=== PATIENT | female | born 1970 | race Caucasian/White ===

== ENCOUNTER → 2018-06-05 09:05 | Outpatient (CLI) | payer OTHER, SELFPAY ==
--- NOTE | 2018-06-05 09:13 | DI.CT.S_ITS ---
PROCEDURE: CT CHEST WO CON INDICATIONS: INTERCOSTAL PAIN TECHNIQUE: Noncontrast 2.0-2.5 mm thick sections acquired from the pulmonary apices to the posterior costophrenic angles. 7 mm thick coronal and sagittal MIP reformats were then acquired. A low radiation dose technique was utilized. COMPARISON: [facility], CT, PE STUDY (CTA CHEST), 11/23/2017, 12:05. FINDINGS: Image quality: Diagnostic, given the low radiation dose technique. Lungs and pleura: No infiltrate, pneumothorax or pleural effusion. The band of linear density and subpleural rounded atelectasis in the right lower lobe on last exam has resolved. There is slight, diffuse thickening of the right major fissure and there is a linear scar or atelectasis at the right base anteriorly, oriented AP. Mediastinum: Heart size is normal. No pericardial effusion. No mediastinal adenopathy by size criteria. Thoracic aorta and central pulmonary arteries are normal in size. Esophagus is normal in caliber. No hiatal hernia. Bones and chest wall: No suspicious bony lesions. No vertebral body compression fractures. No axillary or supraclavicular adenopathy by size criteria. Thyroid gland appears normal. Abdomen: Visualized upper abdomen solid organs and bowel loops appear normal in the absence of contrast. IMPRESSION: 1. No acute or active cardiopulmonary abnormality. No osseous abnormality. Source of intercostal pain not seen. 2. Mild thickening of the right major fissure and linear scar in the superior segment right lower lobe incidentally noted. Dictated by: Terrence Lin M.D. on 06/05/2018 at 10:26 Approved by: Terrence Lin M.D. on 06/05/2018 at 10:34
== END ==
PROVIDERS: Family Provider Family Medicine; PCP Family Medicine; Visit Provider Internal Medicine Rheumatology
DX: R07.82 Intercostal pain (principal)
CPT/HCPCS: 71250

== ENCOUNTER → 2018-06-27 19:59 | Outpatient (CLI) | payer OTHER, SELFPAY ==
--- NOTE | 2018-06-27 20:05 | DI.MRI.S_ITS ---
PROCEDURE: MR THORACIC SPINE WO CON INDICATIONS: BACK PAIN TECHNIQUE: Noncontrast sagittal T1 spine echo and T2 fast spin echo, sagittal STIR, axial T1 and T2 fast spin echo through the thoracic spine. COMPARISON: None. FINDINGS: Image quality: Excellent. Alignment and Curvature: There is normal bony alignment. Bone Marrow: Marrow is of normal overall signal. No acute vertebral body compression fractures. Note is made of mild degenerative disc height reduction without adjacent marrow edema at C5-6, indicating slight degenerative disc disease at this site, without spinal or foraminal stenosis. Spinal Cord: Visualized spinal cord is normal in size and signal except for presence of mild prominence of the central spinal canal from C3-4 through the C5-6 intervertebral levels, without mass effect or associated spinal and foraminal stenosis through this area.. Paraspinous Soft Tissues: No paravertebral masses. Miscellaneous: On axial images, central canal and foramina appear widely patent at all scanned levels. IMPRESSION: 1. There is a very mild degree of degenerative disc height reduction and desiccation at C5-6 without associated spinal or foraminal stenosis. 2. 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 There is no spinal or foraminal stenosis associated with this finding. The appearance is not considered to represent a cystic neoplasm of the cord or syrinx, in my opinion. If clinically desired, however, a followup thoracic spine MRI could be obtained in 6 months to establish stability over time. Dictated by: Carson Souza M.D. on 06/28/2018 at 10:04 Approved by: Carson Souza M.D. on 06/28/2018 at 10:20
== END ==
PROVIDERS: Family Provider Family Medicine; PCP Family Medicine; Visit Provider Physical Medicine & Rehabilitation Pain Medicine
DX: M50.30 Other cervical disc degeneration, unspecified cervical region (principal); M48.02 Spinal stenosis, cervical region
CPT/HCPCS: 72146

== ENCOUNTER 2018-07-24 17:02 | Emergency (ER) | payer OTHER, SELFPAY ==
[2018-07-24 17:05] VITALS: BP 151/83; PULSE 117; RESP 16; TEMP 37.1; O2SAT 100
--- NOTE | 2018-07-24 18:55 | ED.BACK ---
HPI - Back Pain/Injury <Melissa Cid PA-C - Last Filed: 07/24/18 22:48> General Chief Complaint: Back Pain/Injury Stated Complaint: STATES SEVERE RIB PAIN Time Seen by Provider: 07/24/18 18:55 Source: patient Mode of arrival: ambulatory Limitations: no limitations History of Present Illness HPI Narrative: This 47-year-old female returns to the ED due to persistent right thoracic pain which has been going on for about 9 months. She was initially diagnosed with pleurisy, which she says is better, however she continues to have pain in her right mid posterior ribs on a daily basis, worse with movement, twisting, cough. She also can sleep at night due to discomfort. She is taking Tylenol and meloxicam but states that this is no longer functioning. She was actually referred to Dr. Junior by her PCP and got thoracic MRI which shows some type of spinal cord abnormality for which she is awaiting neurology referral. He thinks this may be neuropathic pain. She states that pain is not acutely worse today, but she came home from work today due to it (she walks frequently at work) and is frustrated with her lack of improvement in pain. She states that in the past once she took a [place] with extra Tylenol for pleurisy and that seemed to help somewhat. She has not tried pain patches or other topical medications. She has not tried gabapentin or other medications for nerve pain. She denies any new injury or new pain. She denies any chest pain, new dyspnea, recent cough, extremity pain or swelling or other new symptoms and states that she mainly came here because she learned that her Neurology referral had been delayed and care line advised her to come in when she called Related Data Home Medications Medication Instructions Recorded Confirmed Vitamin B-12 1 tab PO DAILY 07/24/18 07/24/18 bupropion HCl 450 mg PO DAILY 07/24/18 07/24/18 calcium carbonate-vitamin D3 1 cap PO DAILY 07/24/18 07/24/18 [Calcium 600 + D(3)] drospirenone-ethinyl estradiol 1 tab PO QPM 07/24/18 07/24/18 [JORDAN (28)] guanfacine 1 mg PO BID 07/24/18 07/24/18 meloxicam 15 mg PO QPM 07/24/18 07/24/18 methotrexate sodium 25 mg PO QWEEK 07/24/18 07/24/18 Previous Rx's Medication Instructions Recorded gabapentin 300 mg PO Q8H #20 cap 07/24/18 lidocaine [Lidoderm] 3 patch TOP DAILY #30 each 07/24/18 Allergies Allergy/AdvReac Type Severity Reaction Status Date / Time amoxicillin Allergy Unknown HIVES Verified 07/24/18 19:41 clavulanic acid Allergy Unknown STOMACH Verified 07/24/18 19:41 erythromycin base Allergy Unknown STOMACH Verified 07/24/18 19:41 PROBLEMS bacitracin Allergy Verified 07/24/18 19:41 [From Neosporin ([id number])] fluoxetine Allergy Verified 07/24/18 19:41 neomycin Allergy Verified 07/24/18 19:41 [From Neosporin ([id number])] polymyxin B Allergy Verified 07/24/18 19:41 [From Neosporin ([id number])] Review of Systems <Melissa Cid PA-C - Last Filed: 07/24/18 22:48> Review of Systems All systems reviewed & are unremarkable except as noted in HPI and below Exam <Melissa Cid PA-C - Last Filed: 07/24/18 22:48> Narrative Exam Narrative: GENERAL APPEARANCE: Patient sitting comfortably, in no distress. NECK/THYROID: Neck supple, no JVD. LUNGS: Clear to auscultation bilaterally. HEART: Regular rate and rhythm without murmur, normal S1, S2, no S3 or S4. EXTREMITIES: No edema. No calf tenderness NEUROLOGIC: Alert and oriented, normal speech, and coordination. MS: TTP over R. mid/lateral ribs most over 7-8th ribs at R. mid to lateral scapular line DERM: No exanthem Initial Vital Signs Initial Vital Signs: Vital Signs Temperature 98.7 F 07/24/18 17:05 Pulse Rate 117 H 07/24/18 17:05 Respiratory Rate 16 07/24/18 17:05 Blood Pressure 151/83 H 07/24/18 17:05 Pulse Oximetry 100 07/24/18 17:05 <Josefina Palencia DO - Last Filed: 07/25/18 04:00> Initial Vital Signs Initial Vital Signs: Vital Signs Temperature 98.7 F 07/24/18 17:05 Pulse Rate 117 H 07/24/18 17:05 Respiratory Rate 16 07/24/18 17:05 Blood Pressure 151/83 H 07/24/18 17:05 Pulse Oximetry 100 07/24/18 17:05 Course <Melissa Cid PA-C - Last Filed: 07/24/18 22:48> Additional Information: Patient does not have any acute changes, but frustrated with difficulty pain is causing with daily activities and apparently her neurology appointment is some time out. She had taken [place] previously without side effects. We tried this tonight with Lidoderm patches and she had minimal relief. We decided to try gabapentin as Physiatry has advised her this may be nerve related pain based on her MRI findings. She was given a dose here and explained that this may need adjustment or titration with her PCP. She is agreeable and also agrees to avoid driving when using. She will see her PCP in the next few days for follow-up to determine plan for pain management while awaiting consultation Orders Ordered: Discontinued Medications Acetaminophen (Tylenol) 325 mg PO Q6HR PRN PRN Reason: As Needed for Fever/Mild Pain Last Admin: 07/24/18 19:57 Dose: 325 mg Hydrocodone Bitart/Acetaminophen ([place] 5/325) 1 tab PO NOW ONE Stop: 07/24/18 19:14 Last Admin: 07/24/18 19:56 Dose: 1 tab Gabapentin (Neurontin) 300 mg PO NOW ONE Stop: 07/24/18 21:36 Last Admin: 07/24/18 21:52 Dose: 300 mg Lidocaine (Lidoderm) 2 each TOP NOW ONE Stop: 07/24/18 19:14 Last Admin: 07/24/18 19:57 Dose: 2 each Vital Signs - 8 hr 07/24/18 22:09 Temperature 97.2 F L Pulse Rate 87 Respiratory Rate 16 Blood Pressure 109/80 Pulse Oximetry 100 <Josefina Palencia DO - Last Filed: 07/25/18 04:00> Orders Ordered: Discontinued Medications Acetaminophen (Tylenol) 325 mg PO Q6HR PRN PRN Reason: As Needed for Fever/Mild Pain Last Admin: 07/24/18 19:57 Dose: 325 mg Hydrocodone Bitart/Acetaminophen ([place] 5/325) 1 tab PO NOW ONE Stop: 07/24/18 19:14 Last Admin: 07/24/18 19:56 Dose: 1 tab Gabapentin (Neurontin) 300 mg PO NOW ONE Stop: 07/24/18 21:36 Last Admin: 07/24/18 21:52 Dose: 300 mg Lidocaine (Lidoderm) 2 each TOP NOW ONE Stop: 07/24/18 19:14 Last Admin: 07/24/18 19:57 Dose: 2 each Vital Signs - 8 hr 07/24/18 22:09 Temperature 97.2 F L Pulse Rate 87 Respiratory Rate 16 Blood Pressure 109/80 Pulse Oximetry 100 Discharge Plan Departure Patient Disposition: Home Clinical Impression: Right-sided thoracic back pain Discharge Date/Time: 07/24/18 22:10 Interventions: ED Discharge Assessment Last Done: 07/24/18 22:09 Instructions: DI for Thoracic Back Pain Activity Restrictions/Additional Instructions: Please return if you have any acutely he worsening symptoms. I have sent in a prescription for the lidocaine patch to your pharmacy to try. You can wear up to 3 at a time for up to 12 hr daily. If these are not covered on your insurance, there is a similar 4% patch that you can buy [id number]. I have also sent in a prescription for gabapentin, that we gave you here tonight to try. This is often more helpful for nerve pain then other medications, and since the hydrocodone/acetaminophen only helped a little bit, this is worth trying. You can continue Tylenol as needed. Continue your meloxicam as well. You should avoid driving while on the gabapentin until you know how sleepy it makes you. I have given you the usual starting dose of 300 mg every 8 hr. You can increase the dose to 2 capsules at bedtime if needed, and you may need to get a smaller dose from your PCP if these are too sedating. Please follow-up with your PCP in the next 2 or 3 days to assess how this is working and figure out a a plan to help with her pain while you are awaiting the neurology evaluation Prescriptions: New gabapentin 300 mg capsule 300 mg PO Q8H Qty: 20 RF: 0 lidocaine [Lidoderm] 5 % adhesive patch,medicated 3 patch TOP DAILY Qty: 30 RF: 0 No Action meloxicam 15 mg tablet 15 mg PO QPM RF: 0 methotrexate sodium 2.5 mg tablet 25 mg PO QWEEK RF: 0 guanfacine 1 mg tablet 1 mg PO BID RF: 0 bupropion HCl 150 mg tablet extended release 24 hr 450 mg PO DAILY RF: 0 drospirenone-ethinyl estradiol [JORDAN (28)] 3-0.02 mg tablet 1 tab PO QPM RF: 0 calcium carbonate-vitamin D3 [Calcium 600 + D(3)] 600 mg calcium- 200 unit Capsule 1 cap PO DAILY RF: 0 Vitamin B-12 1 tab PO DAILY RF: 0 Referrals: Alison Bird MD [Primary Care Provider] - Madhu Junior MD [Physician] - <Josefina Palencia DO - Last Filed: 07/25/18 04:00> Cosign ED Attending Cosignature Attestation: I was immediately available in the department for consultation. This documentation has been reviewed and I agree with assessment and plan. Supervised by Josefina Palencia DO
--- NOTE | 2018-07-24 19:16 | ED_ITS ---
HPI - Back Pain/Injury <Melissa Cid PA-C - Last Filed: 07/24/18 22:48> General Chief Complaint: Back Pain/Injury Stated Complaint: STATES SEVERE RIB PAIN Time Seen by Provider: 07/24/18 18:55 Source: patient Mode of arrival: ambulatory Limitations: no limitations History of Present Illness HPI Narrative: This 47-year-old female returns to the ED due to persistent right thoracic pain which has been going on for about 9 months. She was initially diagnosed with pleurisy, which she says is better, however she continues to have pain in her right mid posterior ribs on a daily basis, worse with movement, twisting, cough. She also can sleep at night due to discomfort. She is taking Tylenol and meloxicam but states that this is no longer functioning. She was actually referred to Dr. Junior by her PCP and got thoracic MRI which shows some type of spinal cord abnormality for which she is awaiting neurology referral. He thinks this may be neuropathic pain. She states that pain is not acutely worse today, but she came home from work today due to it ( she walks frequently at work) and is frustrated with her lack of improvement in pain. She states that in the past once she took a [place] with extra Tylenol for pleurisy and that seemed to help somewhat. She has not tried pain patches or other topical medications. She has not tried gabapentin or other medications for nerve pain. She denies any new injury or new pain. She denies any chest pain , new dyspnea, recent cough, extremity pain or swelling or other new symptoms and states that she mainly came here because she learned that her Neurology referral had been delayed and care line advised her to come in when she called Related Data Home Medications Medication Instructions Recorded Confirmed Vitamin B-12 1 tab PO DAILY 07/24/18 07/24/18 bupropion HCl 450 mg PO DAILY 07/24/18 07/24/18 calcium carbonate-vitamin D3 1 cap PO DAILY 07/24/18 07/24/18 [Calcium 600 + D(3)] drospirenone-ethinyl estradiol 1 tab PO QPM 07/24/18 07/24/18 [JORDAN (28)] guanfacine 1 mg PO BID 07/24/18 07/24/18 meloxicam 15 mg PO QPM 07/24/18 07/24/18 methotrexate sodium 25 mg PO QWEEK 07/24/18 07/24/18 Previous Rx's Medication Instructions Recorded gabapentin 300 mg PO Q8H #20 cap 07/24/18 lidocaine [Lidoderm] 3 patch TOP DAILY #30 each 07/24/18 Allergies Allergy/AdvReac Type Severity Reaction Status Date / Time amoxicillin Allergy Unknown HIVES Verified 07/24/18 19:41 clavulanic acid Allergy Unknown STOMACH Verified 07/24/18 19:41 erythromycin base Allergy Unknown STOMACH Verified 07/24/18 19:41 PROBLEMS bacitracin Allergy Verified 07/24/18 19:41 [From Neosporin ([id number])] fluoxetine Allergy Verified 07/24/18 19:41 neomycin Allergy Verified 07/24/18 19:41 [From Neosporin ([id number])] polymyxin B Allergy Verified 07/24/18 19:41 [From Neosporin ([id number])] Review of Systems <Melissa Cid PA-C - Last Filed: 07/24/18 22:48> Review of Systems All systems reviewed & are unremarkable except as noted in HPI and below Exam <Melissa Cid PA-C - Last Filed: 07/24/18 22:48> Narrative Exam Narrative: GENERAL APPEARANCE: Patient sitting comfortably, in no distress. NECK/THYROID: Neck supple, no JVD. LUNGS: Clear to auscultation bilaterally. HEART: Regular rate and rhythm without murmur, normal S1, S2, no S3 or S4. EXTREMITIES: No edema. No calf tenderness NEUROLOGIC: Alert and oriented, normal speech, and coordination. MS: TTP over R. mid/lateral ribs most over 7-8th ribs at R. mid to lateral scapular line DERM: No exanthem Initial Vital Signs Initial Vital Signs: Vital Signs Temperature 98.7 F 07/24/18 17:05 Pulse Rate 117 H 07/24/18 17:05 Respiratory Rate 16 07/24/18 17:05 Blood Pressure 151/83 H 07/24/18 17:05 Pulse Oximetry 100 07/24/18 17:05 <Josefina Palencia DO - Last Filed: 07/25/18 04:00> Initial Vital Signs Initial Vital Signs: Vital Signs Temperature 98.7 F 07/24/18 17:05 Pulse Rate 117 H 07/24/18 17:05 Respiratory Rate 16 07/24/18 17:05 Blood Pressure 151/83 H 07/24/18 17:05 Pulse Oximetry 100 07/24/18 17:05 Course <Melissa Cid PA-C - Last Filed: 07/24/18 22:48> Additional Information: Patient does not have any acute changes, but frustrated with difficulty pain is causing with daily activities and apparently her neurology appointment is some time out. She had taken [place] previously without side effects. We tried this tonight with Lidoderm patches and she had minimal relief. We decided to try gabapentin as Physiatry has advised her this may be nerve related pain based on her MRI findings. She was given a dose here and explained that this may need adjustment or titration with her PCP. She is agreeable and also agrees to avoid driving when using. She will see her PCP in the next few days for follow-up to determine plan for pain management while awaiting consultation Orders Ordered: Discontinued Medications Acetaminophen (Tylenol) 325 mg PO Q6HR PRN PRN Reason: As Needed for Fever/Mild Pain Last Admin: 07/24/18 19:57 Dose: 325 mg Hydrocodone Bitart/Acetaminophen ([place] 5/325) 1 tab PO NOW ONE Stop: 07/24/18 19:14 Last Admin: 07/24/18 19:56 Dose: 1 tab Gabapentin (Neurontin) 300 mg PO NOW ONE Stop: 07/24/18 21:36 Last Admin: 07/24/18 21:52 Dose: 300 mg Lidocaine (Lidoderm) 2 each TOP NOW ONE Stop: 07/24/18 19:14 Last Admin: 07/24/18 19:57 Dose: 2 each Vital Signs - 8 hr 07/24/18 22:09 Temperature 97.2 F L Pulse Rate 87 Respiratory Rate 16 Blood Pressure 109/80 Pulse Oximetry 100 <Josefina Palencia DO - Last Filed: 07/25/18 04:00> Orders Ordered: Discontinued Medications Acetaminophen (Tylenol) 325 mg PO Q6HR PRN PRN Reason: As Needed for Fever/Mild Pain Last Admin: 07/24/18 19:57 Dose: 325 mg Hydrocodone Bitart/Acetaminophen ([place] 5/325) 1 tab PO NOW ONE Stop: 07/24/18 19:14 Last Admin: 07/24/18 19:56 Dose: 1 tab Gabapentin (Neurontin) 300 mg PO NOW ONE Stop: 07/24/18 21:36 Last Admin: 07/24/18 21:52 Dose: 300 mg Lidocaine (Lidoderm) 2 each TOP NOW ONE Stop: 07/24/18 19:14 Last Admin: 07/24/18 19:57 Dose: 2 each Vital Signs - 8 hr 07/24/18 22:09 Temperature 97.2 F L Pulse Rate 87 Respiratory Rate 16 Blood Pressure 109/80 Pulse Oximetry 100 Discharge Plan Departure Patient Disposition: Home Clinical Impression: Right-sided thoracic back pain Discharge Date/Time: 07/24/18 22:10 Interventions: ED Discharge Assessment Last Done: 07/24/18 22:09 Instructions: DI for Thoracic Back Pain Activity Restrictions/Additional Instructions: Please return if you have any acutely he worsening symptoms. I have sent in a prescription for the lidocaine patch to your pharmacy to try. You can wear up to 3 at a time for up to 12 hr daily. If these are not covered on your insurance, there is a similar 4% patch that you can buy [id number]. I have also sent in a prescription for gabapentin, that we gave you here tonight to try. This is often more helpful for nerve pain then other medications, and since the hydrocodone/acetaminophen only helped a little bit, this is worth trying. You can continue Tylenol as needed. Continue your meloxicam as well. You should avoid driving while on the gabapentin until you know how sleepy it makes you. I have given you the usual starting dose of 300 mg every 8 hr. You can increase the dose to 2 capsules at bedtime if needed, and you may need to get a smaller dose from your PCP if these are too sedating. Please follow-up with your PCP in the next 2 or 3 days to assess how this is working and figure out a a plan to help with her pain while you are awaiting the neurology evaluation Prescriptions: New gabapentin 300 mg capsule 300 mg PO Q8H Qty: 20 RF: 0 lidocaine [Lidoderm] 5 % adhesive patch,medicated 3 patch TOP DAILY Qty: 30 RF: 0 No Action meloxicam 15 mg tablet 15 mg PO QPM RF: 0 methotrexate sodium 2.5 mg tablet 25 mg PO QWEEK RF: 0 guanfacine 1 mg tablet 1 mg PO BID RF: 0 bupropion HCl 150 mg tablet extended release 24 hr 450 mg PO DAILY RF: 0 drospirenone-ethinyl estradiol [JORDAN (28)] 3-0.02 mg tablet 1 tab PO QPM RF: 0 calcium carbonate-vitamin D3 [Calcium 600 + D(3)] 600 mg calcium- 200 unit Capsule 1 cap PO DAILY RF: 0 Vitamin B-12 1 tab PO DAILY RF: 0 Referrals: Alison Bird MD [Primary Care Provider] - Madhu Junior MD [Physician] - <Josefina Palencia DO - Last Filed: 07/25/18 04:00> Cosign ED Attending Cosignature Attestation: I was immediately available in the department for consultation. This documentation has been reviewed and I agree with assessment and plan. Supervised by Josefina Palencia DO
[2018-07-24] MEDS: HYDROCODONE/ACET 5/325 TABLET 1 TAB PO (19:56)
[2018-07-24] MEDS: ACETAMINOPHEN 325 MG TABLET PO (19:57)
[2018-07-24] MEDS: LIDOCAINE PATCH 1 EACH ADH..PATCH 2 EACH TOP (19:57)
[2018-07-24] MEDS: GABAPENTIN 300 MG CAPSULE PO (21:52)
[2018-07-24 22:09] VITALS: BP 109/80; PULSE 87; RESP 16; TEMP 36.2; O2SAT 100
== END 2018-07-24 22:10 | disposition home or self-care (01) ==
PROVIDERS: Emergency Provider Internal Medicine; Family Provider Family Medicine; PCP Family Medicine
DX: M54.6 Pain in thoracic spine (principal)
CPT/HCPCS: 99282; 99283

== ENCOUNTER 2018-07-31 10:46 | Emergency (ER) | payer OTHER, SELFPAY ==
[2018-07-31] VITALS (11 sets, daily range): BP systolic 106–126; BP diastolic 61–79; PULSE 89–118; RESP 12–28; TEMP 36.6; O2SAT 93–100; BMI 20.5
--- NOTE | 2018-07-31 11:28 | ED.BACK ---
HPI - Back Pain/Injury General Chief Complaint: Back Pain/Injury Stated Complaint: BACK PAIN MOVING TOWARDS RIBS Time Seen by Provider: 07/31/18 10:50 Source: patient and family Mode of arrival: ambulatory Limitations: no limitations History of Present Illness HPI Narrative: 47-year-old female presents with her for evaluation of ongoing right-sided upper back pain that has been present for many months. She had initially been treated for pleurisy a few times and without resolution she was eventually referred to a pain physician. This physician ordered an MRI and noted some abnormalities in her thoracic region which prompted an outpatient routine referral to [facility]rology at [facility]. The appointment is on . She denies any numbness, tingling or weakness. Her pain had improved a bit after some hydrocodone but is now keeping her awake at night. She denies any chest pain or shortness of breath. She denies nausea, vomiting or diarrhea. She denies abdominal pain. Her pain is worse when she moves and improves with rest MD Complaint: back pain Onset (ago): minute(s) Duration: constant Similar Symptoms Previously: Yes Location: thoracic spine and right upper back Severity: moderate Quality: sharp and stabbing Radiation: none Relieving factors: immobilization Exacerbating factors: movement Treatments prior to arrival: prescription analgesics Related Data Home Medications Medication Instructions Recorded Confirmed Vitamin B-12 1 tab PO DAILY 07/24/18 07/31/18 bupropion HCl 450 mg PO DAILY 07/24/18 07/31/18 calcium carbonate-vitamin D3 1 cap PO DAILY 07/24/18 07/31/18 [Calcium 600 + D(3)] drospirenone-ethinyl estradiol 1 tab PO QPM 07/24/18 07/31/18 [JORDAN (28)] guanfacine 1 mg PO BID 07/24/18 07/31/18 meloxicam 15 mg PO QPM 07/24/18 07/31/18 methotrexate sodium 25 mg PO SA 07/24/18 07/31/18 gabapentin 1 cap PO TID 07/31/18 07/31/18 Previous Rx's Medication Instructions Recorded ondansetron [Zofran ODT] 4 mg PO Q6H PRN #14 tab 07/31/18 oxycodone 5 mg PO Q4-6H PRN #20 tab 07/31/18 Allergies Allergy/AdvReac Type Severity Reaction Status Date / Time amoxicillin Allergy Unknown HIVES Verified 07/31/18 10:53 clavulanic acid Allergy Unknown STOMACH Verified 07/31/18 10:53 erythromycin base Allergy Unknown STOMACH Verified 07/31/18 10:53 PROBLEMS bacitracin Allergy Verified 07/31/18 10:53 [From Neosporin ([id number])] fluoxetine Allergy Verified 07/31/18 10:53 neomycin Allergy Verified 07/31/18 10:53 [From Neosporin ([id number])] polymyxin B Allergy Verified 07/31/18 10:53 [From Neosporin ([id number])] Review of Systems Review of Systems All systems reviewed & are unremarkable except as noted in HPI and below Constitutional Denies chills, Denies fever(s), Denies lethargy and Denies weakness Eyes Denies change in vision, Denies eye discharge, Denies irritation and Denies loss of vision ENT Ears, Nose, Mouth, and Throat: Denies change in voice, Denies neck pain and Denies sore throat Cardiovascular Denies chest pain, Denies irregular heart rhythm, Denies lightheadedness, Denies palpitations, Denies dyspnea, Denies dyspnea on exertion and Denies orthopnea Respiratory Denies cough, Denies dyspnea, Denies dyspnea on exertion and Denies wheezing Gastrointestinal Gastrointestinal: Denies abdominal pain, Denies change in bowel habits, Denies diarrhea, Denies nausea and Denies vomiting Genitourinary Denies hematuria, Denies flank pain, Denies urinary incontinence and Denies urinary urgency Musculoskeletal Reports back pain, Reports limited range of motion and Denies neck pain Integumentary/Breasts Denies pruritus, Denies erythema, Denies rash and Denies wounds Neurologic Denies confusion, Denies loss of vision and Denies weakness Psychiatric Denies anxiety, Denies confusion, Denies depression, Denies homicidal ideation and Denies suicidal ideation Endocrine Denies palpitations Hematologic/Lymphatic Denies easy bruising Allergic/Immunologic Denies wheezing PFSH Medical History Chronic thoracic back pain (Chronic) Depression (Chronic) Rheumatoid arthritis (Chronic) Pleurisy without effusion (Resolved) Social History Smoking Status: Never smoker alcohol intake: never substance use type: does not use Exam Narrative Exam Narrative: 47F laying on her side, obviously in pain Initial Vital Signs Initial Vital Signs: Vital Signs Temperature 97.9 F 07/31/18 10:53 Pulse Rate 118 H 07/31/18 10:53 Respiratory Rate 18 07/31/18 10:53 Pulse Oximetry 93 07/31/18 10:53 Const General: cooperative, well developed and in distress Nutritional Appearance: well nourished Orientation: alert, awake, oriented x3 and not confused [place] Head: normocephalic and atraumatic Ears: external ears normal and TM's normal bilaterally Nose: external nose normal and No nasal discharge Face and sinus: sinuses nontender, face symmetric, no sinus tenderness and No dry mucous membranes Mouth: oral mucosae normal and moist mucous membranes Teeth and gingiva: dentition normal Throat: tonsils normal and uvula midline Neck Neck: normal visual inspection, trachea midline, No lymphadenopathy, No midline deformity and No JVD Lymphatic: No lymphedema Resp Effort & Inspection: normal respiratory effort, able to speak in complete sentences, no respiratory distress and no use of accessory muscles Auscultation: clear to auscultation bilaterally, no rales, no rhonchi and no wheezes GI Inspection: non-distended Palpation: soft, no hepatosplenomegaly, No guarding, No pulsatile mass and tender Auscultation: normal bowel sounds Back/Spine/Pelvis Thoracic/Lumbar Spine: thoracic and lumbar spine normal to inspection Skin General: no rashes or lesions noted, No jaundice and No petechiae Other: No signs of shingles Neuro General: alert, oriented x3, gait normal and no focal motor deficits Speech: speech normal Extrem General: full ROM, no clubbing, cyanosis or edema, no pedal edema and no calf tenderness Course Orders Ordered: Discontinued Medications Hydromorphone HCl (Dilaudid) 1 mg SUBCUT Q4H PRN PRN Reason: Pain, Severe (7-10) Last Admin: 07/31/18 16:37 Dose: 1 mg Admin: 07/31/18 12:00 Dose: 1 mg Sodium Chloride (Normal Saline 0.9%) 1,000 mls @ 150 mls/hr IV CONT DEVENDRA Last Infusion: 07/31/18 16:37 Dose: 0 mls/hr Admin: 07/31/18 15:16 Dose: 150 mls/hr Reevaluation(s) Reevaluation #1: Spoke with the patient's neurosurgeon, will see her on and he recommends CT scan of the entire spine to rule out Arnold-Chiari, provided there is no abnormal finding on CT she can be discharged on pain control with follow-up as planned Reevaluation #2: Ultrasound ordered given tenderness in epigastrium and right upper quadrant pain that had not previously been recognized. This could perhaps be the cause of her ongoing pain Vital Signs - 8 hr 07/31/18 10:53 07/31/18 11:44 07/31/18 12:10 Temperature 97.9 F Pulse Rate 118 H 102 H 105 H Respiratory Rate 18 20 17 Blood Pressure [Left Arm] 115/65 106/71 Pulse Oximetry 93 99 100 07/31/18 12:54 07/31/18 13:13 07/31/18 13:55 Temperature Pulse Rate 104 H 89 96 H Respiratory Rate 21 28 H 18 Blood Pressure [Left Arm] 121/67 123/69 121/72 Pulse Oximetry 100 98 100 07/31/18 14:09 07/31/18 15:04 07/31/18 15:38 Temperature Pulse Rate 101 H 103 H 101 H Respiratory Rate 15 15 13 Blood Pressure [Left Arm] 126/73 111/76 118/61 Pulse Oximetry 94 97 100 07/31/18 16:12 Temperature Pulse Rate 93 H Respiratory Rate 14 Blood Pressure [Left Arm] 119/62 Pulse Oximetry 100 MDM - Back Pain/Injury Differential Diagnosis Differential diagnosis: Likely lumbar radiculopathy, sciatica, strain of lumbar region, renal colic and pyelonephritis Lab Data Attestation: I reviewed the patient's lab results. Result diagrams: 07/31/18 15:05 07/31/18 15:05 Lab Results 07/31/18 07/31/18 Range/Units 15:05 15:05 WBC 11.3 H (4.5-11.0) X10^3/uL RBC 4.05 (4.0-5.2) X10^6/uL Hgb 12.1 (12.0-16.0) g/dL Hct 36.1 (36-46) % MCV 89.1 (80-100) fL MCH 29.9 (26-34) PG MCHC 33.5 (30-36) % RDW 13.9 (11.6-14.8) % Plt Count 368 (150-400) X10^3/uL Neut % (Auto) 83.6 H (50-75) % Lymph % (Auto) 9.1 L (25-40) % [place] % (Auto) 4.5 (3-14) % Eos % (Auto) 2.2 (2-4) % Baso % (Auto) 0.6 (0-2) % Neut # (Auto) 9400 H (7624-5431) /uL Sodium 139 (137-145) mmol/L Potassium 4.0 (3.4-5.1) mmol/L Chloride 102 (98-107) mmol/L Carbon Dioxide 27 (22-32) mmol/L BUN 13 (7-17) mg/dL Creatinine 0.90 (0.52-1.04) mg/dL Estimated GFR > 60.0 (>60) mL/min BUN/Creatinine Ratio 14.4 (6-22) Glucose 145 H (70-100) mg/dL Calcium 9.2 (8.4-10.2) mg/dL Total Bilirubin 0.6 (0.2-1.3) mg/dL AST 17 (14-36) IU/L ALT 18 (9-52) IU/L Alkaline Phosphatase 90 (38-126) U/L Total Protein 7.3 (6.3-8.2) g/dL Albumin 4.1 (3.5-5.0) g/dL Globulin 3.2 (1.7-4.1) g/dL Albumin/Globulin Ratio 1.3 (1.0-2.8) Lipase 27 (23-300) U/L Imaging Data CT scan - head: Radiologist's impression: PROCEDURE: CT HEAD/BRAIN WO CON INDICATIONS: request from [facility]. Severe, back, rib pain TECHNIQUE: Noncontrast 4.5 mm thick angled axial sections acquired from the foramen magnum to the vertex, with coronal and sagittal reformats. For radiation dose reduction, the following was used: automated exposure control, adjustment of mA and/or kV according to patient size. COMPARISON: None. FINDINGS: Image quality: Excellent. CSF spaces: Basal cisterns are patent. No extra-axial fluid collections. Ventricles are normal in size and shape. Brain: No midline shift. No intracranial masses or hemorrhage. Keita-white matter interface is normal. Skull and face: Calvarium and visualized facial bones are intact, without suspicious lesions. Sinuses: Visualized sinuses and mastoids are clear. IMPRESSION: 1. No acute intracranial abnormalities. Dictated by: Conor Hurst M.D. on 07/31/2018 at 13:01 Transcribed by: HAO on 07/31/2018 at 13:03 PROCEDURE: CT CERVICAL SPINE WO CON INDICATIONS: severe back pain, non traumatic, request from [facility] TECHNIQUE: Noncontrast 3 mm thick sections acquired from the skull base to the T4 level. Sagittal and coronal reformats were then constructed. For radiation dose reduction, the following was used: automated exposure control, adjustment of mA and/or kV according to patient size. COMPARISON: [facility], , MR THORACIC SPINE WO CON, 06/27/2018, 20:17. FINDINGS: Image quality: Excellent. Bones: No fractures or dislocations. There is egna-dv-rvwdrcyy degenerative disc disease at C5-C6 with posterior disc bulge and disc osteophyte complex, causing mild central canal stenosis. Visualized superior ribs are intact. Soft tissues: Prevertebral soft tissues are normal in thickness. No paravertebral hematomas. No apical pneumothoraces. IMPRESSION: 1. Mild to moderate degenerative disease at C5-C6. 2. Mild central canal stenosis at C5-C6. 3. If clinical symptoms persist or clinical suspicion for pathology is high, MRI may be helpful for further evaluation. Dictated by: Conor Hurst M.D. on 07/31/2018 at 13:03 Transcribed by: HAO on 07/31/2018 at 13:06 Approved by: Conor Hurst M.D. on 07/31/2018 at 13:11 Patient: Eun Mcdowell R#: [id number] : 1Acct:[id number] Age/Sex: 88 / MDate of Service: 07/31/18 Loc: ED Accession Number: [id number] Procedure: CT head/brain wo con Ordering Provider: Reinier Bose D.O. PROCEDURE: CT HEAD/BRAIN WO CON INDICATIONS: stroke symptoms upon waking. Decreased balance TECHNIQUE: Noncontrast 4.5 mm thick angled axial sections acquired from the foramen magnum to the vertex, with coronal and sagittal reformats. For radiation dose reduction, the following was used: automated exposure control, adjustment of mA and/or kV according to patient size. COMPARISON: [facility], CT, HEAD WITHOUT CONTRAST, 08/06/2017, 13:23. FINDINGS: Image quality: Excellent. CSF spaces: Basal cisterns are patent. No extra-axial fluid collections. The ventricles are symmetric in size and shape. Brain: There is a small infarct in the left occipital lobe, unchanged. No intracranial bleeds or masses. There is cerebral volume loss for age, with resultant ventricular and sulcal prominence. There are periventricular and deep white matter chronic small vessel ischemic changes. There is intracranial internal carotid artery atherosclerosis. Skull and face: Calvarium and visualized facial bones appear intact, without suspicious lesions. Sinuses: Visualized sinuses and mastoids are clear. IMPRESSION: 1. No acute intracranial abnormalities. 2. 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 3. Cerebral volume loss and chronic microvascular ischemic changes. Dictated by: Conor Hurst M.D. on 07/31/2018 at 12:59 Approved by: Conor Hurst M.D. on 07/31/2018 at 13:00 PROCEDURE: CT LUMBAR SPINE WO CON INDICATIONS: severe midback pain, nontraumatic, per [facility] TECHNIQUE: Noncontrast 3 mm thick sections acquired from the T12 level to the sacrum. Sagittal and coronal reformats were constructed. For radiation dose reduction, the following was used: automated exposure control. COMPARISON: [facility], CT, CT THORACIC SPINE WO CON, 07/31/2018, 12:26. [facility], MR, MR THORACIC SPINE WO CON, 06/27/2018, 20:17. FINDINGS: Image quality: Excellent. Bones: There is normal bony alignment. No acute vertebral body compression fractures. No suspicious lytic or blastic bony lesions. Central spinal caliber is of normal overall caliber. No pars defects. Soft tissues: No retroperitoneal masses or hematomas. Visualized aorta is normal in caliber. There are multiple gallstones. Mild right pleural thickening and right basilar atelectasis. IMPRESSION: 1. No acute abnormalities in lumbar spine seen on CT. 2. Cholelithiasis. 3. Mild right pleural thickening and right basilar atelectasis. Dictated by: Conor Hurst M.D. on 07/31/2018 at 13:12 Approved by: oCnor Hurst M.D. on 07/31/2018 at 13:15 US - abdomen: Radiologist's impression: [address] [address] Ultrasound Report Signed Patient: Mendy Briones KMR#: [id number] : 1970Acct:[id number] Age/Sex: 47 / FDate of Service: 07/31/18 Loc: ED Accession Number: [id number] Procedure: US abdomen limited Ordering Provider: Reinier Bose D.O. PROCEDURE: US ABDOMEN LIMITED INDICATIONS: RUQ pain, stones on CT TECHNIQUE: Real-time focused scanning was performed of the right upper quadrant of the abdomen, with image documentation. COMPARISON: [facility], CT, CT LUMBAR SPINE WO CON, 07/31/2018, 12:26. FINDINGS: The liver is normal in size and echogenicity. There is a small echogenic focus identified within the posterior right hepatic lobe near the right kidney, which measures up to 1.6 cm in diameter. No increased vascularity is demonstrated to this structure. No additional liver abnormalities are appreciated. The gallbladder is normal in size without gallbladder wall thickening or pericholecystic fluid. Multiple gallstones are contained within the gallbladder. The patient did not exhibit a positive sonographic Fernandez sign. There is no intrahepatic or extrahepatic biliary dilatation. Common bile duct measures 4 mm in diameter. The imaged portions of the pancreas are unremarkable. The right kidney measures approximately 9.5 cm in length. The abdominal aorta and inferior vena cava were not imaged. IMPRESSION: 1. Extensive cholelithiasis. No convincing sonographic findings of acute cholecystitis. 2. Small hemangioma versus focal area of fatty infiltration involving the right hepatic lobe. A dedicated nonemergent MRI with contrast of the liver is recommended for better interpretation. Dictated by: Romain Urbina M.D. on 07/31/2018 at 14:44 Approved by: Romain Urbina M.D. on 07/31/2018 at 14:46 MDM Narrative Medical decision making narrative: Patient presents with this pain for quite some time and states that is essentially the same as it had been. Her neurosurgeon doubts the abnormal findings on the MRI are what are causing her pain. She does have gallstones noted on imaging but there are no findings consistent with cholecystitis and the patient has normal labs suggesting this is not likely acute cholecystitis. Discharge Plan Departure Patient Disposition: Home Clinical Impression: Acute flank pain Discharge Date/Time: 07/31/18 17:14 Interventions: ED Discharge Assessment Last Done: 07/31/18 17:13 Instructions: DI for Flank Pain Activity Restrictions/Additional Instructions: *You have been diagnosed with [right flank pain, cholelithiasis ] *What to do: *Take medications as directed *Follow up with your primary care provider in 2-3 days, call for an appointment. Let them know you were seen in the Emergency Department and that we ask that you be seen in follow up *Return to ER if you should have any new, worsening or concerning symptoms, such as fever over 101 F, persistent vomiting, yellowing of her skin, or neurologic symptoms such as numbness, tingling or weakness Prescriptions: New oxycodone 5 mg tablet 5 mg PO Q4-6H PRN (Reason: pain) Qty: 20 RF: 0 ondansetron [Zofran ODT] 4 mg tablet,disintegrating 4 mg PO Q6H PRN (Reason: nausea and vomiting) Qty: 14 RF: 0 No Action meloxicam 15 mg tablet 15 mg PO QPM RF: 0 methotrexate sodium 2.5 mg tablet 25 mg PO SA RF: 0 guanfacine 1 mg tablet 1 mg PO BID RF: 0 bupropion HCl 150 mg tablet extended release 24 hr 450 mg PO DAILY RF: 0 drospirenone-ethinyl estradiol [JORDAN (28)] 3-0.02 mg tablet 1 tab PO QPM RF: 0 calcium carbonate-vitamin D3 [Calcium 600 + D(3)] 600 mg calcium- 200 unit Capsule 1 cap PO DAILY RF: 0 Vitamin B-12 1 tab PO DAILY RF: 0 gabapentin 100 mg capsule 1 cap PO TID RF: 0 Referrals: Alison Bird MD [Primary Care Provider] - Afshin Lainez MD [Physician] -
[2018-07-31] MEDS: HYDROMORPHONE 2 MG INJ 1 MG SUBCUT ×2 (12:00→16:37)
--- NOTE | 2018-07-31 12:16 | DI.CT.S_ITS ---
PROCEDURE: CT CERVICAL SPINE WO CON INDICATIONS: severe back pain, non traumatic, request from [facility] TECHNIQUE: Noncontrast 3 mm thick sections acquired from the skull base to the T4 level. Sagittal and coronal reformats were then constructed. For radiation dose reduction, the following was used: automated exposure control, adjustment of mA and/or kV according to patient size. COMPARISON: [facility], MR, MR THORACIC SPINE WO CON, 06/27/2018, 20:17. FINDINGS: Image quality: Excellent. Bones: No fractures or dislocations. There is zzur-pg-zooeorha degenerative disc disease at C5-C6 with posterior disc bulge and disc osteophyte complex, causing mild central canal stenosis. Visualized superior ribs are intact. Soft tissues: Prevertebral soft tissues are normal in thickness. No paravertebral hematomas. No apical pneumothoraces. IMPRESSION: 1. Mild to moderate degenerative disease at C5-C6. 2. Mild central canal stenosis at C5-C6. 3. If clinical symptoms persist or clinical suspicion for pathology is high, MRI may be helpful for further evaluation. Dictated by: Conor Hurst M.D. on 07/31/2018 at 13:03 Transcribed by: HAO on 07/31/2018 at 13:06 Approved by: Conor Hurst M.D. on 07/31/2018 at 13:11
--- NOTE | 2018-07-31 12:16 | DI.CT.S_ITS ---
PROCEDURE: CT HEAD/BRAIN WO CON INDICATIONS: request from [facility]. Severe, back, rib pain TECHNIQUE: Noncontrast 4.5 mm thick angled axial sections acquired from the foramen magnum to the vertex, with coronal and sagittal reformats. For radiation dose reduction, the following was used: automated exposure control, adjustment of mA and/or kV according to patient size. COMPARISON: None. FINDINGS: Image quality: Excellent. CSF spaces: Basal cisterns are patent. No extra-axial fluid collections. Ventricles are normal in size and shape. Brain: No midline shift. No intracranial masses or hemorrhage. Keita-white matter interface is normal. Skull and face: Calvarium and visualized facial bones are intact, without suspicious lesions. Sinuses: Visualized sinuses and mastoids are clear. IMPRESSION: 1. No acute intracranial abnormalities. Dictated by: Conor Hurst M.D. on 07/31/2018 at 13:01 Transcribed by: HAO on 07/31/2018 at 13:03 Approved by: Conor Hurst M.D. on 07/31/2018 at 13:07
--- NOTE | 2018-07-31 12:16 | DI.CT.S_ITS ---
PROCEDURE: CT LUMBAR SPINE WO CON INDICATIONS: severe midback pain, nontraumatic, per [facility] TECHNIQUE: Noncontrast 3 mm thick sections acquired from the T12 level to the sacrum. Sagittal and coronal reformats were constructed. For radiation dose reduction, the following was used: automated exposure control. COMPARISON: [facility], CT, CT THORACIC SPINE WO CON, 07/31/2018, 12:26. [facility], MR, MR THORACIC SPINE WO CON, 06/27/2018, 20:17. FINDINGS: Image quality: Excellent. Bones: There is normal bony alignment. No acute vertebral body compression fractures. No suspicious lytic or blastic bony lesions. Central spinal caliber is of normal overall caliber. No pars defects. Soft tissues: No retroperitoneal masses or hematomas. Visualized aorta is normal in caliber. There are multiple gallstones. Mild right pleural thickening and right basilar atelectasis. IMPRESSION: 1. No acute abnormalities in lumbar spine seen on CT. 2. Cholelithiasis. 3. Mild right pleural thickening and right basilar atelectasis. Dictated by: Conor Hurst M.D. on 07/31/2018 at 13:12 Approved by: Conor Hurst M.D. on 07/31/2018 at 13:15
--- NOTE | 2018-07-31 12:16 | DI.CT.S_ITS ---
PROCEDURE: CT THORACIC SPINE WO CON INDICATIONS: severe midback pain, nontraumatic, per [facility] TECHNIQUE: Noncontrast 3 mm thick sections acquired through the region of interest in the thoracic spine. Sagittal and coronal reformats were then constructed. For radiation dose reduction, the following was used: automated exposure control. COMPARISON: [facility], CR, CHEST 2 VIEW, 11/23/2017, 9:08. [facility], CT, PE STUDY (CTA CHEST), 11/23/2017, 12:05. [facility], CT, CT LUMBAR SPINE WO CON, 07/31/2018, 12:26. [facility], CT, CT CHEST WO CON, 06/05/2018, 9:06. [facility], CT, CT CERVICAL SPINE WO CON, 07/31/2018, 12:26. [facility], MR, MR THORACIC SPINE WO CON, 06/27/2018, 20:17. FINDINGS: Image quality: Excellent. Bones: There is normal overall bony alignment. No acute vertebral body compression fractures. No suspicious sclerotic or lytic bony lesions. Mild degenerative disc disease at T2-T3, T5-T6, T6-T7, T7-T8 and T8-T9. Central spinal canal is of normal overall caliber. Soft tissues: No paravertebral masses or hematomas. Visualized posteromedial lungs appear clear. IMPRESSION: 1. Mild degenerative disc disease in thoracic spine. 2. No central canal or foramina stenosis. 3. 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 If acute worsening of clinical symptoms, repeat MRI with and without contrast is suggested for further evaluation. 4. Small right pleural effusion or pleural thickening with right basilar atelectasis. 5. Cholelithiasis. Dictated by: Conor Hurst M.D. on 07/31/2018 at 13:15 Approved by: Conor Hurst M.D. on 07/31/2018 at 13:22
--- NOTE | 2018-07-31 13:26 | ED_ITS ---
HPI - Back Pain/Injury General Chief Complaint: Back Pain/Injury Stated Complaint: BACK PAIN MOVING TOWARDS RIBS Time Seen by Provider: 07/31/18 10:50 Source: patient and family Mode of arrival: ambulatory Limitations: no limitations History of Present Illness HPI Narrative: 47-year-old female presents with her for evaluation of ongoing right-sided upper back pain that has been present for many months. She had initially been treated for pleurisy a few times and without resolution she was eventually referred to a pain physician. This physician ordered an MRI and noted some abnormalities in her thoracic region which prompted an outpatient routine referral to [facility]rology at [facility]. The appointment is on . She denies any numbness, tingling or weakness. Her pain had improved a bit after some hydrocodone but is now keeping her awake at night. She denies any chest pain or shortness of breath. She denies nausea, vomiting or diarrhea. She denies abdominal pain. Her pain is worse when she moves and improves with rest MD Complaint: back pain Onset (ago): minute(s) Duration: constant Similar Symptoms Previously: Yes Location: thoracic spine and right upper back Severity: moderate Quality: sharp and stabbing Radiation: none Relieving factors: immobilization Exacerbating factors: movement Treatments prior to arrival: prescription analgesics Related Data Home Medications Medication Instructions Recorded Confirmed Vitamin B-12 1 tab PO DAILY 07/24/18 07/31/18 bupropion HCl 450 mg PO DAILY 07/24/18 07/31/18 calcium carbonate-vitamin D3 1 cap PO DAILY 07/24/18 07/31/18 [Calcium 600 + D(3)] drospirenone-ethinyl estradiol 1 tab PO QPM 07/24/18 07/31/18 [JORDAN (28)] guanfacine 1 mg PO BID 07/24/18 07/31/18 meloxicam 15 mg PO QPM 07/24/18 07/31/18 methotrexate sodium 25 mg PO SA 07/24/18 07/31/18 gabapentin 1 cap PO TID 07/31/18 07/31/18 Previous Rx's Medication Instructions Recorded ondansetron [Zofran ODT] 4 mg PO Q6H PRN #14 tab 07/31/18 oxycodone 5 mg PO Q4-6H PRN #20 tab 07/31/18 Allergies Allergy/AdvReac Type Severity Reaction Status Date / Time amoxicillin Allergy Unknown HIVES Verified 07/31/18 10:53 clavulanic acid Allergy Unknown STOMACH Verified 07/31/18 10:53 erythromycin base Allergy Unknown STOMACH Verified 07/31/18 10:53 PROBLEMS bacitracin Allergy Verified 07/31/18 10:53 [From Neosporin ([id number])] fluoxetine Allergy Verified 07/31/18 10:53 neomycin Allergy Verified 07/31/18 10:53 [From Neosporin ([id number])] polymyxin B Allergy Verified 07/31/18 10:53 [From Neosporin ([id number])] Review of Systems Review of Systems All systems reviewed & are unremarkable except as noted in HPI and below Constitutional Denies chills, Denies fever(s), Denies lethargy and Denies weakness Eyes Denies change in vision, Denies eye discharge, Denies irritation and Denies loss of vision ENT Ears, Nose, Mouth, and Throat: Denies change in voice, Denies neck pain and Denies sore throat Cardiovascular Denies chest pain, Denies irregular heart rhythm, Denies lightheadedness, Denies palpitations, Denies dyspnea, Denies dyspnea on exertion and Denies orthopnea Respiratory Denies cough, Denies dyspnea, Denies dyspnea on exertion and Denies wheezing Gastrointestinal Gastrointestinal: Denies abdominal pain, Denies change in bowel habits, Denies diarrhea, Denies nausea and Denies vomiting Genitourinary Denies hematuria, Denies flank pain, Denies urinary incontinence and Denies urinary urgency Musculoskeletal Reports back pain, Reports limited range of motion and Denies neck pain Integumentary/Breasts Denies pruritus, Denies erythema, Denies rash and Denies wounds Neurologic Denies confusion, Denies loss of vision and Denies weakness Psychiatric Denies anxiety, Denies confusion, Denies depression, Denies homicidal ideation and Denies suicidal ideation Endocrine Denies palpitations Hematologic/Lymphatic Denies easy bruising Allergic/Immunologic Denies wheezing PFSH Medical History Chronic thoracic back pain (Chronic) Depression (Chronic) Rheumatoid arthritis (Chronic) Pleurisy without effusion (Resolved) Social History Smoking Status: Never smoker alcohol intake: never substance use type: does not use Exam Narrative Exam Narrative: 47F laying on her side, obviously in pain Initial Vital Signs Initial Vital Signs: Vital Signs Temperature 97.9 F 07/31/18 10:53 Pulse Rate 118 H 07/31/18 10:53 Respiratory Rate 18 07/31/18 10:53 Pulse Oximetry 93 07/31/18 10:53 Const General: cooperative, well developed and in distress Nutritional Appearance: well nourished Orientation: alert, awake, oriented x3 and not confused [facility] [place] Head: normocephalic and atraumatic Ears: external ears normal and TM's normal bilaterally Nose: external nose normal and No nasal discharge Face and sinus: sinuses nontender, face symmetric, no sinus tenderness and No dry mucous membranes Mouth: oral mucosae normal and moist mucous membranes Teeth and gingiva: dentition normal Throat: tonsils normal and uvula midline Neck Neck: normal visual inspection, trachea midline, No lymphadenopathy, No midline deformity and No JVD Lymphatic: No lymphedema Resp Effort & Inspection: normal respiratory effort, able to speak in complete sentences, no respiratory distress and no use of accessory muscles Auscultation: clear to auscultation bilaterally, no rales, no rhonchi and no wheezes GI Inspection: non-distended Palpation: soft, no hepatosplenomegaly, No guarding, No pulsatile mass and tender Auscultation: normal bowel sounds Back/Spine/Pelvis Thoracic/Lumbar Spine: thoracic and lumbar spine normal to inspection Skin General: no rashes or lesions noted, No jaundice and No petechiae Other: No signs of shingles Neuro General: alert, oriented x3, gait normal and no focal motor deficits Speech: speech normal Extrem General: full ROM, no clubbing, cyanosis or edema, no pedal edema and no calf tenderness Course Orders Ordered: Discontinued Medications Hydromorphone HCl (Dilaudid) 1 mg SUBCUT Q4H PRN PRN Reason: Pain, Severe (7-10) Last Admin: 07/31/18 16:37 Dose: 1 mg Admin: 07/31/18 12:00 Dose: 1 mg Sodium Chloride (Normal Saline 0.9%) 1,000 mls @ 150 mls/hr IV CONT DEVENDRA Last Infusion: 07/31/18 16:37 Dose: 0 mls/hr Admin: 07/31/18 15:16 Dose: 150 mls/hr Reevaluation(s) Reevaluation #1: Spoke with the patient's neurosurgeon, will see her on and he recommends CT scan of the entire spine to rule out Arnold-Chiari , provided there is no abnormal finding on CT she can be discharged on pain control with follow-up as planned Reevaluation #2: Ultrasound ordered given tenderness in epigastrium and right upper quadrant pain that had not previously been recognized. This could perhaps be the cause of her ongoing pain Vital Signs - 8 hr 07/31/18 10:53 07/31/18 11:44 07/31/18 12:10 Temperature 97.9 F Pulse Rate 118 H 102 H 105 H Respiratory Rate 18 20 17 Blood Pressure [Left Arm] 115/65 106/71 Pulse Oximetry 93 99 100 07/31/18 12:54 07/31/18 13:13 07/31/18 13:55 Temperature Pulse Rate 104 H 89 96 H Respiratory Rate 21 28 H 18 Blood Pressure [Left Arm] 121/67 123/69 121/72 Pulse Oximetry 100 98 100 07/31/18 14:09 07/31/18 15:04 07/31/18 15:38 Temperature Pulse Rate 101 H 103 H 101 H Respiratory Rate 15 15 13 Blood Pressure [Left Arm] 126/73 111/76 118/61 Pulse Oximetry 94 97 100 07/31/18 16:12 Temperature Pulse Rate 93 H Respiratory Rate 14 Blood Pressure [Left Arm] 119/62 Pulse Oximetry 100 MDM - Back Pain/Injury Differential Diagnosis Differential diagnosis: Likely lumbar radiculopathy, sciatica, strain of lumbar region, renal colic and pyelonephritis Lab Data Attestation: I reviewed the patient's lab results. Result diagrams: 07/31/18 15:05 07/31/18 15:05 Lab Results 07/31/18 07/31/18 Range/Units 15:05 15:05 WBC 11.3 H (4.5-11.0) X10^3/uL RBC 4.05 (4.0-5.2) X10^6/uL Hgb 12.1 (12.0-16.0) g/dL Hct 36.1 (36-46) % MCV 89.1 (80-100) fL MCH 29.9 (26-34) PG MCHC 33.5 (30-36) % RDW 13.9 (11.6-14.8) % Plt Count 368 (150-400) X10^3/uL Neut % (Auto) 83.6 H (50-75) % Lymph % (Auto) 9.1 L (25-40) % Spalding % (Auto) 4.5 (3-14) % Eos % (Auto) 2.2 (2-4) % Baso % (Auto) 0.6 (0-2) % Neut # (Auto) 9400 H (5110-1847) /uL Sodium 139 (137-145) mmol/L Potassium 4.0 (3.4-5.1) mmol/L Chloride 102 (98-107) mmol/L Carbon Dioxide 27 (22-32) mmol/L BUN 13 (7-17) mg/dL Creatinine 0.90 (0.52-1.04) mg/dL Estimated GFR > 60.0 (>60) mL/min BUN/Creatinine Ratio 14.4 (6-22) Glucose 145 H (70-100) mg/dL Calcium 9.2 (8.4-10.2) mg/dL Total Bilirubin 0.6 (0.2-1.3) mg/dL AST 17 (14-36) IU/L ALT 18 (9-52) IU/L Alkaline Phosphatase 90 (38-126) U/L Total Protein 7.3 (6.3-8.2) g/dL Albumin 4.1 (3.5-5.0) g/dL Globulin 3.2 (1.7-4.1) g/dL Albumin/Globulin Ratio 1.3 (1.0-2.8) Lipase 27 (23-300) U/L Imaging Data CT scan - head: Radiologist's impression: PROCEDURE: CT HEAD/BRAIN WO CON INDICATIONS: request from [facility]. Severe, back, rib pain TECHNIQUE: Noncontrast 4.5 mm thick angled axial sections acquired from the foramen magnum to the vertex, with coronal and sagittal reformats. For radiation dose reduction, the following was used: automated exposure control, adjustment of mA and/or kV according to patient size. COMPARISON: None. FINDINGS: Image quality: Excellent. CSF spaces: Basal cisterns are patent. No extra-axial fluid collections. Ventricles are normal in size and shape. Brain: No midline shift. No intracranial masses or hemorrhage. Keita-white matter interface is normal. Skull and face: Calvarium and visualized facial bones are intact, without suspicious lesions. Sinuses: Visualized sinuses and mastoids are clear. IMPRESSION: 1. No acute intracranial abnormalities. Dictated by: Conor Hurst M.D. on 07/31/2018 at 13:01 Transcribed by: HAO on 07/31/2018 at 13:03 PROCEDURE: CT CERVICAL SPINE WO CON INDICATIONS: severe back pain, non traumatic, request from [facility] TECHNIQUE: Noncontrast 3 mm thick sections acquired from the skull base to the T4 level. Sagittal and coronal reformats were then constructed. For radiation dose reduction, the following was used: automated exposure control, adjustment of mA and/or kV according to patient size. COMPARISON: [facility], , MR THORACIC SPINE WO CON, 06/27/2018, 20:17. FINDINGS: Image quality: Excellent. Bones: No fractures or dislocations. There is uxwi-rd-dwugomne degenerative disc disease at C5-C6 with posterior disc bulge and disc osteophyte complex, causing mild central canal stenosis. Visualized superior ribs are intact. Soft tissues: Prevertebral soft tissues are normal in thickness. No paravertebral hematomas. No apical pneumothoraces. IMPRESSION: 1. Mild to moderate degenerative disease at C5-C6. 2. Mild central canal stenosis at C5-C6. 3. If clinical symptoms persist or clinical suspicion for pathology is high, MRI may be helpful for further evaluation. Dictated by: Conor Hurst M.D. on 07/31/2018 at 13:03 Transcribed by: HAO on 07/31/2018 at 13:06 Approved by: Conor Hurst M.D. on 07/31/2018 at 13:11 Patient: Eun Mcdowell R#: [id number] : 1Acct:[id number] Age/Sex: 88 / MDate of Service: 07/31/18 Loc: ED Accession Number: [id number] Procedure: CT head/brain wo con Ordering Provider: Reinier Bose D.O. PROCEDURE: CT HEAD/BRAIN WO CON INDICATIONS: stroke symptoms upon waking. Decreased balance TECHNIQUE: Noncontrast 4.5 mm thick angled axial sections acquired from the foramen magnum to the vertex, with coronal and sagittal reformats. For radiation dose reduction, the following was used: automated exposure control, adjustment of mA and/or kV according to patient size. COMPARISON: [facility], CT, HEAD WITHOUT CONTRAST, 08/06/2017, 13:23. FINDINGS: Image quality: Excellent. CSF spaces: Basal cisterns are patent. No extra-axial fluid collections. The ventricles are symmetric in size and shape. Brain: There is a small infarct in the left occipital lobe, unchanged. No intracranial bleeds or masses. There is cerebral volume loss for age, with resultant ventricular and sulcal prominence. There are periventricular and deep white matter chronic small vessel ischemic changes. There is intracranial internal carotid artery atherosclerosis. Skull and face: Calvarium and visualized facial bones appear intact, without suspicious lesions. Sinuses: Visualized sinuses and mastoids are clear. IMPRESSION: 1. No acute intracranial abnormalities. 2. 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 3. Cerebral volume loss and chronic microvascular ischemic changes. Dictated by: Conor Hurst M.D. on 07/31/2018 at 12:59 Approved by: Conor Hurst M.D. on 07/31/2018 at 13:00 PROCEDURE: CT LUMBAR SPINE WO CON INDICATIONS: severe midback pain, nontraumatic, per [facility] TECHNIQUE: Noncontrast 3 mm thick sections acquired from the T12 level to the sacrum. Sagittal and coronal reformats were constructed. For radiation dose reduction, the following was used: automated exposure control. COMPARISON: [facility], CT, CT THORACIC SPINE WO CON, 07/31/2018, 12:26. [facility], MR, MR THORACIC SPINE WO CON, 06/27/2018, 20:17. FINDINGS: Image quality: Excellent. Bones: There is normal bony alignment. No acute vertebral body compression fractures. No suspicious lytic or blastic bony lesions. Central spinal caliber is of normal overall caliber. No pars defects. Soft tissues: No retroperitoneal masses or hematomas. Visualized aorta is normal in caliber. There are multiple gallstones. Mild right pleural thickening and right basilar atelectasis. IMPRESSION: 1. No acute abnormalities in lumbar spine seen on CT. 2. Cholelithiasis. 3. Mild right pleural thickening and right basilar atelectasis. Dictated by: Conor Hurst M.D. on 07/31/2018 at 13:12 Approved by: Conor Hurst M.D. on 07/31/2018 at 13:15 US - abdomen: Radiologist's impression: [address] [id number] Ultrasound Report Signed Patient: Mendy Briones KMR#: [id number] : 1970Acct:[id number] Age/Sex: 47 / FDate of Service: 07/31/18 Loc: ED Accession Number: [id number] Procedure: US abdomen limited Ordering Provider: Reinier Bose D.O. PROCEDURE: US ABDOMEN LIMITED INDICATIONS: RUQ pain, stones on CT TECHNIQUE: Real-time focused scanning was performed of the right upper quadrant of the abdomen, with image documentation. COMPARISON: [facility], CT, CT LUMBAR SPINE WO CON, 07/31/2018, 12:26. FINDINGS: The liver is normal in size and echogenicity. There is a small echogenic focus identified within the posterior right hepatic lobe near the right kidney, which measures up to 1.6 cm in diameter. No increased vascularity is demonstrated to this structure. No additional liver abnormalities are appreciated. The gallbladder is normal in size without gallbladder wall thickening or pericholecystic fluid. Multiple gallstones are contained within the gallbladder. The patient did not exhibit a positive sonographic Fernandez sign. There is no intrahepatic or extrahepatic biliary dilatation. Common bile duct measures 4 mm in diameter. The imaged portions of the pancreas are unremarkable. The right kidney measures approximately 9.5 cm in length. The abdominal aorta and inferior vena cava were not imaged. IMPRESSION: 1. Extensive cholelithiasis. No convincing sonographic findings of acute cholecystitis. 2. Small hemangioma versus focal area of fatty infiltration involving the right hepatic lobe. A dedicated nonemergent MRI with contrast of the liver is recommended for better interpretation. Dictated by: Romain Urbina M.D. on 07/31/2018 at 14:44 Approved by: Romain Urbina M.D. on 07/31/2018 at 14:46 MDM Narrative Medical decision making narrative: Patient presents with this pain for quite some time and states that is essentially the same as it had been. Her neurosurgeon doubts the abnormal findings on the MRI are what are causing her pain. She does have gallstones noted on imaging but there are no findings consistent with cholecystitis and the patient has normal labs suggesting this is not likely acute cholecystitis. Discharge Plan Departure Patient Disposition: Home Clinical Impression: Acute flank pain Discharge Date/Time: 07/31/18 17:14 Interventions: ED Discharge Assessment Last Done: 07/31/18 17:13 Instructions: DI for Flank Pain Activity Restrictions/Additional Instructions: *You have been diagnosed with [right flank pain, cholelithiasis ] *What to do: *Take medications as directed *Follow up with your primary care provider in 2-3 days, call for an appointment. Let them know you were seen in the Emergency Department and that we ask that you be seen in follow up *Return to ER if you should have any new, worsening or concerning symptoms , such as fever over 101 F, persistent vomiting, yellowing of her skin, or neurologic symptoms such as numbness, tingling or weakness Prescriptions: New oxycodone 5 mg tablet 5 mg PO Q4-6H PRN (Reason: pain) Qty: 20 RF: 0 ondansetron [Zofran ODT] 4 mg tablet,disintegrating 4 mg PO Q6H PRN (Reason: nausea and vomiting) Qty: 14 RF: 0 No Action meloxicam 15 mg tablet 15 mg PO QPM RF: 0 methotrexate sodium 2.5 mg tablet 25 mg PO SA RF: 0 guanfacine 1 mg tablet 1 mg PO BID RF: 0 bupropion HCl 150 mg tablet extended release 24 hr 450 mg PO DAILY RF: 0 drospirenone-ethinyl estradiol [JORDAN (28)] 3-0.02 mg tablet 1 tab PO QPM RF: 0 calcium carbonate-vitamin D3 [Calcium 600 + D(3)] 600 mg calcium- 200 unit Capsule 1 cap PO DAILY RF: 0 Vitamin B-12 1 tab PO DAILY RF: 0 gabapentin 100 mg capsule 1 cap PO TID RF: 0 Referrals: Alison Bird MD [Primary Care Provider] - Afshin Lainez MD [Physician] -
--- NOTE | 2018-07-31 14:15 | DI.US.S_ITS ---
PROCEDURE: US ABDOMEN LIMITED INDICATIONS: RUQ pain, stones on CT TECHNIQUE: Real-time focused scanning was performed of the right upper quadrant of the abdomen, with image documentation. COMPARISON: [facility], CT, CT LUMBAR SPINE WO [facility], 07/31/2018, 12:26. FINDINGS: The liver is normal in size and echogenicity. There is a small echogenic focus identified within the posterior right hepatic lobe near the right kidney, which measures up to 1.6 cm in diameter. No increased vascularity is demonstrated to this structure. No additional liver abnormalities are appreciated. The gallbladder is normal in size without gallbladder wall thickening or pericholecystic fluid. Multiple gallstones are contained within the gallbladder. The patient did not exhibit a positive sonographic Fernandez sign. There is no intrahepatic or extrahepatic biliary dilatation. Common bile duct measures 4 mm in diameter. The imaged portions of the pancreas are unremarkable. The right kidney measures approximately 9.5 cm in length. The abdominal aorta and inferior vena cava were not imaged. IMPRESSION: 1. Extensive cholelithiasis. No convincing sonographic findings of acute cholecystitis. 2. Small hemangioma versus focal area of fatty infiltration involving the right hepatic lobe. A dedicated nonemergent MRI with contrast of the liver is recommended for better interpretation. Dictated by: Romain Urbina M.D. on 07/31/2018 at 14:44 Approved by: Romain Urbina M.D. on 07/31/2018 at 14:46
[2018-07-31] MEDS: SODIUM CHLORIDE 0.9% 1,000 ML 150 ML IV (15:16)
[2018-07-31 15:21] LABS: Add Manual Diff / Slide Review NO; Basophils Percent Auto 0.6 % (0-2); Eosinophils Percent Auto 2.2 % (2-4); Hematocrit 36.1 % (36-46); Hemoglobin 12.1 g/dL (12.0-16.0); Lymphocytes Percent Auto 9.1 % (25-40); Mean Corpuscular HGB Conc 33.5 % (30-36); Mean Corpuscular Hemoglobin 29.9 PG (26-34); Mean Corpuscular Volume 89.1 fL (80-100); Monocytes Percent Auto 4.5 % (3-14); Neutrophils Absolute Auto 9400 /uL (3000-5900); Neutrophils Percent Auto 83.6 % (50-75); Platelet Count 368 X10^3/uL (150-400); Red Blood Cell Count 4.05 X10^6/uL (4.0-5.2); Red Cell Distribution Width 13.9 % (11.6-14.8); White Blood Cell Count 11.3 X10^3/uL (4.5-11.0)
[2018-07-31 15:35] LABS: Alanine Aminotransferase 18 IU/L (9-52); Albumin 4.1 g/dL (3.5-5.0); Albumin Globulin Ratio 1.3 (1.0-2.8); Alkaline Phosphatase 90 U/L (38-126); Aspartate Aminotransferase 17 IU/L (14-36); BUN Creatinine Ratio 14.4 (6-22); Bilirubin Total 0.6 mg/dL (0.2-1.3); Blood Urea Nitrogen 13 mg/dL (7-17); Calcium 9.2 mg/dL (8.4-10.2); Carbon Dioxide 27 mmol/L (22-32); Chloride 102 mmol/L (98-107); Estimated Glomerular Filt Rate > 60.0 mL/min (>60); Globulin 3.2 g/dL (1.7-4.1); Glucose 145 mg/dL (70-100); HEMOLYSIS < 15 (0-50); Lipase 27 U/L (23-300); Sodium 139 mmol/L (137-145); Total Protein 7.3 g/dL (6.3-8.2)
== END 2018-07-31 17:14 | disposition home or self-care (01) ==
PROVIDERS: Emergency Provider Emergency Medicine; Family Provider Family Medicine; PCP Family Medicine
DX: R10.9 Unspecified abdominal pain (principal)
CPT/HCPCS: 36591; 70450; 72125; 72128; 72131; 76705; 80053; 83690; 85025; 96360; 99284; J1170

== ENCOUNTER 2019-03-05 14:39 | Emergency (ER) | payer OTHER, SELFPAY ==
[2019-03-05 14:45] VITALS: BP 127/64; PULSE 115; RESP 20; TEMP 36.6; O2SAT 97
--- NOTE | 2019-03-05 14:53 | ED.ABDPAIN ---
HPI - Abdominal Pain <JOYA Ahuja-BC - Last Filed: 03/05/19 18:58> General Chief Complaint: Abdominal Pain Stated Complaint: Side pain,radiating to shoulder Time Seen by Provider: 03/05/19 14:51 Source: patient and family Mode of arrival: ambulatory Limitations: no limitations History of Present Illness HPI narrative: The patient is a 48-year-old female history of pleurisy who presents with her for chief complaint of right upper quadrant pain that started at 10:00 a.m. this morning. She states she has a history of ?gallbladder issues? that she has a referral to a surgeon. She denies any fever nausea vomiting or diarrhea. She states that she was worried about her gallbladder. She denies any dysuria urgency or frequency. She states that her pain is on her right upper quadrant or left upper quadrant. It radiates from her right upper quadrant around to her flank. Related Data Home Medications Medication Instructions Recorded Confirmed Vitamin B-12 1 tab PO DAILY 07/24/18 03/05/19 bupropion HCl 450 mg PO DAILY 07/24/18 03/05/19 guanfacine 1 mg PO QAM 07/24/18 03/05/19 meloxicam 15 mg PO QPM 07/24/18 03/05/19 Probiotic 2 tab PO DAILY 03/05/19 03/05/19 calcium carbonate-vitamin D3 2 tab PO DAILY 03/05/19 03/05/19 [Calcium 500 + D] drospirenone-ethinyl estradiol 1 tab PO QPM 03/05/19 03/05/19 [JORDAN (28)] folic acid 0.8 mg PO DAILY 03/05/19 03/05/19 guanfacine 2 mg PO BEDTIME 03/05/19 03/05/19 methotrexate sodium See Rx Instructions .ROUTE .COMPLEX 03/05/19 03/05/19 Previous Rx's Medication Instructions Recorded ciprofloxacin HCl [Cipro] 500 mg PO BID #20 tab 03/05/19 ondansetron 4 mg PO TID-QID PRN #30 tab 03/05/19 oxycodone-acetaminophen [Percocet] 1 tab PO Q4-6H PRN #20 tab 03/05/19 Allergies Allergy/AdvReac Type Severity Reaction Status Date / Time amoxicillin Allergy Unknown HIVES Verified 07/31/18 10:53 clavulanic acid Allergy Unknown STOMACH Verified 07/31/18 10:53 erythromycin base Allergy Unknown STOMACH Verified 07/31/18 10:53 PROBLEMS bacitracin Allergy Verified 07/31/18 10:53 [From Neosporin ([id number])] fluoxetine Allergy Verified 07/31/18 10:53 neomycin Allergy Verified 07/31/18 10:53 [From Neosporin ([id number])] polymyxin B Allergy Verified 07/31/18 10:53 [From Neosporin ([id number])] Review of Systems <PHYLICIA Ahuja - Last Filed: 03/05/19 18:58> Review of Systems GENERAL: Denies chills, fatigue, malaise, fever, sweats. HEENT: Denies sinus pain, ear pain, sore throat, difficulty swallowing, dizziness. RESPIRATORY: Denies dyspnea, cough, wheezing, hemoptysis, sputum. CARDIOVASCULAR: Denies chest pain, palpitations, orthopnea, edema, GASTROINTESTINAL: See HPI : Denies dysuria, frequency, incontinence, hematuria, urinary retention. MUSCULOSKELETAL: denies weakness, joint pain, or bony pain SKIN: Denies rash, skin lesions, or other NEUROLOGIC: Denies weakness, headache, numbness, change in speech, confusion, seizures, incoordination. PSYCHIATRIC: No concerning psychosocial issues. 12 point review of systems is negative except for those stated above PFSH <PHYLICIA Ahuja - Last Filed: 03/05/19 18:58> Medical History Chronic thoracic back pain (Chronic) Depression (Chronic) Rheumatoid arthritis (Chronic) Pleurisy without effusion (Resolved) Social History Smoking Status: Never smoker alcohol intake: never substance use type: does not use Social History Smoking Status: Never smoker alcohol intake: never substance use type: does not use Exam <PHYLICIA Ahuja - Last Filed: 03/05/19 18:58> Narrative Exam Narrative: GENERAL: This is a well-nourished, well-developed patient, appears nervous HEAD: Atraumatic. Normocephalic. No temporal or scalp tenderness. EYES: Pupils equal round and reactive. Extraocular motions intact. No scleral icterus. No injection or drainage. ENT: Nose without bleeding, purulent drainage or septal hematoma. Throat without erythema, tonsillar hypertrophy or exudate. Uvula midline. Airway patent. NECK: Trachea midline. No JVD or lymphadenopathy. Supple, nontender, no meningeal signs. CARDIOVASCULAR: Regular rate and rhythm without murmurs, gallops, or rubs. RESPIRATORY: Clear to auscultation. Breath sounds equal bilaterally. No wheezes, rales, or rhonchi. No cough. No increased respiratory effort. GASTROINTESTINAL: Abdomen soft, tenderness to right upper quadrant palpation, nondistended. No hepato-splenomegaly, or palpable masses. No guarding. active bowel sounds. positive Fernandez sign. EXTREMITIES: No clubbing, cyanosis, or edema. No joint tenderness, effusion, or edema noted. BACK: Nontender without deformity or crepitance. No flank tenderness. NEURO: AOx3. SKIN: No rash or erythema. Initial Vital Signs Initial Vital Signs: Vital Signs Temperature 97.8 F 03/05/19 14:45 Pulse Rate 115 H 03/05/19 14:45 Respiratory Rate 20 03/05/19 14:45 Blood Pressure 127/64 03/05/19 14:45 Pulse Oximetry 97 03/05/19 14:45 <Karissa Summers DO - Last Filed: 03/06/19 11:24> Initial Vital Signs Initial Vital Signs: Vital Signs Temperature 97.8 F 03/05/19 14:45 Pulse Rate 115 H 03/05/19 14:45 Respiratory Rate 20 03/05/19 14:45 Blood Pressure 127/64 03/05/19 14:45 Pulse Oximetry 97 03/05/19 14:45 Course <PHYLICIA Ahuja - Last Filed: 03/05/19 18:58> Orders Ordered: Discontinued Medications Sodium Chloride (Normal Saline 0.9%) 1,000 mls @ 1,000 mls/hr IV BOLUS ONE Stop: 03/05/19 16:07 Last Admin: 03/05/19 15:43 Dose: 1,000 mls/hr Morphine Sulfate (Morphine) 2 mg IV NOW ONE Stop: 03/05/19 15:09 Last Admin: 03/05/19 15:42 Dose: 2 mg Morphine Sulfate (Morphine) 4 mg IV NOW ONE Stop: 03/05/19 17:42 Last Admin: 03/05/19 17:54 Dose: 4 mg Ondansetron HCl (Zofran) 4 mg IV NOW ONE Stop: 03/05/19 15:09 Last Admin: 03/05/19 15:43 Dose: 4 mg Ondansetron HCl (Zofran Odt) 4 mg SL NOW ONE Stop: 03/05/19 16:41 Last Admin: 03/05/19 17:21 Dose: 4 mg Oxycodone/Acetaminophen (Percocet 5/325) 1 tab PO NOW ONE Stop: 03/05/19 16:41 Last Admin: 03/05/19 17:21 Dose: 1 tab Vital Signs - 8 hr 03/05/19 14:45 03/05/19 17:27 03/05/19 18:50 Temperature 97.8 F 97.8 F Pulse Rate 115 H 93 H 78 Respiratory Rate 20 15 16 Blood Pressure 127/64 135/78 Blood Pressure [Right Arm] 119/67 Pulse Oximetry 97 100 98 <Karissa Summers, - Last Filed: 03/06/19 11:24> Orders Ordered: Discontinued Medications Sodium Chloride (Normal Saline 0.9%) 1,000 mls @ 1,000 mls/hr IV BOLUS ONE Stop: 03/05/19 16:07 Last Admin: 03/05/19 15:43 Dose: 1,000 mls/hr Morphine Sulfate (Morphine) 2 mg IV NOW ONE Stop: 03/05/19 15:09 Last Admin: 03/05/19 15:42 Dose: 2 mg Morphine Sulfate (Morphine) 4 mg IV NOW ONE Stop: 03/05/19 17:42 Last Admin: 03/05/19 17:54 Dose: 4 mg Ondansetron HCl (Zofran) 4 mg IV NOW ONE Stop: 03/05/19 15:09 Last Admin: 03/05/19 15:43 Dose: 4 mg Ondansetron HCl (Zofran Odt) 4 mg SL NOW ONE Stop: 03/05/19 16:41 Last Admin: 03/05/19 17:21 Dose: 4 mg Oxycodone/Acetaminophen (Percocet 5/325) 1 tab PO NOW ONE Stop: 03/05/19 16:41 Last Admin: 03/05/19 17:21 Dose: 1 tab Vital Signs - 8 hr 03/05/19 14:45 03/05/19 17:27 03/05/19 18:50 Temperature 97.8 F 97.8 F Pulse Rate 115 H 93 H 78 Respiratory Rate 20 15 16 Blood Pressure 127/64 135/78 Blood Pressure [Right Arm] 119/67 Pulse Oximetry 97 100 98 MDM - Abdominal Pain <LYNETTE Ahuja - Last Filed: 03/05/19 18:58> Lab Data Result diagrams: 03/05/19 15:20 03/05/19 15:20 Lab Results 03/05/19 03/05/19 03/05/19 Range/Units 15:20 15:20 15:20 WBC 9.9 (4.5-11.0) X10^3/uL RBC 3.85 L (4.0-5.2) X10^6/uL Hgb 11.9 L (12.0-16.0) g/dL Hct 35.0 L (36-46) % MCV 90.7 (80-100) fL MCH 30.8 (26-34) PG MCHC 33.9 (30-36) % RDW 13.7 (11.6-14.8) % Plt Count 278 (150-400) X10^3/uL Neut % (Auto) 82.7 H (50-75) % Lymph % (Auto) 10.3 L (25-40) % [place] % (Auto) 5.3 (3-14) % Eos % (Auto) 1.2 L (2-4) % Baso % (Auto) 0.5 (0-2) % Neut # (Auto) 8200 H (8181-3358) /uL Lymph # (Auto) 1000 L (5903-5023) /uL [place] # (Auto) 500 (0-900) /uL Eos # (Auto) 100 (0-450) /uL Baso # (Auto) 100 (0-100) /uL Sodium 137 (137-145) mmol/L Potassium 4.3 (3.4-5.1) mmol/L Chloride 101 (98-107) mmol/L Carbon Dioxide 24 (22-32) mmol/L BUN 16 (7-17) mg/dL Creatinine 1.00 (0.52-1.04) mg/dL Estimated GFR 59.4 L (>60) mL/min BUN/Creatinine Ratio 16.0 (6-22) Glucose 97 (70-100) mg/dL Calcium 9.1 (8.4-10.2) mg/dL Total Bilirubin 1.0 (0.2-1.3) mg/dL AST 31 (14-36) IU/L ALT 18 (9-52) IU/L Alkaline Phosphatase 74 (38-126) U/L Total Protein 7.3 (6.3-8.2) g/dL Albumin 4.2 (3.5-5.0) g/dL Globulin 3.1 (1.7-4.1) g/dL Albumin/Globulin Ratio 1.4 (1.0-2.8) Amylase 63 (30-110) U/L Lipase 47 (23-300) U/L Point of care testing: Point of Care Testing Test Results Negative Urine Dip Bedside Urine Glucose Negative Bedside Urine Bilirubin - Negative Bedside Urine Ketone - Negative Urine Specific [place] 1.010 Bedside Urine Occult Blood +/- Bedside Urine pH 6.0 Bedside Urine Protein - Negative Bedside Urine Urobilinogen - Negative Bedside Urine Nitrite - Negative Bedside Urine Leukocytes + 70 Esterase Imaging Data US - abdomen: Radiologist's impression: [place] [address] Ultrasound Report Signed Patient: Mendy Briones KMR#: [id number] : 1970Acct:[id number] Age/Sex: 48 / FDate of Service: 03/05/19 Loc: ED Accession Number: [id number] Procedure: US abdomen complete Ordering Provider: Josefina Palumbo PROCEDURE: US ABDOMEN LIMITED INDICATIONS: RUQ pain TECHNIQUE: Real-time focused scanning was performed of the abdomen, with image documentation. COMPARISON: [facility], US ABDOMEN LIMITED, 07/31/2018, 14:52. FINDINGS: Liver is normal in size. 2 cm hyperechoic lesion in the right lobe is stable compared to prior examination may represent small hemangioma or fatty infiltration. Local gallstones noted. Gallbladder wall is thickened to 4.0 mm. No pericholecystic fluid. Sonographic Fernandez's sign noted. Biliary tree is nondilated with common bile duct measuring 3.6 mm. Pancreas is sonographically normal. Kidneys are sonographically normal. Abdominal aorta has normal caliber. Intrahepatic IVC is patent. IMPRESSION: Cholelithiasis with gallbladder wall thickening and positive sonographic Fernandez sign concerning for acute cholecystitis. Dictated by: Miesha Cowan MD, PhD on 03/05/2019 at 16:01 Approved by: Miesha Cowan MD, PhD on 03/05/2019 at 16:04 [facility] Narrative Medical decision making narrative: The patient is a 48-year-old female presents with right upper quadrant pain. Given the concern for cholecystitis on ultrasound, I spoke with Dr. Jaime. Given that the patient does not have elevated white blood cell count, he feels as though she is a candidate for outpatient therapy with close follow-up with his office. He recommended Cipro as an antibiotic for her. I spoke with the patient regarding the opportunity for oral treatment at home with careful follow-up, and she elected to pursue this option rather than current admission. The patient was able to tolerate oral nausea and pain medication as well as oral fluids before discharge. I spoke at length with her about strict return precautions to include a fever, inability keep down fluids. Encouraged to follow up with the surgeon as soon as possible as well as her primary care provider. Patient and had no questions or concerns upon discharge. She was given prescription of Zofran, Percocet as well as Cipro. <Karissa Summers, DO - Last Filed: 03/06/19 11:24> Lab Data Lab Results 03/05/19 03/05/19 03/05/19 Range/Units 15:20 15:20 15:20 WBC 9.9 (4.5-11.0) X10^3/uL RBC 3.85 L (4.0-5.2) X10^6/uL Hgb 11.9 L (12.0-16.0) g/dL Hct 35.0 L (36-46) % MCV 90.7 (80-100) fL MCH 30.8 (26-34) PG MCHC 33.9 (30-36) % RDW 13.7 (11.6-14.8) % Plt Count 278 (150-400) X10^3/uL Neut % (Auto) 82.7 H (50-75) % Lymph % (Auto) 10.3 L (25-40) % [place] % (Auto) 5.3 (3-14) % Eos % (Auto) 1.2 L (2-4) % Baso % (Auto) 0.5 (0-2) % Neut # (Auto) 8200 H (6886-8459) /uL Lymph # (Auto) 1000 L (6364-0347) /uL [place] # (Auto) 500 (0-900) /uL Eos # (Auto) 100 (0-450) /uL Baso # (Auto) 100 (0-100) /uL Sodium 137 (137-145) mmol/L Potassium 4.3 (3.4-5.1) mmol/L Chloride 101 (98-107) mmol/L Carbon Dioxide 24 (22-32) mmol/L BUN 16 (7-17) mg/dL Creatinine 1.00 (0.52-1.04) mg/dL Estimated GFR 59.4 L (>60) mL/min BUN/Creatinine Ratio 16.0 (6-22) Glucose 97 (70-100) mg/dL Calcium 9.1 (8.4-10.2) mg/dL Total Bilirubin 1.0 (0.2-1.3) mg/dL AST 31 (14-36) IU/L ALT 18 (9-52) IU/L Alkaline Phosphatase 74 (38-126) U/L Total Protein 7.3 (6.3-8.2) g/dL Albumin 4.2 (3.5-5.0) g/dL Globulin 3.1 (1.7-4.1) g/dL Albumin/Globulin Ratio 1.4 (1.0-2.8) Amylase 63 (30-110) U/L Lipase 47 (23-300) U/L Point of care testing: Point of Care Testing Test Results Negative Urine Dip Bedside Urine Glucose Negative Bedside Urine Bilirubin - Negative Bedside Urine Ketone - Negative Urine Specific [place] 1.010 Bedside Urine Occult Blood +/- Bedside Urine pH 6.0 Bedside Urine Protein - Negative Bedside Urine Urobilinogen - Negative Bedside Urine Nitrite - Negative Bedside Urine Leukocytes + 70 Esterase Discharge Plan Departure Patient Disposition: Home Clinical Impression: Cholecystitis Discharge Date/Time: 03/05/19 18:50 Interventions: ED Discharge Assessment Last Done: 03/05/19 18:50 Instructions: DI for Cholecystitis Activity Restrictions/Additional Instructions: Please follow up with the surgeon's office tomorrow. Please eat clear fluids as the surgeon instructed. I have given you pain and nausea medication. Please come back to the emergency department if you have any concerns such as fever, inability keep down your antibiotics or fluids. I am giving you Cipro twice a day as an antibiotic. Unfortunately this has risk of tendon injury, but is the best antibiotic for the infection you have in your gallbladder. Please follow up with the surgeons as soon as possible. They need to get you in for an appointment before taking out her gallbladder. Please come back to the emergency department if you have any acute concerns such as fever, inability to keep down her medication at home. Prescriptions: New ciprofloxacin HCl [Cipro] 500 mg tablet 500 mg PO BID Qty: 20 RF: 0 oxycodone-acetaminophen [Percocet] 5-325 mg tablet 1 tab PO Q4-6H PRN (Reason: pain) Qty: 20 RF: 0 ondansetron 4 mg tablet,disintegrating 4 mg PO TID-QID PRN (Reason: nausea and vomiting) Qty: 30 RF: 0 No Action methotrexate sodium 2.5 mg tablet See Rx Instructions .ROUTE .COMPLEX RF: 0 guanfacine 1 mg tablet 2 mg PO BEDTIME RF: 0 drospirenone-ethinyl estradiol [JORDAN (28)] 3-0.02 mg tablet 1 tab PO QPM RF: 0 folic acid 800 mcg Tablet 0.8 mg PO DAILY RF: 0 calcium carbonate-vitamin D3 [Calcium 500 + D] 500 mg(1,250mg) -400 unit Tablet,Chewable 2 tab PO DAILY RF: 0 Probiotic 2 tab PO DAILY RF: 0 meloxicam 15 mg tablet 15 mg PO QPM RF: 0 guanfacine 1 mg tablet 1 mg PO QAM RF: 0 bupropion HCl 150 mg tablet extended release 24 hr 450 mg PO DAILY RF: 0 Vitamin B-12 1 tab PO DAILY RF: 0 Referrals: Alison Bird MD [Primary Care Provider] - Nolan Macario MD [Physician] - <Karissa Summers DO - Last Filed: 03/06/19 11:24> Cosign ED Attending Coswenature Attestation: I was immediately available in the department for consultation. Documentation has been reviewed. I agree with assessment and plan.
--- NOTE | 2019-03-05 15:08 | DI.US.S_ITS ---
PROCEDURE: US ABDOMEN LIMITED INDICATIONS: RUQ pain TECHNIQUE: Real-time focused scanning was performed of the abdomen, with image documentation. COMPARISON: [facility], US, US ABDOMEN LIMITED, 07/31/2018, 14:52. FINDINGS: Liver is normal in size. 2 cm hyperechoic lesion in the right lobe is stable compared to prior examination may represent small hemangioma or fatty infiltration. Local gallstones noted. Gallbladder wall is thickened to 4.0 mm. No pericholecystic fluid. Sonographic Fernandez's sign noted. Biliary tree is nondilated with common bile duct measuring 3.6 mm. Pancreas is sonographically normal. Kidneys are sonographically normal. Abdominal aorta has normal caliber. Intrahepatic IVC is patent. IMPRESSION: Cholelithiasis with gallbladder wall thickening and positive sonographic Fernandez sign concerning for acute cholecystitis. Dictated by: Miesha Cowan MD, PhD on 03/05/2019 at 16:01 Approved by: Miesha Cowan MD, PhD on 03/05/2019 at 16:04
[2019-03-05 15:38] LABS: Add Manual Diff / Slide Review NO; Basophils Absolute Auto 100 /uL (0-100); Basophils Percent Auto 0.5 % (0-2); Eosinophils Absolute Auto 100 /uL (0-450); Eosinophils Percent Auto 1.2 % (2-4); Hemoglobin 11.9 g/dL (12.0-16.0); Lymphocytes Absolute Auto 1000 /uL (1100-4500); Lymphocytes Percent Auto 10.3 % (25-40); Mean Corpuscular HGB Conc 33.9 % (30-36); Mean Corpuscular Hemoglobin 30.8 PG (26-34); Mean Corpuscular Volume 90.7 fL (80-100); Monocytes Absolute Auto 500 /uL (0-900); Monocytes Percent Auto 5.3 % (3-14); Neutrophils Absolute Auto 8200 /uL (1500-7000); Neutrophils Percent Auto 82.7 % (50-75); Platelet Count 278 X10^3/uL (150-400); Red Blood Cell Count 3.85 X10^6/uL (4.0-5.2); Red Cell Distribution Width 13.7 % (11.6-14.8); White Blood Cell Count 9.9 X10^3/uL (4.5-11.0)
[2019-03-05] MEDS: MORPHINE 2 MG/ML INJ IV (15:42)
[2019-03-05] MEDS: ONDANSETRON 4 MG/2 ML INJ IV (15:43)
[2019-03-05] MEDS: SODIUM CHLORIDE 0.9% 1,000 ML 1000 ML IV (15:43)
[2019-03-05 15:44] LABS: Alanine Aminotransferase 18 IU/L (9-52); Albumin 4.2 g/dL (3.5-5.0); Albumin Globulin Ratio 1.4 (1.0-2.8); Alkaline Phosphatase 74 U/L (38-126); Aspartate Aminotransferase 31 IU/L (14-36); Blood Urea Nitrogen 16 mg/dL (7-17); Calcium 9.1 mg/dL (8.4-10.2); Carbon Dioxide 24 mmol/L (22-32); Chloride 101 mmol/L (98-107); Estimated Glomerular Filt Rate 59.4 mL/min (>60); Globulin 3.1 g/dL (1.7-4.1); Glucose 97 mg/dL (70-100); Lipase 47 U/L (23-300); Potassium 4.3 mmol/L (3.4-5.1); Sodium 137 mmol/L (137-145); Total Protein 7.3 g/dL (6.3-8.2)
[2019-03-05 15:45] LABS: Amylase 63 U/L (30-110)
[2019-03-05 15:46] LABS: HEMOLYSIS 62 (0-50)
--- NOTE | 2019-03-05 16:10 | ED_ITS ---
HPI - Abdominal Pain <Josefina JOYA Palumbo-BC - Last Filed: 03/05/19 18:58> General Chief Complaint: Abdominal Pain Stated Complaint: Side pain,radiating to shoulder Time Seen by Provider: 03/05/19 14:51 Source: patient and family Mode of arrival: ambulatory Limitations: no limitations History of Present Illness HPI narrative: The patient is a 48-year-old female history of pleurisy who prese nts with her for chief complaint of right upper quadrant pain that started at 10:00 a.m. this morning. She states she has a history of ?gallbladder issues? that she has a referral to a surgeon. She denies any fever nausea vomiting or diarrhea. She states that she was worried about her gal lbladder. She denies any dysuria urgency or frequency. She states that her pain is on her right upper quadrant or left upper quadrant. It radiates from her right upper quadrant around to her flank. Related Data Home Medications Medication Instructions Recorded Confirmed Vitamin B-12 1 tab PO DAILY 07/24/18 03/05/19 bupropion HCl 450 mg PO DAILY 07/24/18 03/05/19 guanfacine 1 mg PO QAM 07/24/18 03/05/19 meloxicam 15 mg PO QPM 07/24/18 03/05/19 Probiotic 2 tab PO DAILY 03/05/19 03/05/19 calcium carbonate-vitamin D3 2 tab PO DAILY 03/05/19 03/05/19 [Calcium 500 + D] drospirenone-ethinyl estradiol 1 tab PO QPM 03/05/19 03/05/19 [JORDAN (28)] folic acid 0.8 mg PO DAILY 03/05/19 03/05/19 guanfacine 2 mg PO BEDTIME 03/05/19 03/05/19 methotrexate sodium See Rx Instructions .ROUTE .COMPLEX 03/05/19 03/05/19 Previous Rx's Medication Instructions Recorded ciprofloxacin HCl [Cipro] 500 mg PO BID #20 tab 03/05/19 ondansetron 4 mg PO TID-QID PRN #30 tab 03/05/19 oxycodone-acetaminophen [Percocet] 1 tab PO Q4-6H PRN #20 tab 03/05/19 Allergies Allergy/AdvReac Type Severity Reaction Status Date / Time amoxicillin Allergy Unknown HIVES Verified 07/31/18 10:53 clavulanic acid Allergy Unknown STOMACH Verified 07/31/18 10:53 erythromycin base Allergy Unknown STOMACH Verified 07/31/18 10:53 PROBLEMS bacitracin Allergy Verified 07/31/18 10:53 [From Neosporin ([id number])] fluoxetine Allergy Verified 07/31/18 10:53 neomycin Allergy Verified 07/31/18 10:53 [From Neosporin ([id number])] polymyxin B Allergy Verified 07/31/18 10:53 [From Neosporin ([id number])] Review of Systems <PHYLICIA Ahuja - Last Filed: 03/05/19 18:58> Review of Systems GENERAL: Denies chills, fatigue, malaise, fever, sweats. HEENT: Denies sinus pain, ear pain, sore throat, difficulty swallowing, dizziness. RESPIRATORY: Denies dyspnea, cough, wheezing, hemoptysis, sputum. CARDIOVASCULAR: Denies chest pain, palpitations, orthopnea, edema, GASTROINTESTINAL: See HPI : Denies dysuria, frequency, incontinence, hematuria, urinary retention. MUSCULOSKELETAL: denies weakness, joint pain, or bony pain SKIN: Denies rash, skin lesions, or other NEUROLOGIC: Denies weakness, headache, numbness, change in speech, confusion, seizures, incoordination. PSYCHIATRIC: No concerning psychosocial issues. 12 point review of systems is negative except for those stated above PFSH <PHYLICIA Ahuja - Last Filed: 03/05/19 18:58> Medical History Chronic thoracic back pain (Chronic) Depression (Chronic) Rheumatoid arthritis (Chronic) Pleurisy without effusion (Resolved) Social History Smoking Status: Never smoker alcohol intake: never substance use type: does not use Social History Smoking Status: Never smoker alcohol intake: never substance use type: does not use Exam <PHYLICIA Ahuja - Last Filed: 03/05/19 18:58> Narrative Exam Narrative: GENERAL: This is a well-nourished, well-developed patient, appears nervous HEAD: Atraumatic. Normocephalic. No temporal or scalp tenderness. EYES: Pupils equal round and reactive. Extraocular motions intact. No scleral icterus. No injection or drainage. ENT: Nose without bleeding, purulent drainage or septal hematoma. Throat without erythema, tonsillar hypertrophy or exudate. Uvula midline. Airway patent. NECK: Trachea midline. No JVD or lymphadenopathy. Supple, nontender, no meningeal signs. CARDIOVASCULAR: Regular rate and rhythm without murmurs, gallops, or rubs. RESPIRATORY: Clear to auscultation. Breath sounds equal bilaterally. No wheezes, rales, or rhonchi. No cough. No increased respiratory effort. GASTROINTESTINAL: Abdomen soft, tenderness to right upper quadrant palpation, nondistended. No hepato-splenomegaly, or palpable masses. No guarding. active bowel sounds. positive Fernandez sign. EXTREMITIES: No clubbing, cyanosis, or edema. No joint tenderness, effusion, or edema noted. BACK: Nontender without deformity or crepitance. No flank tenderness. NEURO: AOx3. SKIN: No rash or erythema. Initial Vital Signs Initial Vital Signs: Vital Signs Temperature 97.8 F 03/05/19 14:45 Pulse Rate 115 H 03/05/19 14:45 Respiratory Rate 20 03/05/19 14:45 Blood Pressure 127/64 03/05/19 14:45 Pulse Oximetry 97 03/05/19 14:45 <Karissa Summers DO - Last Filed: 03/06/19 11:24> Initial Vital Signs Initial Vital Signs: Vital Signs Temperature 97.8 F 03/05/19 14:45 Pulse Rate 115 H 03/05/19 14:45 Respiratory Rate 20 03/05/19 14:45 Blood Pressure 127/64 03/05/19 14:45 Pulse Oximetry 97 03/05/19 14:45 Course <PHYLICIA Ahuja - Last Filed: 03/05/19 18:58> Orders Ordered: Discontinued Medications Sodium Chloride (Normal Saline 0.9%) 1,000 mls @ 1,000 mls/hr IV BOLUS ONE Stop: 03/05/19 16:07 Last Admin: 03/05/19 15:43 Dose: 1,000 mls/hr Morphine Sulfate (Morphine) 2 mg IV NOW ONE Stop: 03/05/19 15:09 Last Admin: 03/05/19 15:42 Dose: 2 mg Morphine Sulfate (Morphine) 4 mg IV NOW ONE Stop: 03/05/19 17:42 Last Admin: 03/05/19 17:54 Dose: 4 mg Ondansetron HCl (Zofran) 4 mg IV NOW ONE Stop: 03/05/19 15:09 Last Admin: 03/05/19 15:43 Dose: 4 mg Ondansetron HCl (Zofran Odt) 4 mg SL NOW ONE Stop: 03/05/19 16:41 Last Admin: 03/05/19 17:21 Dose: 4 mg Oxycodone/Acetaminophen (Percocet 5/325) 1 tab PO NOW ONE Stop: 03/05/19 16:41 Last Admin: 03/05/19 17:21 Dose: 1 tab Vital Signs - 8 hr 03/05/19 14:45 03/05/19 17:27 03/05/19 18:50 Temperature 97.8 F 97.8 F Pulse Rate 115 H 93 H 78 Respiratory Rate 20 15 16 Blood Pressure 127/64 135/78 Blood Pressure [Right Arm] 119/67 Pulse Oximetry 97 100 98 <Karissa Summers, - Last Filed: 03/06/19 11:24> Orders Ordered: Discontinued Medications Sodium Chloride (Normal Saline 0.9%) 1,000 mls @ 1,000 mls/hr IV BOLUS ONE Stop: 03/05/19 16:07 Last Admin: 03/05/19 15:43 Dose: 1,000 mls/hr Morphine Sulfate (Morphine) 2 mg IV NOW ONE Stop: 03/05/19 15:09 Last Admin: 03/05/19 15:42 Dose: 2 mg Morphine Sulfate (Morphine) 4 mg IV NOW ONE Stop: 03/05/19 17:42 Last Admin: 03/05/19 17:54 Dose: 4 mg Ondansetron HCl (Zofran) 4 mg IV NOW ONE Stop: 03/05/19 15:09 Last Admin: 03/05/19 15:43 Dose: 4 mg Ondansetron HCl (Zofran Odt) 4 mg SL NOW ONE Stop: 03/05/19 16:41 Last Admin: 03/05/19 17:21 Dose: 4 mg Oxycodone/Acetaminophen (Percocet 5/325) 1 tab PO NOW ONE Stop: 03/05/19 16:41 Last Admin: 03/05/19 17:21 Dose: 1 tab Vital Signs - 8 hr 03/05/19 14:45 03/05/19 17:27 03/05/19 18:50 Temperature 97.8 F 97.8 F Pulse Rate 115 H 93 H 78 Respiratory Rate 20 15 16 Blood Pressure 127/64 135/78 Blood Pressure [Right Arm] 119/67 Pulse Oximetry 97 100 98 MDM - Abdominal Pain <JOYA Ahuja- - Last Filed: 03/05/19 18:58> Lab Data Result diagrams: 03/05/19 15:20 03/05/19 15:20 Lab Results 03/05/19 03/05/19 03/05/19 Range/Units 15:20 15:20 15:20 WBC 9.9 (4.5-11.0) X10^3/uL RBC 3.85 L (4.0-5.2) X10^6/uL Hgb 11.9 L (12.0-16.0) g/dL Hct 35.0 L (36-46) % MCV 90.7 (80-100) fL MCH 30.8 (26-34) PG MCHC 33.9 (30-36) % RDW 13.7 (11.6-14.8) % Plt Count 278 (150-400) X10^3/uL Neut % (Auto) 82.7 H (50-75) % Lymph % (Auto) 10.3 L (25-40) % [place] % (Auto) 5.3 (3-14) % Eos % (Auto) 1.2 L (2-4) % Baso % (Auto) 0.5 (0-2) % Neut # (Auto) 8200 H (5910-7529) /uL Lymph # (Auto) 1000 L (0837-8820) /uL [place] # (Auto) 500 (0-900) /uL Eos # (Auto) 100 (0-450) /uL Baso # (Auto) 100 (0-100) /uL Sodium 137 (137-145) mmol/L Potassium 4.3 (3.4-5.1) mmol/L Chloride 101 (98-107) mmol/L Carbon Dioxide 24 (22-32) mmol/L BUN 16 (7-17) mg/dL Creatinine 1.00 (0.52-1.04) mg/dL Estimated GFR 59.4 L (>60) mL/min BUN/Creatinine Ratio 16.0 (6-22) Glucose 97 (70-100) mg/dL Calcium 9.1 (8.4-10.2) mg/dL Total Bilirubin 1.0 (0.2-1.3) mg/dL AST 31 (14-36) IU/L ALT 18 (9-52) IU/L Alkaline Phosphatase 74 (38-126) U/L Total Protein 7.3 (6.3-8.2) g/dL Albumin 4.2 (3.5-5.0) g/dL Globulin 3.1 (1.7-4.1) g/dL Albumin/Globulin Ratio 1.4 (1.0-2.8) Amylase 63 (30-110) U/L Lipase 47 (23-300) U/L Point of care testing: Point of Care Testing Test Results Negative Urine Dip Bedside Urine Glucose Negative Bedside Urine Bilirubin - Negative Bedside Urine Ketone - Negative Urine Specific Trinity 1.010 Bedside Urine Occult Blood +/- Bedside Urine pH 6.0 Bedside Urine Protein - Negative Bedside Urine Urobilinogen - Negative Bedside Urine Nitrite - Negative Bedside Urine Leukocytes + 70 Esterase Imaging Data US - abdomen: Radiologist's impression: [place] [address] Ultrasound Report Signed Patient: Mendy Briones KMR#: [id number] : 1970Acct:[id number] Age/Sex: 48 / FDate of Service: 03/05/19 Loc: ED Accession Number: [id number] Procedure: US abdomen complete Ordering Provider: Josefina Palumbo PROCEDURE: US ABDOMEN LIMITED INDICATIONS: RUQ pain TECHNIQUE: Real-time focused scanning was performed of the abdomen, with image documentation. COMPARISON: [facility], , US ABDOMEN LIMITED, 07/31/2018, 14:52. FINDINGS: Liver is normal in size. 2 cm hyperechoic lesion in the right lobe is stable compared to prior examination may represent small hemangioma or fatty infiltration. Local gallstones noted. Gallbladder wall is thickened to 4.0 mm. No pericholecystic fluid. Sonographic Fernandez's sign noted. Biliary tree is nondilated with common bile duct measuring 3.6 mm. Pancreas is sonographically normal. Kidneys are sonographically normal. Abdominal aorta has normal caliber. Intrahepatic IVC is patent. IMPRESSION: Cholelithiasis with gallbladder wall thickening and positive sonographic Fernandez sign concerning for acute cholecystitis. Dictated by: Miesha Cowan MD, PhD on 03/05/2019 at 16:01 Approved by: Miesha Cowan MD, PhD on 03/05/2019 at 16:04 [facility] Narrative Medical decision making narrative: The patient is a 48-year-old female presents with right upper quadrant pain. Given the concern for cholecystitis on ult rasound, I spoke with Dr. Jaime. Given that the patient does not have elevated white blood cell count, he feels as though she is a candidate for outpatient therapy with close follow-up with his office. He recommended Cipro as an antibiotic for her. I spoke with the patient regarding the opportunity for oral treatment at home with careful follow-up, and she elected to pursue this option rather than current admission. The patient was able to tolerate oral nausea and pain medication as well as oral fluids before discharge. I spoke at length with her about strict return precautions to include a fever, inability keep down fluids. Encouraged to follow up with the surgeon as soon as possible as well as her primary care provider. Patient and had no questions or concerns upon discharge. She was given prescription of Zofran, Percocet as well as Cipro. <Karissa Summers, DO - Last Filed: 03/06/19 11:24> Lab Data Lab Results 03/05/19 03/05/19 03/05/19 Range/Units 15:20 15:20 15:20 WBC 9.9 (4.5-11.0) X10^3/uL RBC 3.85 L (4.0-5.2) X10^6/uL Hgb 11.9 L (12.0-16.0) g/dL Hct 35.0 L (36-46) % MCV 90.7 (80-100) fL MCH 30.8 (26-34) PG MCHC 33.9 (30-36) % RDW 13.7 (11.6-14.8) % Plt Count 278 (150-400) X10^3/uL Neut % (Auto) 82.7 H (50-75) % Lymph % (Auto) 10.3 L (25-40) % [place] % (Auto) 5.3 (3-14) % Eos % (Auto) 1.2 L (2-4) % Baso % (Auto) 0.5 (0-2) % Neut # (Auto) 8200 H (6189-7913) /uL Lymph # (Auto) 1000 L (1636-5952) /uL [place] # (Auto) 500 (0-900) /uL Eos # (Auto) 100 (0-450) /uL Baso # (Auto) 100 (0-100) /uL Sodium 137 (137-145) mmol/L Potassium 4.3 (3.4-5.1) mmol/L Chloride 101 (98-107) mmol/L Carbon Dioxide 24 (22-32) mmol/L BUN 16 (7-17) mg/dL Creatinine 1.00 (0.52-1.04) mg/dL Estimated GFR 59.4 L (>60) mL/min BUN/Creatinine Ratio 16.0 (6-22) Glucose 97 (70-100) mg/dL Calcium 9.1 (8.4-10.2) mg/dL Total Bilirubin 1.0 (0.2-1.3) mg/dL AST 31 (14-36) IU/L ALT 18 (9-52) IU/L Alkaline Phosphatase 74 (38-126) U/L Total Protein 7.3 (6.3-8.2) g/dL Albumin 4.2 (3.5-5.0) g/dL Globulin 3.1 (1.7-4.1) g/dL Albumin/Globulin Ratio 1.4 (1.0-2.8) Amylase 63 (30-110) U/L Lipase 47 (23-300) U/L Point of care testing: Point of Care Testing Test Results Negative Urine Dip Bedside Urine Glucose Negative Bedside Urine Bilirubin - Negative Bedside Urine Ketone - Negative Urine Specific [place] 1.010 Bedside Urine Occult Blood +/- Bedside Urine pH 6.0 Bedside Urine Protein - Negative Bedside Urine Urobilinogen - Negative Bedside Urine Nitrite - Negative Bedside Urine Leukocytes + 70 Esterase Discharge Plan Departure Patient Disposition: Home Clinical Impression: Cholecystitis Discharge Date/Time: 03/05/19 18:50 Interventions: ED Discharge Assessment Last Done: 03/05/19 18:50 Instructions: DI for Cholecystitis Activity Restrictions/Additional Instructions: Please follow up with the surgeon's office tomorrow. Please eat clear fluids as the surgeon instructed. I have given you pain and nausea medication. Please come back to the emergency department if you have any concerns such as fever, inability keep down your antibiotics or fluids. I am giving you Cipro twice a day as an antibiotic. Unfortunately this has risk of tendon injury, but is the best antibiotic for the infection you have in your gallbladder. Please follow up with the surgeons as soon as possible. They need to get you in for an appointment before taking out her gallbladder. Please come back to the emergency department if you have any acute concerns such as fever, inability to keep down her medication at home. Prescriptions: New ciprofloxacin HCl [Cipro] 500 mg tablet 500 mg PO BID Qty: 20 RF: 0 oxycodone-acetaminophen [Percocet] 5-325 mg tablet 1 tab PO Q4-6H PRN (Reason: pain) Qty: 20 RF: 0 ondansetron 4 mg tablet,disintegrating 4 mg PO TID-QID PRN (Reason: nausea and vomiting) Qty: 30 RF: 0 No Action methotrexate sodium 2.5 mg tablet See Rx Instructions .ROUTE .COMPLEX RF: 0 guanfacine 1 mg tablet 2 mg PO BEDTIME RF: 0 drospirenone-ethinyl estradiol [JORDAN (28)] 3-0.02 mg tablet 1 tab PO QPM RF: 0 folic acid 800 mcg Tablet 0.8 mg PO DAILY RF: 0 calcium carbonate-vitamin D3 [Calcium 500 + D] 500 mg(1,250mg) -400 unit Tablet,Chewable 2 tab PO DAILY RF: 0 Probiotic 2 tab PO DAILY RF: 0 meloxicam 15 mg tablet 15 mg PO QPM RF: 0 guanfacine 1 mg tablet 1 mg PO QAM RF: 0 bupropion HCl 150 mg tablet extended release 24 hr 450 mg PO DAILY RF: 0 Vitamin B-12 1 tab PO DAILY RF: 0 Referrals: Alison Bird MD [Primary Care Provider] - Nolan Macario MD [Physician] - <Karissa Summers DO - Last Filed: 03/06/19 11:24> Cosign ED Attending Cosignature Attestation: I was immediately available in the department for consultation. Documentation has been reviewed. I agree with assessment and plan.
[2019-03-05] MEDS: ONDANSETRON 4 MG ODT SL (17:21)
[2019-03-05] MEDS: OXYCODONE/ACETAMINOPHEN 5/325 TABLET 1 TAB PO (17:21)
[2019-03-05 17:27] VITALS: BP 119/67; PULSE 93; RESP 15; TEMP 36.6; O2SAT 100
[2019-03-05] MEDS: MORPHINE 4 MG/ML INJ IV (17:54)
[2019-03-05 18:50] VITALS: BP 135/78; PULSE 78; RESP 16; O2SAT 98
--- NOTE | 2019-03-27 16:45 | PC.NURSE ---
Late Entry: Per Renate RN, pt received 1000mL IV NS completed 03/05/2019 at 1650.
== END 2019-03-05 18:50 | disposition home or self-care (01) ==
PROVIDERS: Emergency Medicine; Emergency Provider Nurse Practitioner Family; PCP Family Medicine
DX: K81.9 Cholecystitis, unspecified (principal)
CPT/HCPCS: 36415; 36591; 76700; 80053; 81003; 81025; 82150; 83690; 85025; 96361; 96374; 96375; 96376; 99283; 99284; J2270; J2405

== ENCOUNTER 2019-03-13 17:46 | Observation (INO) | payer OTHER, SELFPAY ==
[2019-03-12 10:46] VITALS: BMI 20.5
[2019-03-13] VITALS (16 sets, daily range): BP systolic 121–152; BP diastolic 68–87; PULSE 74–134; RESP 10–18; TEMP 36.4–37.3; O2SAT 95–100; BMI 19.9
--- NOTE | 2019-03-13 | PATH_ITS ---
[facility] Accession Number: [id number] . 01 Material submitted: . PART A: gallbladder - GALLBLADDER AND CONTENTS PART B: liver - LIVER BIOPSY . 02 Diagnosis: A. Gallbladder and Contents, Laparoscopic Cholecystectomy: Chronic cholecystitis, cholesterolosis, and cholelithiasis. . B. Liver Biopsy: Histologic features of benign von Meyenberg complex; negative for malignancy. MRV/03/15/2019 . 02 Electronically signed: . Missy Lobo MD, Pathologist NPI- [id number] . 01 Gross description: . (A) Received in formalin, labeled gallbladder and contents, is an opened gallbladder (length-7.5 cm, diameter-2.8 cm) with salgado-kathleen smooth shiny serosa and a patent cystic duct. No lymph nodes are identified. The lumen contains multiple green solid firm smooth multifaceted calculi (3.1 x 2.5 x 1.2 cm in aggregate). The mucosa is kathleen smooth and flat. The wall is up to 0.2 cm thick. No nodules, masses or lesions are identified. Section code: (A1) cystic duct resection margin and two serial sections from the body; (A2) two longitudinal sections from the fundus. ([id number]) (B) Received in formalin, labeled liver biopsy, is an unoriented piece of pale kathleen hepatic tissue (1.3 x 0.9 x 0.7 cm). The resection margin is inked black. Serially sectioned and entirely submitted in cassette B1. ([id number]) /MRV . 02 Pathologist provided ICD-10: K81.1 . 02 CPT . 186709, 847992 Performed at: [address], [place], [place] [id number] MD Yuri Charlton MD Phone: [phone] Performed at: 02 [facility] [address] [place] [id number] MD Mariel Amato MD Phone: [phone]
[2019-03-13] MEDS: LACTATED RINGERS 1,000 ML 42 ML IV ×2 (12:21→15:13)
[2019-03-13] MEDS: APREPITANT 40 MG CAPSULE PO (12:56)
[2019-03-13] MEDS: levoFLOXacin 500 MG/100 ML PIGGYBACK 100 MG IV (13:10)
--- NOTE | 2019-03-13 13:38 | SUR.OPER ---
Supine on padded OR bed, head on pillow, arms secured on padded arm boards at <90 degrees abduction, legs uncrossed, safety belt at thigh, tape over blanket over lower legs.
[2019-03-13] MEDS: BUPIVACAINE 0.5% (PF) VIAL 30 ML INJ (13:59)
--- NOTE | 2019-03-13 15:34 | PM.OP.1 ---
Operative Date/Time/Diagnoses Date of procedure: 03/13/19 Time of procedure: 15:34 Pre-op diagnosis: Cholelithiasis cholecystitis Post-op diagnosis: same (Cholelithiasis cholecystitis chronic ( thickened gallbladder wall with multiple large stones). Micronodular liver. Biopsy taken) Procedure & Clinicians Procedure: Laparoscopic cholecystectomy. Intraoperative liver biopsy for indicated procedure. Same procedure as scheduled: Yes Indications: Laparoscopic Chiolecystectomy with liver biopsy due to intraoperative findings. Surgeon: Jim Lopez Click Yes if Unassisted: Yes Anesthesia Type: General Operative Notes Findings: Thickened Gallbladder wall with large stones. Micronodular liver Closure Type: primary Specimen(s): other (gallbladder and liver biopsy) Prosthetic devices, grafts, tissues, transplants, or devices: none Estimated Blood Loss (mL): 100 Procedure in detail: The patient was placed supine on the operating room table and underwent general endotracheal anesthesia. There prepped and draped in the usual fashion. Local anesthetic was infiltrated beneath the umbilicus and an incision made in the infraumbilical fold. It was carried down to the level of the peritoneum which was opened under direct vision. Stay sutures of 0 Vicryl were placed in the fascia. And a cannula was inserted and the abdomen was insufflated. The patient was repositioned and local anesthetic was infiltrated again beneath the right costal margin and 3 small 5 mm ports were inserted. The gallbladder was identified and grasped and elevated. it was a thickened whitish structure. The cystic duct and cystic artery removed readily visible as the patient is quite thin. There were long and tapered and the cyst common bile duct was also visible in the marielena. I the cystic duct from the artery. Three clips were placed across it and it was divided leaving 2 in the patient. I did the same with the artery and divided it. There was a small side branch that was bleeding that I placed a clip on. I then dissected the gallbladder from the bed the liver and released it. It was brought out without difficulty through the umbilical port. on re-examination there was a slow ooze from his the side branch. With some manipulation I was able to place a clip across it. Great care was taken to avoid being anywhere near the common bile duct. the liver was noted to be quite abnormal and micronodular nature. I took a biopsy of the liver edge. It was sent separately. Cautery was used to control the bleeding. The right upper quadrant irrigated and suctioned free of fluid. Meticulous hemostasis was achieved. the ports were all removed. The stay sutures at the umbilicus were tied. An additional 2 0 PDS was placed between the other 2 sutures. The wounds were irrigated. Four 0 Vicryl subcuticular stitch an exofin glue was used to close the skin. patient was awakened and taken to recovery area in good condition. Complications: none Condition: stable Disposition: PACU Plan for aftercare: Follow-up in the office
[2019-03-13] MEDS: ONDANSETRON 4 MG/2 ML INJ IV ×2 (15:49→18:46)
[2019-03-13] MEDS: HYDROMORPHONE 2 MG INJ 0.5 MG IV ×4 (15:55→16:10)
[2019-03-13] MEDS: METOCLOPRAMIDE 10 MG/2 ML INJ IV (16:07)
[2019-03-13] MEDS: fentaNYL 100 MCG/2 ML INJ 50 MCG IV ×2 (16:15→16:20)
[2019-03-13] MEDS: hydrOXYzine 50 MG/ML INJ 25 MG IM (16:25)
[2019-03-13 17:01] LABS: Add Manual Diff / Slide Review NO; Basophils Absolute Auto 100 /uL (0-100); Basophils Percent Auto 0.8 % (0-2); Eosinophils Absolute Auto 100 /uL (0-450); Eosinophils Percent Auto 0.9 % (2-4); Hemoglobin 11.8 g/dL (12.0-16.0); Lymphocytes Absolute Auto 800 /uL (1100-4500); Lymphocytes Percent Auto 6.9 % (25-40); Mean Corpuscular Hemoglobin 29.4 PG (26-34); Mean Corpuscular Volume 91.7 fL (80-100); Monocytes Absolute Auto 300 /uL (0-900); Monocytes Percent Auto 2.7 % (3-14); Neutrophils Absolute Auto 9800 /uL (1500-7000); Neutrophils Percent Auto 88.7 % (50-75); Platelet Count 314 X10^3/uL (150-400); Red Blood Cell Count 4.03 X10^6/uL (4.0-5.2); Red Cell Distribution Width 13.6 % (11.6-14.8)
--- NOTE | 2019-03-13 17:43 | PC.NURSE ---
Addendum entered by Bonita Simms R.N. 03/13/19 22:38: Dr. Lopez at bedside with patient, aware of HR increase. HR regular, s1 s2, normotensive. Addendum entered by Bonita Simms R.N. 03/13/19 19:55: Updated Dr. Lopez regarding VS 121/79, HR 104 apical. Original Note: Lluvia shift note: Patient is awake, alert, and pleasant. Skin is pale, but warm. Kobi at bedside providing supportive care. HR on arrival 116, normotensive. x 4 incisions to abdomen, clean, dry and secured with dermabond. Oriented to room, environment, and plan of care.
[2019-03-13] MEDS: HYDROMORPHONE 0.5 MG INJ IV (18:46)
[2019-03-13] MEDS: LACTATED RINGERS 1,000 ML 100 ML IV (18:46)
--- NOTE | 2019-03-13 19:22 | PM.PNPO.1 ---
Exam Vital Signs (past 8 hours): - 03/13/19 12:00 03/13/19 15:35 03/13/19 15:40 Temperature 99.1 F 98.6 F Pulse Rate 94 H 74 80 Respiratory Rate 15 13 15 Blood Pressure 121/80 138/87 132/77 Pulse Oximetry 100 100 99 03/13/19 15:45 03/13/19 16:00 03/13/19 16:15 Temperature 98.6 F 98.6 F 97.9 F Pulse Rate 89 99 H 98 H Respiratory Rate 18 18 18 Blood Pressure 129/74 141/81 H 131/74 Pulse Oximetry 98 96 95 03/13/19 16:30 03/13/19 16:45 03/13/19 17:00 Temperature 97.7 F 97.7 F Pulse Rate 134 H 120 H 118 H Respiratory Rate 12 10 L 16 Blood Pressure 128/79 148/86 H 145/82 H Pulse Oximetry 96 99 95 03/13/19 17:15 03/13/19 17:25 03/13/19 17:55 Temperature 97.5 F L 97.9 F Pulse Rate 127 H 119 H 101 H Respiratory Rate 16 18 18 Blood Pressure 152/85 H 150/78 H 142/84 H Pulse Oximetry 98 100 99 03/13/19 18:25 Temperature 97.9 F Pulse Rate 117 H Respiratory Rate 17 Blood Pressure 151/79 H Pulse Oximetry 100 Oxygen Delivery Method Nasal Cannula Oxygen Flow Rate 1 Narrative Exam Narrative: Him to do a postop check. Patient is anxious and having abdominal pain. Objective Labs Result Diagrams: 03/13/19 16:56 Labs: Laboratory Results - last 24 hr 03/13/19 16:56 WBC 11.0 RBC 4.03 Hgb 11.8 L Hct 37.0 MCV 91.7 MCH 29.4 MCHC 32.0 RDW 13.6 Plt Count 314 Neut % (Auto) 88.7 H Lymph % (Auto) 6.9 L [place] % (Auto) 2.7 L Eos % (Auto) 0.9 L Baso % (Auto) 0.8 Neut # (Auto) 9800 H Lymph # (Auto) 800 L [place] # (Auto) 300 Eos # (Auto) 100 Baso # (Auto) 100 Assessment & Plan Post-op Postoperative Procedures Operation Date: 03/13/19 13:00 Actual Procedures Side Surgeon p Laparoscopic Cholecystectomy Jim Lopez MD Postoperative status narrative: Patient is isolated tachycardia with hypertension. I think she is very anxious. I have ordered some Ativan and will ask the nurse to give a dose now. There is no abdominal distention. Her hemoglobin is the same as preop labs drawn recently. I do not believe she has bleeding internally. Postoperative plan narrative: Ativan. Hematocrit in the morning. Sooner if she deteriorates further.
[2019-03-13] MEDS: LORazepam 2 MG/ML SYRINGE 1 MG IV (19:30)
[2019-03-13] MEDS: OXYCODONE/ACETAMINOPHEN 5/325 TABLET 1 TAB PO (23:54)
[2019-03-14 00:03] VITALS: BP 148/85; PULSE 88; RESP 16; TEMP 36.5; O2SAT 100
--- NOTE | 2019-03-14 01:55 | PC.NURSE ---
2300- Pt POD#0 gallbladder removal 4 four lap sites w/ dermabond & CDI. Admit to unit for inc HR while awake and talking; H&H stable. Cont SpO2 in place w/ sats stable. LR running as ordered into L hand; per prev RN pt not voided since arrival on unit at 1700. 0000- PO Percocet given for pain; VS checked HR up in the 120's as pt talks and moves in bed. Pt states she doesn't feel any 'pounding' in her chest. Up to BSC to try and urinate. 275 mL out in BSC; back to bed. 0400- Pt having no issues voiding thru the night.
[2019-03-14 04:03] VITALS: BP 131/71; PULSE 106; RESP 16; TEMP 36.7; O2SAT 100
[2019-03-14] MEDS: LACTATED RINGERS 1,000 ML 100 ML IV (05:07)
[2019-03-14 06:47] LABS: Add Manual Diff / Slide Review NO; Basophils Absolute Auto 0 /uL (0-100); Basophils Percent Auto 0.1 % (0-2); Eosinophils Absolute Auto 0 /uL (0-450); Eosinophils Percent Auto 0.1 % (2-4); Hematocrit 36.1 % (36-46); Hemoglobin 12.1 g/dL (12.0-16.0); Lymphocytes Absolute Auto 700 /uL (1100-4500); Lymphocytes Percent Auto 7.4 % (25-40); Mean Corpuscular HGB Conc 33.5 % (30-36); Mean Corpuscular Hemoglobin 30.5 PG (26-34); Mean Corpuscular Volume 91.2 fL (80-100); Monocytes Absolute Auto 700 /uL (0-900); Monocytes Percent Auto 6.5 % (3-14); Neutrophils Absolute Auto 8600 /uL (1500-7000); Neutrophils Percent Auto 85.9 % (50-75); Platelet Count 301 X10^3/uL (150-400); Red Blood Cell Count 3.96 X10^6/uL (4.0-5.2); Red Cell Distribution Width 13.3 % (11.6-14.8)
[2019-03-14 08:00] VITALS: BP 129/73; PULSE 18; RESP 18; TEMP 36.3; O2SAT 100
[2019-03-14] MEDS: buPROPion XL 150 MG TAB 450 MG PO (08:24)
[2019-03-14] MEDS: GUANFACINE 1 MG TABLET PO (08:25)
[2019-03-14] MEDS: KETOROLAC 15 MG/ML VIAL IV (08:26)
[2019-03-14] MEDS: OXYCODONE/ACETAMINOPHEN 5/325 TABLET 1 TAB PO ×2 (08:26→13:56)
--- NOTE | 2019-03-14 08:47 | CM.DANOTE ---
DCP: Case received, EMR reviewed ad met with patient. Introduced self and role. Information regarding patient's baseline status received from patient. DCP template completed with information currently available. Patient is a 48 year old female who admitted yesterday afternoon to the care of the surgical team. PCP: Dr. Bird. Payer: confirmed: Yuriy Rene. Patient came to hospital for surgical procedure. She holds diagnosis of Cholecystitis, and had laparoscopic cholecystectomy. Met briefly with patient. Alert and oriented. Stated, she was still having some pain. She currently lives in [place] with her , Cabrera. 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 P: DCP to continue to follow. Patient should be able to return home when she is medically stable. Michelle Joe RN/[employer] [place]
--- NOTE | 2019-03-14 10:39 | PC.NURSE ---
Sherin appears slightly anxious at times. VSS. Able to slowly take in clear liq. diet. Up amb. in halls without difficulty. Is about to get in shower. She states she has adq. pain control with Toradol and Percocet given earlier. Husb. supportive at bedside. Anticipate disch. later today.
[2019-03-14 11:24] VITALS: BP 126/75; PULSE 92; RESP 18; TEMP 36.5; O2SAT 100
--- NOTE | 2019-03-14 15:38 | P.DS_ITS ---
History of Present Illness Date Patient Seen: 03/14/19 Time Patient Seen: 12:31 Chief complaint: [id number] Narrative: The patient is a woman with right-sided abdominal pain and pleuritic right chest pain was found on ultrasound to have a thickened gallbladder wall and multiple stones. She was brought in for laparoscopic cholecystectomy. Discharge Providers Date of admission: 03/13/19 17:46 Discharge Date: 03/14/19 Primary care physician: Alison Bird MD Consults: 03/13/19 18:26 Consult to Discharge Planning Routine Comment: Discharge provider: Jim Lopez MD Summary Discharge Diagnosis: Chronic cholelithiasis with cholecystitis. Depression chronic Rheumatoid arthritis chronic Abnormal liver at laparoscopy micronodular await pathology at time of discharge Hospital Course: The patient underwent a laparoscopic cholecystectomy. Postoperatively she had unexplained tachycardia without hypotension. Her hemoglobin and hematocrit remained constant. Her tachycardia was felt to be related to severe anxiety and some element of pain. ultimately her pain was controlled as was her anxiety. Her pulse came below 100. She tolerated a diet. She was able to get out of bed and walk. She was discharged to the care of her to home and will follow up in the office. She was discharged on pain medication and a general diet. Exam Vital Signs (past 8 hours): - 03/14/19 08:00 03/14/19 11:24 Temperature 97.3 F L 97.7 F Pulse Rate 18 L 92 H Respiratory Rate 18 18 Blood Pressure 129/73 126/75 Pulse Oximetry 100 100 Oxygen Delivery Method Nasal Cannula Oxygen Flow Rate 1 Narrative Exam Narrative: Lungs are clear. Abdomen is scaphoid soft without mass. No unusual tenderness. incisions are intact. no cellulitis. Objective Labs Result Diagrams: 03/14/19 06:19 Labs: Laboratory Results - last 24 hr 03/13/19 03/14/19 16:56 06:19 WBC 11.0 10.0 RBC 4.03 3.96 L Hgb 11.8 L 12.1 Hct 37.0 36.1 MCV 91.7 91.2 MCH 29.4 30.5 MCHC 32.0 33.5 RDW 13.6 13.3 Plt Count 314 301 Neut % (Auto) 88.7 H 85.9 H Lymph % (Auto) 6.9 L 7.4 L Karnes % (Auto) 2.7 L 6.5 Eos % (Auto) 0.9 L 0.1 L Baso % (Auto) 0.8 0.1 Neut # (Auto) 9800 H 8600 H Lymph # (Auto) 800 L 700 L Karnes # (Auto) 300 700 Eos # (Auto) 100 0 Baso # (Auto) 100 0 Discharge Plan Discharge Plan Patient Disposition: Home Discharge comment: Resume your methotrexate. Do not lift over 10 lb or strain for the next 4 weeks. Keep her follow-up appointment as scheduled. If you need to reach the doctor after hours please call our office and hold through the message until the page bleach plant operator picks up Discharge Med Rec/Prescriptions Prescriptions: New oxycodone-acetaminophen [Percocet] 5-325 mg tablet 1 tab PO Q4-6H PRN (Reason: painful procedure) Qty: 15 RF: 0 Continued methotrexate sodium 2.5 mg tablet See Rx Instructions .ROUTE .COMPLEX RF: 0 guanfacine 1 mg tablet 2 mg PO BEDTIME RF: 0 drospirenone-ethinyl estradiol 3-0.02 mg tablet 1 tab PO QPM RF: 0 folic acid 800 mcg Tablet 0.8 mg PO DAILY RF: 0 Probiotic 2 tab PO DAILY RF: 0 oxycodone-acetaminophen [Percocet] 5-325 mg tablet 1 tab PO Q4-6H PRN (Reason: pain) Qty: 20 RF: 0 ondansetron 4 mg tablet,disintegrating 4 mg PO TID-QID PRN (Reason: nausea and vomiting) Qty: 30 RF: 0 meloxicam 15 mg tablet 15 mg PO QPM RF: 0 guanfacine 1 mg tablet 1 mg PO QAM RF: 0 bupropion HCl 150 mg tablet extended release 24 hr 450 mg PO DAILY RF: 0 Vitamin B-12 1 tab PO DAILY RF: 0 Follow up/Referrals: Alison Bird MD [Primary Care Provider] - Jim Lopez MD [Physician] - As previously scheduled Provider Discharge Instructions Diet: Diet as Tolerated Activity: Activity as tolerated. Do not operate machinery or drive motor vehicle while taking Percocet. Skin/Wound/Dressing Care Report to your healthcare provider any signs of infection, such as:: chills, fever, increased pain, unusual drainage and unusual redness Dressing: Your scope sites have dermabond, a skin adhesive, on them. Do not remove dermabond. It will start to slough off in a few weeks time. Other wound treatment: Do not lift anything heavier than 10 lb. You may shower. Do not submerge/soak in bathtub or hot tub until cleared by your MD. Visit Report/Discharge Packet Instructions: DI for Cholecystectomy, DI for Laparoscopy, [facility]: Wound Care Stand Alone Forms: Surgery Discharge Discharge Data Primary Care Provider: Alison Bird Attending Provider: Jim Lopez Admit Date/Time: 03/13/19 17:46 Discharges patient from system. Discharge Date/Time: 03/14/19 13:57
== END 2019-03-14 13:57 | disposition home or self-care (01) ==
LOC: AC 17:49
PROVIDERS: Admitting Provider Specialist; PCP Family Medicine; Visit Provider Specialist
PROC: 0FT44ZZ Resection of Gallbladder, Percutaneous Endoscopic Approach (ICD-10-PCS; CPT 47562; principal; 2019-03-13 13:00)
DX: K80.10 Calculus of gallbladder with chronic cholecystitis without obstruction (principal); F32.9 Major depressive disorder, single episode, unspecified; M06.9 Rheumatoid arthritis, unspecified
CPT/HCPCS: 47562; 36415; 47001; 85025; 88305; 94762; G0378; J0330; J1100; J1170; J1885; J1956; J2060; J2250; J2405; J2704; J2765; J3010; J3410; J8501

== ENCOUNTER → 2019-03-20 16:18 | Outpatient (CLI) | payer OTHER, SELFPAY ==
[2019-03-19 14:02] VITALS: BMI 19.9
--- NOTE | 2019-03-20 16:23 | DI.CT.S_ITS ---
PROCEDURE: CT CHEST ABD PEL W CON INDICATIONS: post lap choly unusual abd pain, bile leak/abscess? TECHNIQUE: After the administration of oral and intravenous contrast, 5 mm thick sections acquired from the lung apices to the symphysis. 5 mm coronal and sagittal reformats were performed, with additional 7 mm coronal MIP reformats through the lungs. For radiation dose reduction, the following was used: automated exposure control, adjustment of mA and/or kV according to patient size. COMPARISON: None. FINDINGS: Image quality: Excellent. CHEST: Lungs and pleura: There is a small low density right pleural effusion. No acute airspace opacities. No pneumothorax. Mediastinum: Heart size is normal. No pericardial effusion. No mediastinal or hilar adenopathy by size criteria. Thoracic aorta and central pulmonary arteries are normal in size. Esophagus is normal in caliber. No hiatal hernia. Chest wall: No axillary or supraclavicular adenopathy by size criteria. Thyroid gland is unremarkable. ABDOMEN: Solid organs: Liver is normal in size and enhancement. Gallbladder is surgically absent. There is a trace intermediate density fluid collection within the gallbladder fossa which measures 2.7 x 1.0 x 2.7 cm (series 2, image 80 and series 3, image 17).. Biliary system is non dilated. Pancreas enhances normally. Spleen is normal in size and enhancement. No adrenal nodules. Kidneys demonstrate normal size and enhancement, without hydronephrosis. Peritoneum and bowel: Bowel loops demonstrate normal wall thickness and caliber. A short appendix appears gas filled and thin walled. No free fluid or air. Nodes and vessels: No retroperitoneal or mesenteric adenopathy by size criteria. Aorta and inferior vena cava are normal in size. Miscellaneous: No ventral hernias. PELVIS: Genitourinary: Bladder wall thickness is normal. The uterus and ovaries are grossly unremarkable. Miscellaneous: No inguinal hernias or adenopathy. Bones: No suspicious bony lesions. No vertebral body compression fractures. IMPRESSION: 1. Small low-density pleural effusion. 2. Trace intermediate density fluid collection within the gallbladder fossa. Very small bile leak cannot be excluded. However, there is no discrete fluid collection with rim enhancement to suggest abscess or large biloma. If there is clinical suspicion for bile leak, HIDA scan may be helpful. 3. No other acute intra-abdominal findings. Normal appendix. Dictated by: Ryann Louis M.D. on 03/20/2019 at 18:15 Approved by: Ryann Louis M.D. on 03/20/2019 at 18:19
[2019-03-20 17:12] LABS: Alanine Aminotransferase 27 IU/L (9-52); Albumin 4.3 g/dL (3.5-5.0); Albumin Globulin Ratio 1.2 (1.0-2.8); Alkaline Phosphatase 168 U/L (38-126); Aspartate Aminotransferase 26 IU/L (14-36); Bilirubin Total 0.6 mg/dL (0.2-1.3); Blood Urea Nitrogen 10 mg/dL (7-17); Calcium 9.6 mg/dL (8.4-10.2); Carbon Dioxide 26 mmol/L (22-32); Chloride 100 mmol/L (98-107); Estimated Glomerular Filt Rate 59.4 mL/min (>60); Globulin 3.5 g/dL (1.7-4.1); Glucose 85 mg/dL (70-100); HEMOLYSIS < 15 (0-50); Potassium 4.7 mmol/L (3.4-5.1); Sodium 135 mmol/L (137-145); Total Protein 7.8 g/dL (6.3-8.2)
[2019-03-20 18:35] LABS: Add Manual Diff / Slide Review NO; Basophils Absolute Auto 100 /uL (0-100); Basophils Percent Auto 0.8 % (0-2); Eosinophils Absolute Auto 200 /uL (0-450); Eosinophils Percent Auto 2.3 % (2-4); Hematocrit 35.9 % (36-46); Hemoglobin 11.7 g/dL (12.0-16.0); Lymphocytes Absolute Auto 1400 /uL (1100-4500); Lymphocytes Percent Auto 19.7 % (25-40); Mean Corpuscular HGB Conc 32.4 % (30-36); Mean Corpuscular Hemoglobin 29.7 PG (26-34); Mean Corpuscular Volume 91.5 fL (80-100); Monocytes Absolute Auto 500 /uL (0-900); Monocytes Percent Auto 6.8 % (3-14); Neutrophils Absolute Auto 4900 /uL (1500-7000); Neutrophils Percent Auto 70.4 % (50-75); Platelet Count 320 X10^3/uL (150-400); Red Blood Cell Count 3.93 X10^6/uL (4.0-5.2)
== END ==
PROVIDERS: PCP Family Medicine; Visit Provider Specialist
DX: R10.84 Generalized abdominal pain (principal); J90 Pleural effusion, not elsewhere classified; G89.18 Other acute postprocedural pain; Z90.49 Acquired absence of other specified parts of digestive tract
CPT/HCPCS: 36415; 71260; 74177; 80053; 85025

== ENCOUNTER → 2020-06-28 08:11 | Outpatient (CLI) | payer OTHER, SELFPAY ==
[2019-03-19 14:02] VITALS: BMI 19.9
--- NOTE | 2020-06-28 | DI.MG.S_ITS ---
BILATERAL DIGITAL SCREENING MAMMOGRAM 3D/2D WITH CAD: 06/28/2020 CLINICAL: Routine screening. Family history of breast cancer. Comparison is made to exams dated: 06/27/2018 mammogram, 02/15/2017 mammogram, 02/17/2016 mammogram, and 03/26/2013 mammogram - outside location. The tissue of both breasts is heterogeneously dense. This may lower the sensitivity of mammography. Current study was also evaluated with a Computer Aided Detection (CAD) system. No significant masses, calcifications, or other findings are seen in either breast. There has been no significant interval change. IMPRESSION: NEGATIVE There is no mammographic evidence of malignancy. A 1 year screening mammogram is recommended. This exam was interpreted at Station ID: [id number]. NOTE: For mammograms, a report in lay terms will be sent to the patient. Approximately 15% of breast malignancies will not be visualized mammographically. In the management of a palpable breast mass, a negative mammogram must not discourage biopsy of a clinically suspicious lesion. Electronically Signed By: Jono haskins/gabi:06/30/2020 07:47:38 letter sent: Normal Exam ACR BI-RADS Category 1: Negative [id number]
== END ==
PROVIDERS: PCP Family Medicine; Referring Provider Family Medicine; Visit Provider Family Medicine
DX: Z12.31 Encounter for screening mammogram for malignant neoplasm of breast (principal); Z80.3 Family history of malignant neoplasm of breast
CPT/HCPCS: 77063; 77067

== ENCOUNTER → 2021-03-23 13:00 | Outpatient (CLI) | payer OTHER, SELFPAY ==
[2019-03-19 14:02] VITALS: BMI 19.9
[2021-03-23 16:55] LABS: COVID19 -Nasal RAPID Negative (Negative)
== END ==
PROVIDERS: PCP Family Medicine; Visit Provider Student in an Organized Health Care Education/Training Program
DX: Z20.822 Contact with and (suspected) exposure to COVID-19 (principal); Z11.59 Encounter for screening for other viral diseases
CPT/HCPCS: 87635

== ENCOUNTER 2021-03-26 06:46 | Day surgery (SDC) | payer OTHER, SELFPAY ==
[2019-03-19 14:02] VITALS: BMI 19.9
[2021-03-26] VITALS (10 sets, daily range): BP systolic 129–158; BP diastolic 68–91; PULSE 84–116; RESP 10–18; TEMP 36.4–36.8; O2SAT 99–100; BMI 23.0
--- NOTE | 2021-03-26 07:09 | PM.PREOP ---
Pre-operative Note COVID-19 COVID-19 status: Result pending Interval Note History & Physical reviewed/Exam performed by Physician: Yes Changes to H&P: No
--- NOTE | 2021-03-26 07:10 | PM.HP.1 ---
History of Present Illness History of Present Illness Date Patient Seen: 03/26/21 Time Patient Seen: 07:10 Chief complaint: BOUBACAR Narrative: 50-year-old female with known rheumatoid arthritis on methotrexate and meloxicam, presents for septoplasty, inferior turbinate reduction, and possible internal nasal valve release. Chronic nasal airway obstruction, left greater than right, persistent despite medical therapy. She was last seen in clinic 01/28/2021, no interval changes. Patient History Medical History Benign liver cyst Chronic thoracic back pain Depression Osteoarthritis Pleurisy without effusion Rheumatoid arthritis Surgical History Hx of arthroscopic knee surgery Family & Social History Family History Father Hypertension Diverticulitis Grandfather Heart disease Stroke Diverticulitis Grandmother Hypertension Diabetes mellitus Social History: household members spouse Tobacco & Substance use: Smoking Status Never smoker alcohol intake never Substance Use Type does not use Meds Home Medications and Allergies Home Medications Medication Instructions Recorded Confirmed Type Vitamin B-12 1 tab PO DAILY 07/24/18 03/28/19 History bupropion HCl 450 mg PO DAILY 07/24/18 03/28/19 History guanfacine 1 mg PO QAM 07/24/18 03/28/19 History meloxicam 15 mg PO QPM 07/24/18 03/28/19 History Probiotic 2 tab PO DAILY 03/05/19 03/28/19 History drospirenone-ethinyl estradiol 1 tab PO QPM 03/05/19 03/28/19 History folic acid 0.8 mg PO DAILY 03/05/19 03/28/19 History guanfacine 2 mg PO BEDTIME 03/05/19 03/28/19 History methotrexate sodium See Rx Instructions .ROUTE .COMPLEX 03/05/19 03/28/19 History ondansetron 4 mg PO TID-QID PRN #30 tab 03/05/19 03/28/19 Rx oxycodone-acetaminophen [Percocet] 1 tab PO Q4-6H PRN #20 tab 03/05/19 03/28/19 Rx oxycodone-acetaminophen [Percocet] 1 tab PO Q4-6H PRN #15 tab 03/14/19 03/28/19 Rx Allergies Allergy/AdvReac Type Severity Reaction Status Date / Time amoxicillin Allergy Unknown HIVES Verified 03/28/19 09:18 clavulanic acid Allergy Unknown STOMACH Verified 03/28/19 09:18 erythromycin base Allergy Unknown STOMACH Verified 03/28/19 09:18 PROBLEMS bacitracin Allergy Verified 03/28/19 09:18 [From Neosporin ([id number])] fluoxetine Allergy Verified 03/28/19 09:18 neomycin Allergy Verified 03/28/19 09:18 [From Neosporin ([id number])] polymyxin B Allergy Verified 03/28/19 09:18 [From Neosporin ([id number])] adhesive AdvReac Severe burning Verified 03/28/19 09:18 skin Review of Systems Review of Systems ROS: Yes All systems reviewed with the patient and are negative except as otherwise documented Exam Narrative Exam Narrative: Well-developed well-nourished female. One to 2+ left septal deviation including caudal deviation that narrows the left nostril, some internal nasal valve collapse left greater than right. Heart regular rate and rhythm without murmur, lungs clear to auscultation bilaterally. Assessment & Plan Assessment & Plan narrative: Assessment 1. Nasal airway obstruction 2. Septal deviation 3. Inferior turbinate hypertrophy 4. Internal nasal valve restriction 5. History of left nasal vestibulitis 6. His rheumatoid arthritis Plan: Following discussion of the material risks benefits complications and alternatives, the patient elected to proceed with septoplasty, bilateral inferior turbinate reduction, and possible internal nasal valve released.
--- NOTE | 2021-03-26 07:12 | P.OP_ITS ---
Operative Date/Time/Diagnoses Date of procedure: 03/26/21 Time of procedure: 09:02 Pre-op diagnosis: Nasal airway obstruction, septal deviation, inferior turbinate hypertrophy, internal nasal valve obstruction Post-op diagnosis: same Procedure & Clinicians Procedure: 1. Septoplasty 2. Bilateral inferior turbinate reduction via intramural cautery Same procedure as scheduled: Yes Indications: 50-year-old female with the above diagnoses incompletely managed with medical therapy presents to the above procedures. Following discussion of the material risks benefits complications and alternatives, she elected to proceed. Surgeon: Jeffrey Stevenson Click Yes if Unassisted: Yes Anesthesia Type: General and Local Operative Notes Findings: 1-2+ left septal deviation including caudal deviation, INV restriction resolved after septoplasty, no INV work necessary Closure Type: primary Specimen(s): none sent Estimated Blood Loss (mL): 20 Procedure in detail: Following identification and confirmation of consent as well as preoperative Afrin nasal spray, the patient was brought to the operating room suite and placed in the supine position. General endotracheal anesthesia was administered. I infiltrated the septum widely bilaterally with 1% lidocaine 1 100,000 epinephrine followed by temporary packing with cotton with Afrin and 4% lidocaine. Following sterile prep and drape, the packing was removed and I performed a right april-transfixion incision, elevated the right mucop erichondrial and mucoperiosteal flap. I disarticulated near the bony/cartilaginous junction and elevated the left mucoperiosteal flap. Deviated portions of the perpendicular plate of the ethmoid and vomer were resected. The residual quadrilateral cartilage was further straightened by trimming it inferiorly as well as reducing the maxillary crest. A 2 mm strip of cartilage paralleling the residual 1 cm dorsal and caudal strut was resected to further straighten the quadrilateral cartilage. The hemitransfixion incision was closed with interrupted 5 0 chromic followed by a running 4 0 plain gut mattress suture to reapproximate the septal flaps. At case completion, 20/1000th of an inch silastic splints were placed bilaterally, sutured anteriorly with a single 4 0 nylon. The head of each inferior turbinate had been previously infiltrated with additional local anesthetic and a 25 gauge spinal needle was used to impale the length of the turbinate, with cautery on a setting of 15 activated on slow withdrawal. The turbinates were then outfractured. The internal nasal valves were patent at completion, therefore no manipulation was necessary. The procedure completed, sponge and needle counts were correct and the patient was extubated in the operating room and taken to recovery room in stable condition without known complication. Postoperative care: Nasal saline every hour while awake, Vaseline or Polysporin to the nostrils at all times, begin irrigations t.i.d. beginning pod 1. Humidifier at the bedside blowing on the face. Tylenol alternating with Advil for pain control, oxycodone if necessary for breakthrough pain. Complications: none Post-operative Condition: stable Disposition: same day surgery Plan for aftercare: DC home, nasal saline every hour while awake, begin irrigations tomorrow in addition if desired t.i.d. Polysporin to the nostrils at all times, no nose blowing, no heavy lifting. Follow-up in 1 week for nasal splint removal. Alternate Tylenol and Advil every 3 hours for pain control, possible oxycodone for breakthrough pain.
[2021-03-26] MEDS: ACETAMINOPHEN 325 MG TABLET 975 MG PO (07:34)
[2021-03-26] MEDS: LACTATED RINGERS 1,000 ML 42 ML IV (07:35)
[2021-03-26] MEDS: OXYMETAZOLINE NASAL SPRAY 15 ML 2 SPRAYS NASAL ×2 (07:35→08:33)
[2021-03-26] MEDS: SCOPOLAMINE 1 PATCH TOP (07:44)
[2021-03-26] MEDS: APREPITANT 40 MG CAPSULE PO (07:44)
--- NOTE | 2021-03-26 08:17 | SUR.OPER ---
Supine on padded OR bed, head on pillow, bilateral arms padded and tucked at side, legs uncrossed, safety belt at thigh, tape over blanket over lower legs .
[2021-03-26] MEDS: LIDOCAINE 4% SOLN 50 ML 20 ML TOP (08:28)
[2021-03-26] MEDS: LIDOCAINE 1% W/EPI 20 ML INJ (08:45)
[2021-03-26] MEDS: ONDANSETRON 4 MG/2 ML INJ IV (09:28)
[2021-03-26] MEDS: METOCLOPRAMIDE 10 MG/2 ML INJ IV (10:22)
--- NOTE | 2021-03-26 10:22 | SUR.PHASEII ---
Pt has a strong hxo PONV. She was given a scop patch and emend prior to her procedure. Experienced some nausea in PACU and zofran IV was administered. Nutritrtion in the form of crackers and tea but pt states she is still feeling some nausea. Reglan 10mg IV was then given. Pt is ready for DC awaiting call from
== END 2021-03-26 10:46 | disposition home or self-care (01) ==
PROVIDERS: PCP Student in an Organized Health Care Education/Training Program; Referring Provider Student in an Organized Health Care Education/Training Program; Visit Provider Otolaryngology
PROC: (CPT 30520; principal; 2021-03-26 07:45)
DX: J34.2 Deviated nasal septum (principal); J34.89 Other specified disorders of nose and nasal sinuses; J98.8 Other specified respiratory disorders; J34.3 Hypertrophy of nasal turbinates; M06.9 Rheumatoid arthritis, unspecified; M19.90 Unspecified osteoarthritis, unspecified site; F32.9 Major depressive disorder, single episode, unspecified; F43.10 Post-traumatic stress disorder, unspecified
CPT/HCPCS: 30520; 30802; A9270; J0330; J1100; J2250; J2405; J2704; J2765; J3010; J8501

== ENCOUNTER 2022-02-22 19:08 | Emergency (ER) | payer OTHER, SELFPAY ==
[2019-03-19 14:02] VITALS: BMI 19.9
[2022-02-22] VITALS (7 sets, daily range): BP systolic 123–168; BP diastolic 56–75; PULSE 93–114; RESP 18; TEMP 37.2; O2SAT 98–100; BMI 21.7
[2022-02-22 20:02] LABS: Amorphous Sediment Urine 2+; Bacteria Urine None Seen; Culture Indicated Urine Cult Not Indicated; RBC Urine None Seen (0-5/HPF); WBC Urine None Seen (0-5/HPF)
[2022-02-22 21:30] LABS: Add Manual Diff / Slide Review NO; Basophils Absolute Auto 0 /uL (0-100); Basophils Percent Auto 0.5 % (0-2); Eosinophils Absolute Auto 200 /uL (0-450); Eosinophils Percent Auto 2.6 % (2-4); Hematocrit 37.4 % (36-46); Hemoglobin 12.6 g/dL (12.0-16.0); Lymphocytes Absolute Auto 1100 /uL (1100-4500); Lymphocytes Percent Auto 12.7 % (25-40); Mean Corpuscular HGB Conc 33.7 % (30-36); Mean Corpuscular Hemoglobin 31.5 PG (26-34); Mean Corpuscular Volume 93.5 fL (80-100); Monocytes Absolute Auto 400 /uL (0-900); Monocytes Percent Auto 4.5 % (3-14); Neutrophils Absolute Auto 7100 /uL (1500-7000); Neutrophils Percent Auto 79.7 % (50-75); Platelet Count 342 X10^3/uL (150-400); Red Cell Distribution Width 15.7 % (11.6-14.8); White Blood Cell Count 8.9 X10^3/uL (4.5-11.0)
[2022-02-22 21:31] LABS: Albumin 5.1 g/dL (3.5-5.0); HEMOLYSIS 36 (0-50)
[2022-02-22 21:44] LABS: Alanine Aminotransferase 47 IU/L (<35); Albumin Globulin Ratio 1.3 (1.0-2.8); Alkaline Phosphatase 191 U/L (38-126); Aspartate Aminotransferase 52 IU/L (14-36); BUN Creatinine Ratio 12.4 (6-22); Bilirubin Total 0.8 mg/dL (0.2-1.3); Blood Urea Nitrogen 11 mg/dL (7-17); Carbon Dioxide 28 mmol/L (22-32); Chloride 102 mmol/L (98-107); Estimated Glomerular Filt Rate > 60.0 mL/min (>60); Glucose 91 mg/dL (70-100); Lipase 57 U/L (23-300); Potassium 4.3 mmol/L (3.4-5.1); Sodium 140 mmol/L (137-145); Total Protein 9.1 g/dL (6.3-8.2)
--- NOTE | 2022-02-22 22:22 | ED.GENADULT ---
HPI - General Adult General Chief complaint: Abdominal Pain Stated complaint: LEFT SIDE PAIN Time Seen by Provider: 02/22/22 21:27 Mode of arrival: Family Vehicle History of Present Illness HPI narrative: 51-year-old woman with history of rheumatoid arthritis, a ?rare liver disease disease, presents with 4 months of increasing left upper abdominal/lower thoracic pain. She states that she had COVID in December and still has intermittent symptoms related to that. She notes that positioning, moving breathing all are tender. She states that she is followed by Dr. Kelly at [facility] for her rheumatoid arthritis and in November had noticed a slight bump to liver enzymes and she stopped her meloxicam. She has added 500 mg of Tylenol at night to help with rheumatoid arthritis related hip and back pain. She also complains of a skin rash on the right inner calf that waxes and wanes since she has had COVID. She denies fever or chills. She notes intermittent cough as her COVID symptoms continue to resolve. No palpitations. She has had intermittent lower extremity edema that is minimally problematic over the last couple of weeks. She does not describe diarrhea or constipation. She has not had headaches or significant paresthesias. She reports that she has never had shingles and specifically has not had any rash in the left axillary upper flank area. Related Data Home Medications Medication Instructions Recorded Confirmed Vitamin B-12 1 tab PO DAILY 07/24/18 03/26/21 bupropion HCl 150 mg 24 hr tablet, 450 mg PO DAILY 07/24/18 03/26/21 extended release guanfacine 1 mg tablet 1 mg PO QAM 07/24/18 03/26/21 meloxicam 15 mg tablet 7.5 mg PO QPM 07/24/18 03/26/21 Probiotic 2 tab PO DAILY 03/05/19 03/28/19 drospirenone 3 mg-ethinyl 1 tab PO QPM 03/05/19 03/26/21 estradiol 0.02 mg tablet folic acid 800 mcg tablet 0.8 mg PO DAILY 03/05/19 03/26/21 guanfacine 1 mg tablet 2 mg PO BEDTIME 03/05/19 03/26/21 methotrexate sodium 2.5 mg tablet See Rx Instructions .ROUTE .COMPLEX 03/05/19 03/26/21 ascorbic acid (vitamin C) 500 mg 500 mg PO DAILY 03/26/21 03/26/21 tablet (Vitamin C) drospirenone 3 mg-ethinyl 1 tab PO BEDTIME 03/26/21 03/26/21 estradiol 0.02 mg tablet (JORDAN (28)) lamotrigine 150 mg tablet 150 mg PO BEDTIME 03/26/21 03/26/21 zinc 50 mg capsule 50 mg PO DAILY 03/26/21 03/26/21 Previous Rx's Medication Instructions Recorded ondansetron 4 mg disintegrating 4 mg PO TID-QID PRN #30 tab 03/05/19 tablet oxycodone-acetaminophen 5 mg-325 1 tab PO Q4-6H PRN #20 tab 03/05/19 mg tablet (Percocet) oxycodone-acetaminophen 5 mg-325 1 tab PO Q4-6H PRN #15 tab 03/14/19 mg tablet (Percocet) oxycodone 5 mg tablet 5 - 10 mg PO Q4-6H PRN #14 tab 02/23/22 Allergies Allergy/AdvReac Type Severity Reaction Status Date / Time amoxicillin Allergy Unknown HIVES Verified 03/28/19 09:18 clavulanic acid Allergy Unknown STOMACH Verified 03/28/19 09:18 erythromycin base Allergy Unknown STOMACH Verified 03/28/19 09:18 PROBLEMS bacitracin Allergy Rash Verified 03/26/21 07:14 [From Neosporin ([id number])] fluoxetine Allergy Difficulty Verified 03/26/21 07:14 Swallowing latex Allergy Rash Verified 03/26/21 07:14 meloxicam Allergy Verified 02/22/22 19:24 neomycin Allergy Rash Verified 03/26/21 07:14 [From Neosporin ([id number])] polymyxin B Allergy Hallucinati Verified 03/26/21 07:14 [From Neosporin ng ([id number])] adhesive AdvReac Severe burning Verified 03/28/19 09:18 skin Review of Systems Review of Systems Narrative: Remainder of complete review of systems is otherwise unremarkable except for that included in the HPI. Patient History Medical History Benign liver cyst Chronic thoracic back pain Depression History of sinus problem Osteoarthritis Pleurisy without effusion Rheumatoid arthritis Surgical History History of cholecystectomy Hx of arthroscopic knee surgery Family History Father Hypertension Diverticulitis Grandfather Heart disease Stroke Diverticulitis Grandmother Hypertension Diabetes mellitus Social History marital status: household members: spouse occupational status: employed Smoking Status: Never smoker alcohol intake: never substance use type: does not use Smoking Status: Never smoker Substance Use Type: does not use Exam Initial Vital Signs Initial Vital Signs: Vital Signs Temperature 98.9 F 02/22/22 19:16 Pulse Rate 114 H 02/22/22 19:16 Respiratory Rate 18 02/22/22 19:16 Blood Pressure 168/74 H 02/22/22 19:16 Pulse Oximetry 99 02/22/22 19:16 General: Healthy appearing, in no acute distress. Able to give a complete and coherent history. Well-nourished well-developed HEENT: Moist mucous membranes, normal sclera with reactive pupils, Neck: No JVD, supple Respiratory: Lungs are clear to auscultation, no wheezing no rales no rhonchi. Full and symmetrical air movement Cardiac: Regular rate and rhythm no murmurs no bruits Abdomen: Soft, significantly tender in the left upper quadrant/mid axillary area and the lower ribs without obvious abnormalities or skin changes. No overt abdominal pain with Good bowel tones, no flank pain Skin: Warm and dry, she has a 3 x 4 cm plaque on the medial aspect of her right calf that is minimally noticeable, no raised edges or palpable abnormality, central clearing with some very mild erythema on around 3/4 of the edges. This does not appear to be a superficial dermal abnormalities such as ringworm or cellulitis. It is not tender to the touch or warm. Neurologic: Grossly neurologically intact with no obvious asymmetries or abnormalities Extremities: No trauma, well perfused Psych: Cooperative, appropriate insight and affect Course Orders Ordered: ED Orders 02/22/22 19:24 EKG-12 Lead Stat 02/22/22 19:35 Urine Culture Stat Urine Microscopic Stat 02/22/22 21:13 Complete Blood Count AUTO DIFF Stat Comprehensive Metabolic Panel Stat Lipase Stat 02/22/22 22:32 CT abdomen pelvis w con Stat Vital Signs Vital signs: Vital Signs - 8 hr 02/22/22 19:16 02/22/22 21:46 02/22/22 21:47 Temperature 98.9 F Pulse Rate 114 H 97 H 96 H Respiratory Rate 18 Blood Pressure 168/74 H 123/56 L Pulse Oximetry 99 100 02/22/22 22:00 02/22/22 22:30 02/22/22 23:00 Temperature Pulse Rate 93 H 106 H 109 H Respiratory Rate Blood Pressure 126/58 L 136/75 Pulse Oximetry 98 100 100 02/22/22 23:30 02/23/22 00:00 Temperature Pulse Rate 101 H 95 H Respiratory Rate Blood Pressure Pulse Oximetry 100 100 Medical Decision Making Lab Data Lab results narrative: 02/08/22 alk phos 171, dec, 2021 AST 62 Remainder of labs were unremarkable Result diagrams: 02/22/22 21:13 02/22/22 21:13 Labs: Lab Results 02/22/22 02/22/22 02/22/22 Range/Units 19:35 21:13 21:13 WBC 8.9 (4.5-11.0) X10^3/uL RBC 4.00 (4.0-5.2) X10^6/uL Hgb 12.6 (12.0-16.0) g/dL Hct 37.4 (36-46) % MCV 93.5 (80-100) fL MCH 31.5 (26-34) PG MCHC 33.7 (30-36) % RDW 15.7 H (11.6-14.8) % Plt Count 342 (150-400) X10^3/uL Neut % (Auto) 79.7 H (50-75) % Lymph % (Auto) 12.7 L (25-40) % [place] % (Auto) 4.5 (3-14) % Eos % (Auto) 2.6 (2-4) % Baso % (Auto) 0.5 (0-2) % Neut # (Auto) 7100 H (1370-3606) /uL Lymph # (Auto) 1100 (8233-6019) /uL [place] # (Auto) 400 (0-900) /uL Eos # (Auto) 200 (0-450) /uL Baso # (Auto) 0 (0-100) /uL Sodium 140 (137-145) mmol/L Potassium 4.3 (3.4-5.1) mmol/L Chloride 102 (98-107) mmol/L Carbon Dioxide 28 (22-32) mmol/L BUN 11 (7-17) mg/dL Creatinine 0.89 (0.52-1.04) mg/dL Estimated GFR > 60.0 (>60) mL/min BUN/Creatinine Ratio 12.4 (6-22) Glucose 91 (70-100) mg/dL Calcium 10.0 (8.4-10.2) mg/dL Total Bilirubin 0.8 (0.2-1.3) mg/dL AST 52 H (14-36) IU/L ALT 47 H (<35) IU/L Alkaline Phosphatase 191 H (38-126) U/L Total Protein 9.1 H (6.3-8.2) g/dL Albumin 5.1 H (3.5-5.0) g/dL Globulin 4.0 (1.7-4.1) g/dL Albumin/Globulin Ratio 1.3 (1.0-2.8) Lipase 57 (23-300) U/L Urine RBC None seen (0-5/HPF) Urine WBC None seen (0-5/HPF) Amorphous Sediment 2+ Urine Bacteria None seen (None) Ur Culture Indicated? Cult not indicated Urine Dip Bedside Urine Glucose Negative Bedside Urine Bilirubin - Negative Bedside Urine Ketone - Negative Urine Specific [place] 1.010 Bedside Urine Occult Blood +/- Bedside Urine pH 7.0 Bedside Urine Protein - Negative Bedside Urine Urobilinogen - Negative Bedside Urine Nitrite - Negative Bedside Urine Leukocytes - Negative Esterase Point of care testing: Urine Dip Bedside Urine Glucose Negative Bedside Urine Bilirubin - Negative Bedside Urine Ketone - Negative Urine Specific [place] 1.010 Bedside Urine Occult Blood +/- Bedside Urine pH 7.0 Bedside Urine Protein - Negative Bedside Urine Urobilinogen - Negative Bedside Urine Nitrite - Negative Bedside Urine Leukocytes - Negative Esterase Imaging Data CT scan - abdomen/pelvis: Radiologist's Impression: ? FINDINGS:? Image quality:? Excellent.? ? Lung bases:? There is a loculated appearing left pleural effusion with associated compressive atelectasis.. Heart:? No significant findings. ? ABDOMEN: Liver:? Unremarkable.? ? Gallbladder:? Status post cholecystectomy.? ? Biliary ducts:? Unremarkable.? ? Pancreas:? Unremarkable.? ? Spleen:? Unremarkable.? ? Adrenal Glands:? Unremarkable.? ? Kidneys and Ureters:? Unremarkable.? ? ? Stomach and Bowel:? Nonspecific short segment of circumferential wall thickening of small bowel in the left mid and upper abdomen.? No evidence for bowel obstruction.? Visualized stomach and colon are unremarkable. ? Peritoneum:? No abnormal intraperitoneal fluid.? No free air.? ? Ventral Wall: ? No hernias.? Abdominal Nodes:? No retroperitoneal or mesenteric adenopathy by size criteria.? Vessels:? Aorta and inferior vena cava are normal in size.? ? PELVIS: Pelvic Organs:? Unremarkable.? ? Bladder:? Mildly distended urinary bladder.? Otherwise unremarkable. Pelvic Nodes: No enlarged lymph nodes.? Miscellaneous: No hernias are seen. ? ? ? Bones:? Unremarkable.? ? ? IMPRESSION:? 1. Small left pleural effusion measuring 8.9 x 2.4 cm in maximum axial cross-sectional dimension with slight loculated appearance.? There is associated compressive atelectasis. ?Otherwise, no evidence for focal airspace disease. ? 2. Nonspecific short segment of circumferential wall thickening of small bowel in the left upper and mid abdomen possibly related to peristalsis.? No adjacent inflammatory changes.? Mild enteritis may have a similar appearance. ? 3. Status post cholecystectomy.? ? ? Dictated by: Jono Brice M.D. on 02/22/2022 at 23:50? [facility] Narrative Medical decision making narrative: 51-year-old woman who presents with left upper quadrant pain that is been worsening over the last number of months with a subsequent COVID infection in December. Labs are fairly benign with the exception of minimally elevated AST, ALT and alkaline phosphatase. Patient does have a follow-up scheduled with Gastroenterology because of prior elevated LFTs and have encouraged her to keep this appointment. She also has a small left pleural effusion unclear if this is new since her recent COVID infection or present previously to explain some the pain she was experiencing in November prior to the COVID infection. CT scan also shows a small section of small bowel nonspecific thickening. May be related to peristalsis however it is suspicious sleep present in the area of her tenderness. At this point certainly not in infection, and not an obstruction or mass. I believe conservative management at this point will be quite appropriate. She has been advised to avoid ibuprofen and is concerned about Tylenol given the liver function changes. Will give her a brief course of 5 mg of oxycodone to use for the pain and ask her to follow-up with primary care physician as well as the medical support specialist. This time there does not appear to be any infection, no indication of acute pancreatitis or other significant left upper quadrant abdominal abnormalities. I see no indication for antibiotics and no indication for hospital admission or additional workup this time. Questions are answered and she is safe for home discharge Discharge Plan Departure Patient Disposition: Home Clinical Impression: Pleurisy, Pleural effusion, Elevated liver enzymes, Abdominal pain, left upper quadrant Instructions: Pleural Effusion Activity Restrictions/Additional Instructions: Thank you for coming in today Your CT scan shows a small collection of fluid around the bottom left lung and I suspect that this is a large part of what is causing her pain. We have given you an incentive spirometer and instructions to help you take big breaths and keep the lower part of your left lung fully inflated to avoid developing pneumonia. You can use 5-10 mg of oxycodone for severe pain as needed Please keep your appointment with your medical support specialist. I have given you copies of the labs from today with slight increases in AST, ALT and alkaline phosphatase as well as the printed result of the CT scan of the abdomen that was done for you [place] your medical support specialist. If you have worsening signs or symptoms please feel free to return to the emergency department Prescriptions: New oxycodone 5 mg tablet 5 - 10 mg PO Q4-6H PRN (Reason: pain) Qty: 14 0RF No Action methotrexate sodium 2.5 mg tablet See Rx Instructions .ROUTE .COMPLEX 0RF Label Comments: take 5 tablets by mouth IN THE MORNING and 5 tablets IN THE EVENING ONE DAY PER WEEK Rx Instructions: 12.5 mg orally am and pm one day per week. (Saturdays) guanfacine 1 mg tablet 2 mg PO BEDTIME 0RF Label Comments: take 1 tablet by mouth every morning then 2 tablets at bedtime AN...(REFER TO PRESCRIPTION NOTES). drospirenone-ethinyl estradiol 3-0.02 mg tablet 1 tab PO QPM 0RF folic acid 800 mcg Tablet 0.8 mg PO DAILY 0RF Probiotic 2 tab PO DAILY 0RF oxycodone-acetaminophen [Percocet] 5-325 mg tablet 1 tab PO Q4-6H PRN (Reason: pain) Qty: 20 0RF ondansetron 4 mg tablet,disintegrating 4 mg PO TID-QID PRN (Reason: nausea and vomiting) Qty: 30 0RF oxycodone-acetaminophen [Percocet] 5-325 mg tablet 1 tab PO Q4-6H PRN (Reason: painful procedure) Qty: 15 0RF lamotrigine 150 mg tablet 150 mg PO BEDTIME 0RF ascorbic acid (vitamin C) [Vitamin C] 500 mg Tablet 500 mg PO DAILY 0RF zinc 50 mg Capsule 50 mg PO DAILY 0RF drospirenone-ethinyl estradiol [JORDAN (28)] 3-0.02 mg Tablet 1 tab PO BEDTIME 0RF meloxicam 15 mg tablet 7.5 mg PO QPM 0RF guanfacine 1 mg tablet 1 mg PO QAM 0RF bupropion HCl 150 mg tablet extended release 24 hr 450 mg PO DAILY 0RF Vitamin B-12 1 tab PO DAILY 0RF Referrals: Jevon Gonzalez DO [Primary Care Provider] -
--- NOTE | 2022-02-22 22:32 | DI.CT.S_ITS ---
PROCEDURE: CT ABDOMEN PELVIS W CON INDICATIONS: Left upper quadrant pain TECHNIQUE: After the administration of intravenous contrast, axial sections acquired from the lung bases to the pubic symphysis. Coronal and sagittal reformats were performed. For radiation dose reduction, the following was used: automated exposure control, adjustment of mA and/or kV according to patient size. COMPARISON: [facility], CT, CT CHEST ABD PEL W CON, 03/20/2019, 17:24. FINDINGS: Image quality: Excellent. Lung bases: There is a loculated appearing left pleural effusion with associated compressive atelectasis.. Heart: No significant findings. ABDOMEN: Liver: Unremarkable. Gallbladder: Status post cholecystectomy. Biliary ducts: Unremarkable. Pancreas: Unremarkable. Spleen: Unremarkable. Adrenal Glands: Unremarkable. Kidneys and Ureters: Unremarkable. Stomach and Bowel: Nonspecific short segment of circumferential wall thickening of small bowel in the left mid and upper abdomen. No evidence for bowel obstruction. Visualized stomach and colon are unremarkable. Peritoneum: No abnormal intraperitoneal fluid. No free air. Ventral Wall: No hernias. Abdominal Nodes: No retroperitoneal or mesenteric adenopathy by size criteria. Vessels: Aorta and inferior vena cava are normal in size. PELVIS: Pelvic Organs: Unremarkable. Bladder: Mildly distended urinary bladder. Otherwise unremarkable. Pelvic Nodes: No enlarged lymph nodes. Miscellaneous: No hernias are seen. Bones: Unremarkable. IMPRESSION: 1. Small left pleural effusion measuring 8.9 x 2.4 cm in maximum axial cross-sectional dimension with slight loculated appearance. There is associated compressive atelectasis. Otherwise, no evidence for focal airspace disease. 2. Nonspecific short segment of circumferential wall thickening of small bowel in the left upper and mid abdomen possibly related to peristalsis. No adjacent inflammatory changes. Mild enteritis may have a similar appearance. 3. Status post cholecystectomy. Dictated by: Jono Brice M.D. on 02/22/2022 at 23:50 Approved by: Jono Brice M.D. on 02/22/2022 at 23:58
[2022-02-23] VITALS: PULSE 95; O2SAT 100
[2022-02-23 00:43] VITALS: BP 126/59; PULSE 92; O2SAT 100
[2022-02-23 01:00] VITALS: BP 100/68; PULSE 94; O2SAT 97
[2022-02-23] MEDS: KETOROLAC 30 MG/ML VIAL 15 MG IV (01:05)
[2022-02-23] MEDS: OXYCODONE IR 5 MG TABLET 10 MG PO (01:06)
[2022-02-23] MEDS: ONDANSETRON 4 MG ODT SL (01:13)
== END 2022-02-23 01:17 | disposition home or self-care (01) ==
PROVIDERS: Emergency Provider Emergency Medicine; PCP Student in an Organized Health Care Education/Training Program
DX: R09.1 Pleurisy (principal); R74.8 Abnormal levels of other serum enzymes; R10.12 Left upper quadrant pain; Z86.16 Personal history of COVID-19
CPT/HCPCS: 36415; 74177; 80053; 81003; 81015; 83690; 85025; 87086; 96374; 99284; J1885; Q9967

== ENCOUNTER 2022-05-21 17:22 | Emergency (ER) | payer OTHER, SELFPAY ==
[2019-03-19 14:02] VITALS: BMI 19.9
[2022-05-21 17:28] VITALS: BP 130/71; PULSE 88; RESP 14; TEMP 36.3; O2SAT 98; BMI 21.1
--- NOTE | 2022-05-21 17:45 | DI.US.S_ITS ---
PROCEDURE: US PERIPH VENOUS LOW EXTREM RT INDICATIONS: Rule out DVT TECHNIQUE: Real-time imaging, as well as color and pulse Doppler interrogation, were performed of the lower extremity deep veins from the inguinal ligament to the popliteal fossa. COMPARISON: None. FINDINGS: The common femoral, femoral and popliteal veins are normally compressible, and free of intraluminal thrombus. Color and pulse Doppler demonstrate normal phasic intraluminal flow. There is normal augmentation response to distal compression maneuver. IMPRESSION: No DVT in the right lower extremity. Dictated by: Conor Hurst M.D. on 05/21/2022 at 19:05 Approved by: Conor Hurst M.D. on 05/21/2022 at 19:06
--- NOTE | 2022-05-21 19:54 | ED.EXTPRO ---
HPI - Extremity Problem General Chief complaint: Extremity Problem,Nontraumatic Stated complaint: Swelling right leg, [facility] wants to rule out DVT Time Seen by Provider: 05/21/22 18:25 Source: patient Mode of arrival: Ambulatory History of Present Illness HPI Narrative: 51-year-old woman with history of rheumatoid arthritis, liver abnormalities with MRCP scheduled on June 04 and colonoscopy scheduled on June 14 presents with right lower extremity increasing redness and pain with concerns for DVT. Patient was seen in mid February with a erythematous circular plaque on the medial aspect of her right calf that had developed after a recent COVID infection that time did not appear to be infectious. Over the interval time this is now spread and in the last number of days she has developing erythema expanding up for calf to approximately mid calf with a distinctive proximal border. She also has some minor erythema on the inner aspect of the left calf.. She denies fever, cough, chills. The upper abdominal pain noted in February has essentially resolved. She has had no additional abdominal pain, vomiting, diarrhea, headaches. No worsening rheumatologic issues swelling or pain in joints. She is followed by Dr. Kelly at [facility] for her rheumatoid arthritis. Related Data Home Medications Medication Instructions Recorded Confirmed Vitamin B-12 1 tab PO DAILY 07/24/18 03/26/21 bupropion HCl 150 mg 24 hr tablet, 450 mg PO DAILY 07/24/18 03/26/21 extended release guanfacine 1 mg tablet 1 mg PO QAM 07/24/18 03/26/21 meloxicam 15 mg tablet 7.5 mg PO QPM 07/24/18 03/26/21 Probiotic 2 tab PO DAILY 03/05/19 03/28/19 drospirenone 3 mg-ethinyl 1 tab PO QPM 03/05/19 03/26/21 estradiol 0.02 mg tablet folic acid 800 mcg tablet 0.8 mg PO DAILY 03/05/19 03/26/21 guanfacine 1 mg tablet 2 mg PO BEDTIME 03/05/19 03/26/21 methotrexate sodium 2.5 mg tablet See Rx Instructions .Route .COMPLEX 03/05/19 03/26/21 ascorbic acid (vitamin C) 500 mg 500 mg PO DAILY 03/26/21 03/26/21 tablet (Vitamin C) drospirenone 3 mg-ethinyl 1 tab PO BEDTIME 03/26/21 03/26/21 estradiol 0.02 mg tablet (JORDAN (28)) lamotrigine 150 mg tablet 150 mg PO BEDTIME 03/26/21 03/26/21 zinc 50 mg capsule 50 mg PO DAILY 03/26/21 03/26/21 Previous Rx's Medication Instructions Recorded ondansetron 4 mg disintegrating 4 mg PO TID-QID PRN nausea and 03/05/19 tablet vomiting #30 tabs oxycodone-acetaminophen 5 mg-325 1 tab PO Q4-6H PRN pain #20 tabs 03/05/19 mg tablet (Percocet) oxycodone-acetaminophen 5 mg-325 1 tab PO Q4-6H PRN painful 03/14/19 mg tablet (Percocet) procedure #15 tabs oxycodone 5 mg tablet 5 - 10 mg PO Q4-6H PRN pain #14 02/23/22 tabs cephalexin 500 mg capsule 500 mg PO TID #21 caps 05/21/22 Allergies Allergy/AdvReac Type Severity Reaction Status Date / Time amoxicillin Allergy Unknown HIVES Verified 03/28/19 09:18 clavulanic acid Allergy Unknown STOMACH Verified 03/28/19 09:18 erythromycin base Allergy Unknown STOMACH Verified 03/28/19 09:18 PROBLEMS bacitracin Allergy Rash Verified 03/26/21 07:14 [From Neosporin ([id number])] fluoxetine Allergy Difficulty Verified 03/26/21 07:14 Swallowing latex Allergy Rash Verified 03/26/21 07:14 meloxicam Allergy Verified 02/22/22 19:24 neomycin Allergy Rash Verified 03/26/21 07:14 [From Neosporin ([id number])] polymyxin B Allergy Hallucinati Verified 03/26/21 07:14 [From Neosporin ng ([id number])] adhesive AdvReac Severe burning Verified 03/28/19 09:18 skin Review of Systems Review of Systems Narrative: Remainder of complete review of systems is otherwise unremarkable except for that included in the HPI. Patient History Medical History Benign liver cyst Chronic thoracic back pain Depression History of sinus problem Osteoarthritis Pleurisy without effusion Rheumatoid arthritis Surgical History History of cholecystectomy Hx of arthroscopic knee surgery Family History Father Hypertension Diverticulitis Grandfather Heart disease Stroke Diverticulitis Grandmother Hypertension Diabetes mellitus Social History marital status: household members: spouse occupational status: employed Smoking Status: Never smoker alcohol intake: never substance use type: does not use Smoking Status: Never smoker Substance Use Type: does not use Exam Initial Vital Signs Initial Vital Signs: Vital Signs Temperature 97.3 F L 05/21/22 17:28 Pulse Rate 88 05/21/22 17:28 Respiratory Rate 14 05/21/22 17:28 Blood Pressure 130/71 05/21/22 17:28 Pulse Oximetry 98 05/21/22 17:28 Oxygen Delivery Method 05/21/22 17:28 General: Healthy appearing, in no acute distress. Able to give a complete and coherent history. Well-nourished well-developed HEENT: Moist mucous membranes, normal sclera with reactive pupils, Neck: No JVD, supple Respiratory: Lungs are clear to auscultation, no wheezing no rales no rhonchi. Full and symmetrical air movement Cardiac: Regular rate and rhythm no murmurs no bruits Abdomen: Soft, nontender, good bowel tones, no flank pain Skin: Right lower extremity with erythema from the toes to the mid calf with a sharply demarcated proximal edge slightly warm to the touch, no obvious skin breakdown she has got some mild chronic venous stasis changes over the anterior portion of the right thompson. There is no abrasion, skin breakdown, obvious wound your puncture source. There is 3 x 4 plaque on the medial aspect of the left calf that is mildly erythematous, looks more like venous stasis changes, not painful not warm to the touch and I do not believe that the left calf represents cellulitis. Neurologic: Grossly neurologically intact with no obvious asymmetries or abnormalities Extremities: No trauma, well perfused Psych: Cooperative, appropriate insight and affect Course Orders Ordered: ED Orders 05/21/22 17:45 US periph venous low extrem rt Stat 05/21/22 20:19 CRP [C-Reactive Protein Quant] Stat Complete Blood Count AUTO DIFF Stat Comprehensive Metabolic Panel Stat Erythrocyte Sedimentation Rate Stat Procalcitonin Stat Discontinued Medications Ceftriaxone Sodium 2,000 mg/ (Sodium Chloride) 100 mls @ 200 mls/hr IV NOW ONE Stop: 05/21/22 20:15 Last Infusion: 05/21/22 21:03 Dose: 0 mls/hr Documented By: Admin: 05/21/22 20:29 Dose: 200 mls/hr Documented By: YADY Vital Signs Vital signs: Vital Signs - 8 hr 05/21/22 17:28 05/21/22 21:59 Temperature 97.3 F L Pulse Rate 88 88 Respiratory Rate 14 18 Blood Pressure 130/71 131/61 Pulse Oximetry 98 99 Oxygen Delivery Method Room Air Room Air MDM - Extremity (Nontraumatic) Lab Data Result diagrams: 05/21/22 20:19 05/21/22 20:19 Labs: Lab Results 05/21/22 05/21/22 Range/Units 20:19 20:19 WBC 5.0 (4.5-11.0) X10^3/uL RBC 4.06 (4.0-5.2) X10^6/uL Hgb 12.5 (12.0-16.0) g/dL Hct 38.0 (36-46) % MCV 93.6 (80-100) fL MCH 30.8 (26-34) PG MCHC 32.9 (30-36) % RDW 14.9 H (11.6-14.8) % Plt Count 292 (150-400) X10^3/uL Neut % (Auto) 61.3 (50-75) % Lymph % (Auto) 27.3 (25-40) % Knox % (Auto) 7.0 (3-14) % Eos % (Auto) 3.4 (2-4) % Baso % (Auto) 1.0 (0-2) % Neut # (Auto) 3100 (4246-8280) /uL Lymph # (Auto) 1400 (0348-1097) /uL Knox # (Auto) 400 (0-900) /uL Eos # (Auto) 200 (0-450) /uL Baso # (Auto) 100 (0-100) /uL ESR 23 H (0-20) MM/HR Sodium 141 (137-145) mmol/L Potassium 4.3 (3.4-5.1) mmol/L Chloride 102 (98-107) mmol/L Carbon Dioxide 30 (22-32) mmol/L BUN 14 (7-17) mg/dL Creatinine 0.99 (0.52-1.04) mg/dL Estimated GFR > 60 (>60) mL/min BUN/Creatinine Ratio 14.1 (6-22) Glucose 91 (70-100) mg/dL Calcium 10.4 H (8.4-10.2) mg/dL Total Bilirubin 0.5 (0.2-1.3) mg/dL AST 43 H (14-36) IU/L ALT 59 H (<35) IU/L Alkaline Phosphatase 216 H (38-126) U/L C-Reactive Protein 1.1 H (<1.0) mg/dL Total Protein 8.7 H (6.3-8.2) g/dL Albumin 5.3 H (3.5-5.0) g/dL Globulin 3.4 (1.7-4.1) g/dL Albumin/Globulin Ratio 1.6 (1.0-2.8) Procalcitonin 0.05 (<0.5) ng/mL MDM Narrative Medical decision making narrative: 51-year-old woman with increasing redness warmth and tenderness developing in the right foot up to mid calf. Initially started with an erythematous blanchable mildly tender plaque. At this point it looks like she is developing cellulitis. White count and procalcitonin are low. Possibility of vasculitic type reaction is certainly entertained. She is given 2 g of ceftriaxone in the emergency department. There is no evidence of sepsis or other systemic illness at this time. Will have her continue with 7 days of cephalexin. Will ask her to follow-up with her primary care physician. If symptoms do not improve next step in diagnosing this issue would likely be a biopsy. Questions are answered and she is safe for home discharge Discharge Plan Departure Patient Disposition: Home Clinical Impression: Cellulitis of leg, right Instructions: DI for Cellulitis -- Adult Activity Restrictions/Additional Instructions: Thank you for coming in today I think there are multiple issues going on with the rash over your legs. I am not sure with the inciting rash was and I am glad that you were seen by her credit reference clerk. I a.m. fairly sure that the worsening erythema over the last air to is a complicating cellulitis. There does not appear to be abscess development nor systemic infection. You were given ceftriaxone in the emergency department on going to have you complete a course of 7 days of cephalexin. If you continue to have skin symptoms in the leg, I would recommend following up with your credit reference clerk again. The possibility of vasculitic lesion or a complication of your venous stasis issues are possible. If you note in the next 24-48 hours that your having increasing redness, fevers pain or new findings you do need to return to the emergency department I hope you feel better Prescriptions: New cephalexin 500 mg capsule 500 mg PO TID Qty: 21 0RF No Action methotrexate sodium 2.5 mg tablet See Rx Instructions .ROUTE .COMPLEX Label Comments: take 5 tablets by mouth IN THE MORNING and 5 tablets IN THE EVENING ONE DAY PER WEEK Rx Instructions: 12.5 mg orally am and pm one day per week. (Saturdays) guanfacine 1 mg tablet 2 mg PO BEDTIME Label Comments: take 1 tablet by mouth every morning then 2 tablets at bedtime AN...(REFER TO PRESCRIPTION NOTES). drospirenone-ethinyl estradiol 3-0.02 mg tablet 1 tab PO QPM folic acid 800 mcg Tablet 0.8 mg PO DAILY Probiotic 2 tab PO DAILY oxycodone-acetaminophen [Percocet] 5-325 mg tablet 1 tab PO Q4-6H PRN (Reason: pain) Qty: 20 0RF ondansetron 4 mg tablet,disintegrating 4 mg PO TID-QID PRN (Reason: nausea and vomiting) Qty: 30 0RF oxycodone-acetaminophen [Percocet] 5-325 mg tablet 1 tab PO Q4-6H PRN (Reason: painful procedure) Qty: 15 0RF lamotrigine 150 mg tablet 150 mg PO BEDTIME ascorbic acid (vitamin C) [Vitamin C] 500 mg Tablet 500 mg PO DAILY zinc 50 mg Capsule 50 mg PO DAILY drospirenone-ethinyl estradiol [JORDAN (28)] 3-0.02 mg Tablet 1 tab PO BEDTIME oxycodone 5 mg tablet 5 - 10 mg PO Q4-6H PRN (Reason: pain) Qty: 14 0RF meloxicam 15 mg tablet 7.5 mg PO QPM guanfacine 1 mg tablet 1 mg PO QAM bupropion HCl 150 mg tablet extended release 24 hr 450 mg PO DAILY Vitamin B-12 1 tab PO DAILY Referrals: Jevon Gonzalez DO [Primary Care Provider] -
[2022-05-21 20:25] LABS: Add Manual Diff / Slide Review NO; Basophils Absolute Auto 100 /uL (0-100); Eosinophils Absolute Auto 200 /uL (0-450); Eosinophils Percent Auto 3.4 % (2-4); Hemoglobin 12.5 g/dL (12.0-16.0); Lymphocytes Absolute Auto 1400 /uL (1100-4500); Lymphocytes Percent Auto 27.3 % (25-40); Mean Corpuscular HGB Conc 32.9 % (30-36); Mean Corpuscular Hemoglobin 30.8 PG (26-34); Mean Corpuscular Volume 93.6 fL (80-100); Monocytes Absolute Auto 400 /uL (0-900); Neutrophils Absolute Auto 3100 /uL (1500-7000); Neutrophils Percent Auto 61.3 % (50-75); Platelet Count 292 X10^3/uL (150-400); Red Blood Cell Count 4.06 X10^6/uL (4.0-5.2); Red Cell Distribution Width 14.9 % (11.6-14.8)
[2022-05-21] MEDS: cefTRIAXone 2,000 MG in SODIUM CHLORIDE 0.9% 100 ML 200 MG IV (20:29)
[2022-05-21 20:59] LABS: Alanine Aminotransferase 59 IU/L (<35); Albumin 5.3 g/dL (3.5-5.0); Albumin Globulin Ratio 1.6 (1.0-2.8); Alkaline Phosphatase 216 U/L (38-126); Aspartate Aminotransferase 43 IU/L (14-36); BUN Creatinine Ratio 14.1 (6-22); Bilirubin Total 0.5 mg/dL (0.2-1.3); Blood Urea Nitrogen 14 mg/dL (7-17); C-Reactive Protein Quant 1.1 mg/dL (<1.0); Calcium 10.4 mg/dL (8.4-10.2); Carbon Dioxide 30 mmol/L (22-32); Chloride 102 mmol/L (98-107); Estimated Glomerular Filt Rate > 60 mL/min (>60); Globulin 3.4 g/dL (1.7-4.1); Glucose 91 mg/dL (70-100); HEMOLYSIS < 15 (0-50); Potassium 4.3 mmol/L (3.4-5.1); Sodium 141 mmol/L (137-145); Total Protein 8.7 g/dL (6.3-8.2)
[2022-05-21 21:09] LABS: Erythrocyte Sedimentation Rate 23 MM/HR (0-20)
[2022-05-21 21:13] LABS: Procalcitonin 0.05 ng/mL (<0.5)
[2022-05-21 21:59] VITALS: BP 131/61; PULSE 88; RESP 18; O2SAT 99
== END 2022-05-21 22:36 | disposition home or self-care (01) ==
PROVIDERS: Emergency Provider Emergency Medicine; PCP Student in an Organized Health Care Education/Training Program
DX: L03.115 Cellulitis of right lower limb (principal)
CPT/HCPCS: 36415; 80053; 84145; 85025; 85651; 86140; 93971; 96365; 99284; J0696

== ENCOUNTER → 2022-11-18 13:32 | Outpatient (CLI) | payer OTHER, SELFPAY ==
[2019-03-19 14:02] VITALS: BMI 19.9
--- NOTE | 2022-11-18 13:35 | DI.ECHO.S_ITS ---
[place] +---------+ [facility] +---------+ : : [address] : : : : [id number] : : : : Phone: [phone]---------+ Echocardiogram Report + + :Name: LOU ELIZABETH Study Date: 11/18/2022 Height: 67 in : :[facility] ReadingLocation: Weight: 127 lb : : Gender: Female BSA: 1.7 m2 : :: 1970 Age: 52 yrs BP: 139/88 mmHg: :Reason For Study: Bilateral leg edema : :Ordering Physician: RAYMUNDO, : :ROLLY Performed By: Gabi Mcclure : :Referring: ROLLY RODRIGUEZ : + + Interpretation Summary 1) Normal left ventricular thickness, size, and systolic function (EF 60-65%). 2) Normal right ventricular size and function. 3) No significant valvular abnormalities. 4) No prior Echo available for comparison. Procedure: A two-dimensional transthoracic echocardiogram with color flow and Doppler was performed. The patient was in sinus rhythm with heart rates between 76-89 bpm during the exam. Left Ventricle: The left ventricle is normal in size and wall thickness. The ejection fraction is estimated to be 60-65%. There are no obvious focal wall motion abnormalities noted but poor endocardial definition reduces the sensitivity for the detection of such. Diastolic parameters suggest probable normal left ventricular diastolic function and normal filling pressures. Right Ventricle: The right ventricle is normal in size and function. Atria: The left atrial size is normal. Right atrial size is normal. There is no Doppler evidence for an interatrial shunt. Mitral Valve: The mitral valve is normal in structure and function. There is trace mitral regurgitation. Aortic Valve: The aortic valve is normal in structure and function. There is no aortic valve stenosis. There is no aortic regurgitation. Tricuspid Valve: The tricuspid valve is normal in structure and function. There is a trace or physiologic amount of tricuspid regurgitation. Pulmonary artery pressures cannot be estimated because of the lack of a measurable TR jet velocity. Pulmonic Valve: The pulmonic valve leaflets are thin and pliable; valve motion is normal. There is no pulmonic valvular regurgitation. Great Vessels: The aortic root is normal size. The dimensions of the ascending aorta are normal. The IVC is of normal diameter and collapses greater than 50% with a sniff. This suggests a low right atrial pressure of 3 mm Hg. The IVC has a measurement of 1.9 mm. Pericardium/ Pleura There is no pericardial effusion. There is a moderate left-sided pleural effusion. MMode/2D Measurements & Calculations LVIDd: 3.4 cm LVOT diam: 1.9 cm LVIDs: 2.1 cm Ao root diam: 3.1 cm FS: 38.2 % asc Aorta Diam: 2.5 cm EPSS: 0.50 cm IVSd: 0.70 cm LVPWd: 0.70 cm LV mckeon. diameter/BSA (cm/m^2): 2.0 LV sys. diameter/BSA (cm/m^2): 1.3 LA A2 area: 14.0 cm2 RA long axis: 3.9 cm LA A4 area: 13.7 cm2 RA area: 11.2 cm2 LA length (vol): 4.4 cm RA vol: 27.6 ml LA vol: 36.8 ml RA : 16.6 ml/m2 LA vol index: 22.1 ml/m2 LVLs ap4: 4.7 cm LVLd ap2: 7.0 cm LVLs ap2: 5.5 cm TAPSE_phl: 2.6 cm Doppler Measurements & Calculations Ao V2 max: 105.0 cm/sec LVOT Max Paresh: 86.8 cm/sec Ao V2 mean: 70.8 cm/sec LV V1 max P.0 mmHg Ao max P.0 mmHg LV V1 VTI: 17.5 cm Ao mean P.0 mmHg GLORIA(I,D): 2.3 cm2 Ao V2 VTI: 21.8 cm GLORIA(V,D): 2.3 cm2 sev ratio: 0.80 GLORIA indexed to BSA (cm^2/m^2): 1.4 MV E max paresh: 96.3 cm/sec TR max paresh: 142.3 cm/sec MV A max paresh: 78.8 cm/sec TR max P.1 mmHg MV E/A: 1.2 PA V2 max: 97.0 cm/sec Med Peak E' Paresh: 11.9 cm/sec PA V2 mean: 69.4 cm/sec E/E' med: 8.1 PA mean P.0 mmHg Lat Peak E' Paresh: 14.0 cm/sec E/E' lat: 6.9 E/e' average: 7.5 MV dec time: 0.17 sec MVA(VTI): 2.2 cm2 MV V2 mean: 51.0 cm/sec SV(LVOT): 49.5 ml MV mean P.0 mmHg MV V2 VTI: 22.0 cm AV VR_phl: 0.83 GLORIA(VTI)/BSA_phl: 1.1 Reading Physician:03:54 PM
== END ==
PROVIDERS: PCP Student in an Organized Health Care Education/Training Program; Referring Provider Internal Medicine Cardiovascular Disease; Visit Provider Internal Medicine Cardiovascular Disease
DX: J90 Pleural effusion, not elsewhere classified (principal); R60.0 Localized edema
CPT/HCPCS: 93306

== ENCOUNTER 2023-06-20 15:41 | Emergency (ER) | payer OTHER, SELFPAY ==
[2019-03-19 14:02] VITALS: BMI 19.9
[2023-06-20 15:43] VITALS: BP 134/60; PULSE 96; RESP 18; TEMP 36.8; O2SAT 100; BMI 20.7
--- NOTE | 2023-06-20 17:29 | ED.EYEPROB ---
HPI - Eye Problem <Asha Ruiz PA-C - Last Filed: 06/20/23 18:42> General Chief complaint: Eye Problems Stated complaint: Eye inj Time Seen by Provider: 06/20/23 16:49 Source: patient Mode of arrival: Ambulatory History of Present Illness HPI Narrative: 52-year-old female presents to the ED with 2 days of right lower eyelid irritation. Patient states that she might have gotten a piece of cheese when she was trying to rub her eye yesterday that could have caused irritation. Patient reports some irritation and burning to the lower right eyelid. Patient denies any vision changes, discharge, eye pain. Patient denies fever, chills. Related Data Home Medications Medication Instructions Recorded Confirmed Vitamin B-12 1 tab PO DAILY 07/24/18 03/26/21 bupropion HCl 150 mg 24 hr tablet, 450 mg PO DAILY 07/24/18 03/26/21 extended release guanfacine 1 mg tablet 1 mg PO QAM 07/24/18 03/26/21 meloxicam 15 mg tablet 7.5 mg PO QPM 07/24/18 03/26/21 Probiotic 2 tab PO DAILY 03/05/19 03/28/19 drospirenone 3 mg-ethinyl 1 tab PO QPM 03/05/19 03/26/21 estradiol 0.02 mg tablet folic acid 800 mcg tablet 0.8 mg PO DAILY 03/05/19 03/26/21 guanfacine 1 mg tablet 2 mg PO BEDTIME 03/05/19 03/26/21 methotrexate sodium 2.5 mg tablet See Rx Instructions .Route .COMPLEX 03/05/19 03/26/21 ascorbic acid (vitamin C) 500 mg 500 mg PO DAILY 03/26/21 03/26/21 tablet (Vitamin C) drospirenone 3 mg-ethinyl 1 tab PO BEDTIME 03/26/21 03/26/21 estradiol 0.02 mg tablet (JORDAN (28)) lamotrigine 150 mg tablet 150 mg PO BEDTIME 03/26/21 03/26/21 zinc 50 mg capsule 50 mg PO DAILY 03/26/21 03/26/21 Previous Rx's Medication Instructions Recorded ondansetron 4 mg disintegrating 4 mg PO TID-QID PRN nausea and 03/05/19 tablet vomiting #30 tabs oxycodone-acetaminophen 5 mg-325 1 tab PO Q4-6H PRN pain #20 tabs 03/05/19 mg tablet (Percocet) oxycodone-acetaminophen 5 mg-325 1 tab PO Q4-6H PRN painful 03/14/19 mg tablet (Percocet) procedure #15 tabs oxycodone 5 mg tablet 5 - 10 mg PO Q4-6H PRN pain #14 02/23/22 tabs cephalexin 500 mg capsule 500 mg PO TID #21 caps 05/21/22 Allergies Allergy/AdvReac Type Severity Reaction Status Date / Time amoxicillin Allergy Unknown HIVES Verified 06/20/23 15:47 clavulanic acid Allergy Unknown STOMACH Verified 06/20/23 15:47 erythromycin base Allergy Unknown STOMACH Verified 06/20/23 15:47 PROBLEMS bacitracin Allergy Rash Verified 06/20/23 15:47 [From Neosporin ([id number])] fluoxetine Allergy Difficulty Verified 06/20/23 15:47 Swallowing latex Allergy Rash Verified 06/20/23 15:47 meloxicam Allergy Verified 06/20/23 15:47 neomycin Allergy Rash Verified 06/20/23 15:47 [From Neosporin ([id number])] polymyxin B Allergy Hallucinati Verified 06/20/23 15:47 [From Neosporin ng ([id number])] adhesive AdvReac Severe burning Verified 06/20/23 15:47 skin Review of Systems <Asha Ruiz PA-C - Last Filed: 06/20/23 18:42> Review of Systems ROS Unobtainable: All systems reviewed & are unremarkable except as noted in HPI and below Constitutional Constitutional: Denies chills, Denies fatigue, Denies fever(s), Denies frequent falls, Denies lethargy and Denies weakness Eyes Eyes: Reports as per HPI, Denies change in vision, Denies eye discharge, Reports irritation and Denies loss of vision ENT Ears, Nose, Mouth, and Throat: Denies change in voice, Denies dizziness, Denies neck pain, Denies sore throat and Denies throat swelling Cardiovascular Cardiovascular: Denies chest pain, Denies irregular heart rhythm, Denies lightheadedness, Denies palpitations, Denies dyspnea, Denies dyspnea on exertion and Denies orthopnea Respiratory Respiratory: Denies cough, Denies dyspnea, Denies dyspnea on exertion and Denies wheezing Gastrointestinal Gastrointestinal: Denies abdominal pain, Denies change in bowel habits, Denies diarrhea, Denies nausea and Denies vomiting Genitourinary Genitourinary: Denies hematuria, Denies flank pain, Denies urinary incontinence and Denies urinary urgency Musculoskeletal Musculoskeletal: Denies back pain, Denies muscle weakness, Denies neck pain, Denies numbness and Denies tingling Integumentary/Breasts Skin/Breast: Denies pruritus, Denies erythema, Denies rash and Denies wounds Neurologic Neurologic: Denies behavioral changes, Denies confusion, Denies dizziness, Denies frequent falls, Denies loss of vision, Denies numbness, Denies tingling and Denies weakness Psychiatric Psychiatric: Denies anxiety, Denies behavioral changes, Denies confusion, Denies depression, Denies homicidal ideation and Denies suicidal ideation Endocrine Endocrine: Denies fatigue, Denies flushing and Denies palpitations Hematologic/Lymphatic Hematologic/Lymphatic: Denies easy bruising Allergic/Immunologic Allergic/Immunologic: Denies urticaria, Denies throat swelling and Denies wheezing Patient History <Asha Ruiz PA-C - Last Filed: 06/20/23 18:42> Medical History Benign liver cyst Chronic thoracic back pain Depression History of sinus problem Osteoarthritis Pleurisy without effusion Rheumatoid arthritis Surgical History History of cholecystectomy Hx of arthroscopic knee surgery Family History Father Hypertension Diverticulitis Grandfather Heart disease Stroke Diverticulitis Grandmother Hypertension Diabetes mellitus Social History marital status: household members: spouse occupational status: employed Smoking Status: Never smoker alcohol intake: never substance use type: does not use Smoking Status: Never smoker Substance Use Type: does not use Exam <Asha Ruiz PA-C - Last Filed: 06/20/23 18:42> Narrative Exam Narrative: Const General:?cooperative, healthy appearing and comfortable HENAL Head:?normal to inspection Ears:?hearing grossly normal bilaterally Nose:?external nose normal Face and sinus:?normal facial exam and sinuses nontender Mouth:?oral mucosae normal Throat:?posterior oropharynx normal Eyes General: There is a blocked duct in the right lower eyelid, consistent with chalazion. There is mild erythema surrounding the area. No eye discharge. No conjunctival injection. Vision is grossly normal. No pain with extraocular movements. Neck Neck:?normal visual inspection and no lymphadenopathy noted Resp Effort & Inspection:?normal respiratory effort Auscultation:?clear to auscultation bilaterally Cardio Rate:?regular rate Rhythm:?regular rhythm Neuro General:?patient alert, patient awake and patient oriented x3 Initial Vital Signs Initial Vital Signs: Vital Signs Temperature 98.3 F 06/20/23 15:43 Pulse Rate 96 H 06/20/23 15:43 Respiratory Rate 18 06/20/23 15:43 Blood Pressure 134/60 06/20/23 15:43 Pulse Oximetry 100 06/20/23 15:43 Oxygen Delivery Method Room Air 06/20/23 15:43 <DO Rachel Zarate Last Filed: 06/21/23 08:26> Initial Vital Signs Initial Vital Signs: Vital Signs Temperature 98.3 F 06/20/23 15:43 Pulse Rate 96 H 06/20/23 15:43 Respiratory Rate 18 06/20/23 15:43 Blood Pressure 134/60 06/20/23 15:43 Pulse Oximetry 100 06/20/23 15:43 Oxygen Delivery Method Room Air 06/20/23 15:43 Course <RADHA Celestin Last Filed: 06/20/23 18:42> Vital Signs Vital signs: Vital Signs - 8 hr 06/20/23 15:43 06/20/23 17:30 Temperature 98.3 F Pulse Rate 96 H 81 Respiratory Rate 18 19 Blood Pressure 134/60 132/64 Pulse Oximetry 100 97 Oxygen Delivery Method Room Air Room Air <DO Rachel Zarate Last Filed: 06/21/23 08:26> Vital Signs Vital signs: Vital Signs - 8 hr 06/20/23 15:43 06/20/23 17:30 Temperature 98.3 F Pulse Rate 96 H 81 Respiratory Rate 18 19 Blood Pressure 134/60 132/64 Pulse Oximetry 100 97 Oxygen Delivery Method Room Air Room Air MDM - Eye Problem <RADHA Celestin Last Filed: 06/20/23 18:42> MDM Narrative Medical decision making narrative: 52-year-old female presents to the ED with 2 days of right lower eyelid irritation. Physical exam is most consistent with a chalazion of the right lower eyelid. There is mild erythema of the lower eyelid, however low suspicion for periorbital cellulitis. Recommend warm compresses several times a day for the next few days. Patient agrees to follow-up with ophthalmology if symptoms persist after 5-7 days. ED return precautions were discussed with patient. Patient verbalized understanding. Medical records reviewed: Yes Discharge Plan Departure Patient Disposition: Home Clinical Impression: Chalazion Instructions: DI for Chalazion Activity Restrictions/Additional Instructions: You were evaluated in the ED today for right eye irritation. It appears that you have a blocked duct, also known as a chalazion. It does not appear to be infected at this time. You may apply hot compresses several times a day for 5-7 days. If your symptoms do not improve, please follow-up with [facility] at [phone]. Please return to the ED if you have worsening symptoms, you note worsening redness around the eyelid. Prescriptions: No Action methotrexate sodium 2.5 mg tablet See Rx Instructions .ROUTE .COMPLEX Patient Comments: take 5 tablets by mouth IN THE MORNING and 5 tablets IN THE EVENING ONE DAY PER WEEK Rx Instructions: 12.5 mg orally am and pm one day per week. (Saturdays) guanfacine 1 mg tablet 2 mg PO BEDTIME Patient Comments: take 1 tablet by mouth every morning then 2 tablets at bedtime AN...(REFER TO PRESCRIPTION NOTES). drospirenone-ethinyl estradiol 3-0.02 mg tablet 1 tab PO QPM folic acid 800 mcg Tablet 0.8 mg PO DAILY Probiotic 2 tab PO DAILY oxycodone-acetaminophen [Percocet] 5-325 mg tablet 1 tab PO Q4-6H PRN (Reason: pain) Qty: 20 0RF ondansetron 4 mg tablet,disintegrating 4 mg PO TID-QID PRN (Reason: nausea and vomiting) Qty: 30 0RF oxycodone-acetaminophen [Percocet] 5-325 mg tablet 1 tab PO Q4-6H PRN (Reason: painful procedure) Qty: 15 0RF lamotrigine 150 mg tablet 150 mg PO BEDTIME ascorbic acid (vitamin C) [Vitamin C] 500 mg Tablet 500 mg PO DAILY zinc 50 mg Capsule 50 mg PO DAILY drospirenone-ethinyl estradiol [JORDAN (28)] 3-0.02 mg Tablet 1 tab PO BEDTIME oxycodone 5 mg tablet 5 - 10 mg PO Q4-6H PRN (Reason: pain) Qty: 14 0RF cephalexin 500 mg capsule 500 mg PO TID Qty: 21 0RF meloxicam 15 mg tablet 7.5 mg PO QPM guanfacine 1 mg tablet 1 mg PO QAM bupropion HCl 150 mg tablet extended release 24 hr 450 mg PO DAILY Vitamin B-12 1 tab PO DAILY Referrals: Jevon Gonzalez DO [Primary Care Provider] - Stand Alone Forms: Patient Portal/API <Josefina Palencia DO - Last Filed: 06/21/23 08:26> Cosign ED Attending Cosignature Attestation: I was immediately available in the department for consultation. Documentation has been reviewed.
[2023-06-20 17:30] VITALS: BP 132/64; PULSE 81; RESP 19; O2SAT 97
== END 2023-06-20 17:31 | disposition home or self-care (01) ==
PROVIDERS: Emergency Provider Student in an Organized Health Care Education/Training Program; PCP Student in an Organized Health Care Education/Training Program
DX: H00.12 Chalazion right lower eyelid (principal)
CPT/HCPCS: 99281; 99282

== ENCOUNTER 2023-06-21 13:42 | Emergency (ER) | payer OTHER, SELFPAY ==
[2019-03-19 14:02] VITALS: BMI 19.9
[2023-06-21 14:13] VITALS: BP 137/67; PULSE 85; RESP 16; TEMP 37.2; O2SAT 100; BMI 20.7
--- NOTE | 2023-06-21 18:48 | ED.EYEPROB ---
HPI - Eye Problem <Asha Ruiz PA-C - Last Filed: 06/21/23 18:53> General Chief complaint: Eye Problems Stated complaint: R/ eye problem was here T-1 Time Seen by Provider: 06/21/23 15:37 Source: patient Mode of arrival: Ambulatory History of Present Illness HPI Narrative: 52-year-old female presents to the ED with worsening eye irritation, discharge. Patient was seen in the ED yesterday for a chalazion, discharged with recommendation for warm compresses. Patient has been applying the warm compresses, states that she noted and I discharge, her eye was crusted shut this morning. Patient denies any pain with intra-ocular movements, denies visual changes. Related Data Home Medications Medication Instructions Recorded Confirmed Vitamin B-12 1 tab PO DAILY 07/24/18 03/26/21 bupropion HCl 150 mg 24 hr tablet, 450 mg PO DAILY 07/24/18 03/26/21 extended release guanfacine 1 mg tablet 1 mg PO QAM 07/24/18 03/26/21 meloxicam 15 mg tablet 7.5 mg PO QPM 07/24/18 03/26/21 Probiotic 2 tab PO DAILY 03/05/19 03/28/19 drospirenone 3 mg-ethinyl 1 tab PO QPM 03/05/19 03/26/21 estradiol 0.02 mg tablet folic acid 800 mcg tablet 0.8 mg PO DAILY 03/05/19 03/26/21 guanfacine 1 mg tablet 2 mg PO BEDTIME 03/05/19 03/26/21 methotrexate sodium 2.5 mg tablet See Rx Instructions .Route .COMPLEX 03/05/19 03/26/21 ascorbic acid (vitamin C) 500 mg 500 mg PO DAILY 03/26/21 03/26/21 tablet (Vitamin C) drospirenone 3 mg-ethinyl 1 tab PO BEDTIME 03/26/21 03/26/21 estradiol 0.02 mg tablet (JORDAN (28)) lamotrigine 150 mg tablet 150 mg PO BEDTIME 03/26/21 03/26/21 zinc 50 mg capsule 50 mg PO DAILY 03/26/21 03/26/21 Previous Rx's Medication Instructions Recorded ondansetron 4 mg disintegrating 4 mg PO TID-QID PRN nausea and 03/05/19 tablet vomiting #30 tabs oxycodone-acetaminophen 5 mg-325 1 tab PO Q4-6H PRN pain #20 tabs 03/05/19 mg tablet (Percocet) oxycodone-acetaminophen 5 mg-325 1 tab PO Q4-6H PRN painful 03/14/19 mg tablet (Percocet) procedure #15 tabs oxycodone 5 mg tablet 5 - 10 mg PO Q4-6H PRN pain #14 02/23/22 tabs cephalexin 500 mg capsule 500 mg PO TID #21 caps 05/21/22 moxifloxacin 0.5 % viscous eye See Rx Instructions .Route 06/21/23 drops .COMPLEX #3 mL Allergies Allergy/AdvReac Type Severity Reaction Status Date / Time amoxicillin Allergy Unknown HIVES Verified 06/20/23 15:47 clavulanic acid Allergy Unknown STOMACH Verified 06/20/23 15:47 erythromycin base Allergy Unknown STOMACH Verified 06/20/23 15:47 PROBLEMS bacitracin Allergy Rash Verified 06/20/23 15:47 [From Neosporin ([id number])] fluoxetine Allergy Difficulty Verified 06/20/23 15:47 Swallowing latex Allergy Rash Verified 06/20/23 15:47 meloxicam Allergy Verified 06/20/23 15:47 neomycin Allergy Rash Verified 06/20/23 15:47 [From Neosporin ([id number])] polymyxin B Allergy Hallucinati Verified 06/20/23 15:47 [From Neosporin ng ([id number])] adhesive AdvReac Severe burning Verified 06/20/23 15:47 skin Review of Systems <Asha Ruiz PA-C - Last Filed: 06/21/23 18:53> Review of Systems ROS Unobtainable: All systems reviewed & are unremarkable except as noted in HPI and below Constitutional Constitutional: Denies chills, Denies fatigue, Denies fever(s), Denies frequent falls, Denies lethargy and Denies weakness Eyes Eyes: Denies change in vision, Reports eye discharge, Reports irritation and Denies loss of vision ENT Ears, Nose, Mouth, and Throat: Denies change in voice, Denies dizziness, Denies neck pain, Denies sore throat and Denies throat swelling Cardiovascular Cardiovascular: Denies chest pain, Denies irregular heart rhythm, Denies lightheadedness, Denies palpitations, Denies dyspnea, Denies dyspnea on exertion and Denies orthopnea Respiratory Respiratory: Denies cough, Denies dyspnea, Denies dyspnea on exertion and Denies wheezing Gastrointestinal Gastrointestinal: Denies abdominal pain, Denies change in bowel habits, Denies diarrhea, Denies nausea and Denies vomiting Genitourinary Genitourinary: Denies hematuria, Denies flank pain, Denies urinary incontinence and Denies urinary urgency Musculoskeletal Musculoskeletal: Denies back pain, Denies muscle weakness, Denies neck pain, Denies numbness and Denies tingling Integumentary/Breasts Skin/Breast: Denies pruritus, Denies erythema, Denies rash and Denies wounds Neurologic Neurologic: Denies behavioral changes, Denies confusion, Denies dizziness, Denies frequent falls, Denies loss of vision, Denies numbness, Denies tingling and Denies weakness Psychiatric Psychiatric: Denies anxiety, Denies behavioral changes, Denies confusion, Denies depression, Denies homicidal ideation and Denies suicidal ideation Endocrine Endocrine: Denies fatigue, Denies flushing and Denies palpitations Hematologic/Lymphatic Hematologic/Lymphatic: Denies easy bruising Allergic/Immunologic Allergic/Immunologic: Denies urticaria, Denies throat swelling and Denies wheezing Patient History <Asha Ruiz PA-C - Last Filed: 06/21/23 18:53> Medical History Benign liver cyst Chronic thoracic back pain Depression History of sinus problem Osteoarthritis Pleurisy without effusion Rheumatoid arthritis Surgical History History of cholecystectomy Hx of arthroscopic knee surgery Family History Father Hypertension Diverticulitis Grandfather Heart disease Stroke Diverticulitis Grandmother Hypertension Diabetes mellitus Social History marital status: household members: spouse occupational status: employed Smoking Status: Never smoker alcohol intake: never substance use type: does not use Smoking Status: Never smoker Substance Use Type: does not use Exam <Asha Ruiz PA-C - Last Filed: 06/21/23 18:53> Narrative Exam Narrative: Const General:?cooperative, healthy appearing and comfortable HENWI Head:?normal to inspection Ears:?hearing grossly normal bilaterally Nose:?external nose normal Face and sinus:?normal facial exam and sinuses nontender Mouth:?oral mucosae normal Throat:?posterior oropharynx normal Eyes Chalazion still visualized in the right lower eyelid. There is some yellow discharge in the right eye. No periorbital swelling or erythema. Presentation was consistent with a chalazion and bacterial conjunctivitis. Neck Neck:?normal visual inspection and no lymphadenopathy noted Resp Effort & Inspection:?normal respiratory effort Auscultation:?clear to auscultation bilaterally Cardio Rate:?regular rate Rhythm:?regular rhythm Neuro General:?patient alert, patient awake and patient oriented x3 Initial Vital Signs Initial Vital Signs: Vital Signs Temperature 98.9 F 06/21/23 14:13 Pulse Rate 85 06/21/23 14:13 Respiratory Rate 16 06/21/23 14:13 Blood Pressure 137/67 06/21/23 14:13 Pulse Oximetry 100 06/21/23 14:13 Oxygen Delivery Method Room Air 06/21/23 14:13 <DO Rachel Zarate Last Filed: 06/23/23 08:41> Initial Vital Signs Initial Vital Signs: Vital Signs Temperature 98.9 F 06/21/23 14:13 Pulse Rate 85 06/21/23 14:13 Respiratory Rate 16 06/21/23 14:13 Blood Pressure 137/67 06/21/23 14:13 Pulse Oximetry 100 06/21/23 14:13 Oxygen Delivery Method Room Air 06/21/23 14:13 Course <Asha Ruiz PA-C - Last Filed: 06/21/23 18:53> Vital Signs Vital signs: Vital Signs - 8 hr 06/21/23 14:13 Temperature 98.9 F Pulse Rate 85 Respiratory Rate 16 Blood Pressure 137/67 Pulse Oximetry 100 Oxygen Delivery Method Room Air <DO Rachel Zarate Last Filed: 06/23/23 08:41> Vital Signs Vital signs: Vital Signs - 8 hr 06/21/23 14:13 Temperature 98.9 F Pulse Rate 85 Respiratory Rate 16 Blood Pressure 137/67 Pulse Oximetry 100 Oxygen Delivery Method Room Air MDM - Eye Problem <RADHA Celestin Last Filed: 06/21/23 18:53> MDM Narrative Medical decision making narrative: 52-year-old female presents to the ED with worsening eye irritation, discharge. Patient's symptoms and presentation consistent with bacterial conjunctivitis. Will prescribe topical antibiotics. Patient agrees to follow-up with ophthalmology as soon as possible. Recommend continued warm compresses. ED return precautions were discussed with patient. Patient verbalized understanding. Medical records reviewed: Yes Discharge Plan Departure Patient Disposition: Home Clinical Impression: Bacterial conjunctivitis Instructions: DI for Conjunctivitis Activity Restrictions/Additional Instructions: You were evaluated in the ED today for a right eye irritation and discharge. It appears that you might have developed conjunctivitis, for which you are being prescribed topical antibiotics. Please apply the antibiotics as prescribed. Please follow-up with [facility] at [phone] as soon as possible. Please also continue applying the warm compresses to the eye several times daily. Return to the ED if you have worsening symptoms, vision changes. Prescriptions: New moxifloxacin 0.5 % drops, viscous See Rx Instructions .ROUTE .COMPLEX Qty: 3 0RF Rx Instructions: 1-2 drp into right eye every 2 hours for 2 days, then every 6 hours for 5 days No Action methotrexate sodium 2.5 mg tablet See Rx Instructions .ROUTE .COMPLEX Patient Comments: take 5 tablets by mouth IN THE MORNING and 5 tablets IN THE EVENING ONE DAY PER WEEK Rx Instructions: 12.5 mg orally am and pm one day per week. (Saturdays) guanfacine 1 mg tablet 2 mg PO BEDTIME Patient Comments: take 1 tablet by mouth every morning then 2 tablets at bedtime AN...(REFER TO PRESCRIPTION NOTES). drospirenone-ethinyl estradiol 3-0.02 mg tablet 1 tab PO QPM folic acid 800 mcg Tablet 0.8 mg PO DAILY Probiotic 2 tab PO DAILY oxycodone-acetaminophen [Percocet] 5-325 mg tablet 1 tab PO Q4-6H PRN (Reason: pain) Qty: 20 0RF ondansetron 4 mg tablet,disintegrating 4 mg PO TID-QID PRN (Reason: nausea and vomiting) Qty: 30 0RF oxycodone-acetaminophen [Percocet] 5-325 mg tablet 1 tab PO Q4-6H PRN (Reason: painful procedure) Qty: 15 0RF lamotrigine 150 mg tablet 150 mg PO BEDTIME ascorbic acid (vitamin C) [Vitamin C] 500 mg Tablet 500 mg PO DAILY zinc 50 mg Capsule 50 mg PO DAILY drospirenone-ethinyl estradiol [JORDAN (28)] 3-0.02 mg Tablet 1 tab PO BEDTIME oxycodone 5 mg tablet 5 - 10 mg PO Q4-6H PRN (Reason: pain) Qty: 14 0RF cephalexin 500 mg capsule 500 mg PO TID Qty: 21 0RF meloxicam 15 mg tablet 7.5 mg PO QPM guanfacine 1 mg tablet 1 mg PO QAM bupropion HCl 150 mg tablet extended release 24 hr 450 mg PO DAILY Vitamin B-12 1 tab PO DAILY Referrals: Jevon Gonzalez DO [Primary Care Provider] - Stand Alone Forms: Patient Portal/API <Josefina Palencia DO - Last Filed: 06/23/23 08:41> Cosign ED Attending Nelson Attestation: I was immediately available in the department for consultation. Documentation has been reviewed.
== END 2023-06-21 16:30 | disposition home or self-care (01) ==
PROVIDERS: Emergency Provider Student in an Organized Health Care Education/Training Program; PCP Student in an Organized Health Care Education/Training Program
DX: H10.89 Other conjunctivitis (principal)
CPT/HCPCS: 99281; 99283